=== PATIENT | female | born 1950 | race Caucasian/White ===

== ENCOUNTER 2019-11-22 08:24 | Emergency (ER) | payer OTHER, SELFPAY ==
[2019-11-22 08:41] VITALS: BP 174/73; PULSE 90; RESP 18; TEMP 36.8; O2SAT 98; BMI 35.2
--- NOTE | 2019-11-22 09:28 | CT_ITS ---
EXAMINATION: CT HEAD WITHOUT CONTRAST CLINICAL INFORMATION: Headache. COMPARISON: Previous head CT most recent May 2018 TECHNIQUE: Contiguous axial imaging was performed from the skull base to vertex without intravenous administration of contrast. This CT examination was performed using dose optimization techniques as appropriate, variously including the following: *Automated exposure control *Adjustment of mA and/or kV according to patient size (this includes techniques or standardized protocols for targeted exams where dose is matched to indication/reason for exam; i.e. extremities or head) *Use of iterative reconstruction technique DLP: 613 mGy-cm FINDINGS: There is no evidence of an extra-axial collection. There is no evidence of intra or extra-axial hemorrhage. The ventricles and extra-axial CSF spaces are slightly prominent. There is a normal anatomic variant, cavum of septum pellucidum and cavum vergae. There is mild nonspecific periventricular white matter disease. No mass, mass effect or infarct is seen. View at bone windows is normal. There is inflammatory change in the left ethmoid air cells. Visualized paranasal sinuses, mastoid air cells and middle ears are otherwise clear. IMPRESSION: No acute findings.
--- NOTE | 2019-11-22 09:29 | ED_ITS ---
HPI - Headache General Chief Complaint: Headache Stated Complaint: HEADACHE Time Seen by Provider: 11/22/19 09:22 Source: patient Mode of arrival: ambulatory Limitations: no limitations History of Present Illness HPI Narrative: 69 YEARS OLD OF FEMALE PRESENTED AMBULATORY TO THE EMERGENCY DEPARTMENT WITH A CHIEF COMPLAINT OF A HEADACHE, SHE STATES THAT THE HEADACHE STARTED 2 WEEKS AGO, THERE IS NO VOMITING, NO FEVER NO NECK PAIN. SHE STATES THAT SHE HAD A REMOTE HISTORY OF A MIGRAINE HEADACHE. SHE HAS BEEN TAKING IMITREX WITHOUT ANY RELIEF OF MD elicited complaint: headache Pertinent past history: hypertension Onset (ago): week(s) (2) Onset description: gradually Location: other ( DIFFUSE) Severity: moderate Quality & Timing: aching Exacerbating factors: none Related Data Allergies Allergy/AdvReac Type Severity Reaction Status Date / Time codeine [Codeine] Allergy Mild UPSET Verified 11/22/19 08:41 STOMACH, visual impairment DEQUAN Inhibitors AdvReac Intermediate COUGH Verified 11/22/19 08:41 [DEQUAN INHIBITORS] hydrochlorothiazide AdvReac Intermediate HYPONATREMI Verified 11/22/19 08:41 [HYDROCHLOROTHIAZIDE] A dequan inhibitors Allergy Unknown Unknown Uncoded 11/22/19 08:41 Review of Systems Review of Systems: Yes all other systems are reviewed and are negative Cardiovascular: Cardiovascular: Reports no additional cardiovascular comp laints Gastrointestinal: Gastrointestinal: Reports no additional gastrointestinal complaints Neurologic: Reports system reviewed and no additional complaints, except as documented PMFSH Past Medical History Attestation statement: The following information was validated with the patient. Medical History Diabetes Hypertension Social History Social History Alcohol intake: never Smoking Status: Never smoker Use of substances other than those prescribed or required for medical reasons: No Advance Directives: No Advance Directives Information Provided: No Physical Exam Vital Signs: Vital Signs: Vital Signs Temp Pulse Resp BP Pulse Ox 11/22/19 10:22 84 18 124/56 L 99 11/22/19 08:41 98.3 F 90 18 174/73 H 98 Body Mass Index 35.2 Const: General: cooperative, healthy appearing, comfortable, no acute distress, well developed, alert, awake and Physically active HENMT: Head: Yes normal to inspection Eyes: General: appearance normal, both eyes and all related structures Neck: Neck: Yes normal visual inspection Chest: Chest palpation & inspection: normal inspection of the chest and normal palpation of entire chest wall Resp: Effort & Inspection: normal respiratory effort and able to speak in complete sentences Cardio: Jugular venous distension: no JVD Palpation: normal PMI Rate: regular rate GI: Inspection: Yes normal to inspection Skin: General skin exam: no rashes or lesions noted Rashes: no rashes Trauma: no lacerations or abrasions Course Reevaluation(s) Reevaluation #1: REEXAMINED SHE IS FEELING MUCH BETTER THE HEADACHE IS GONE, HEAD CT IS NEGATIVE, LABS ARE NORMAL, SHE CAN BE DISCHARGED HOME WITH FOLLOW-UP WITH THE PRIMARY CARE PHYSICIAN Time: 11:18 MDM - Headache Lab Data Result diagrams: 11/22/19 10:14 11/22/19 10:14 Labs: Lab Results 11/22/19 11/22/19 11/22/19 Range/Units 09:54 09:54 10:14 WBC Cancelled 6.5 RBC Cancelled 4.31 Hgb Cancelled 13.3 Hct Cancelled 39.5 MCV Cancelled 91.6 MCH Cancelled 30.9 MCHC Cancelled 33.7 RDW Cancelled 13.1 Plt Count Cancelled 188 MPV Cancelled 9.6 Immature Gran % (Auto) Cancelled 0.3 Neut % (Auto) Cancelled 64.1 Lymph % (Auto) Cancelled 26.1 Surry % (Auto) Cancelled 8.1 Eos % (Auto) Cancelled 1.1 Baso % (Auto) Cancelled 0.3 Lymph # (Auto) Cancelled 1.7 Surry # (Auto) Cancelled 0.5 Eos # (Auto) Cancelled 0.1 Baso # (Auto) Cancelled 0.0 Abs Immat Gran (auto) Cancelled 0.02 Absolute Neuts (auto) Cancelled 4.2 Absolute Nucleated RBC Cancelled 0.000 Nucleated RBC % (auto) Cancelled 0.0 Sodium Cancelled Potassium Cancelled Chloride Cancelled Carbon Dioxide Cancelled Anion Gap Cancelled BUN Cancelled Creatinine Cancelled Estim Creat Clear Calc Cancelled Estimated GFR Cancelled Random Glucose Cancelled Calcium Cancelled Total Bilirubin Cancelled AST Cancelled ALT Cancelled Alkaline Phosphatase Cancelled Total Protein Cancelled Albumin Cancelled 11/22/19 Range/Units 10:14 WBC RBC Hgb Hct MCV MCH MCHC RDW Plt Count MPV Immature Gran % (Auto) Neut % (Auto) Lymph % (Auto) Surry % (Auto) Eos % (Auto) Baso % (Auto) Lymph # (Auto) Surry # (Auto) Eos # (Auto) Baso # (Auto) Abs Immat Gran (auto) Absolute Neuts (auto) Absolute Nucleated RBC Nucleated RBC % (auto) Sodium 137 Potassium 4.2 Chloride 105 Carbon Dioxide 27 Anion Gap 9 L BUN 13 Creatinine 0.82 Estim Creat Clear Calc 52.4 Estimated GFR > 60 Random Glucose 140 H Calcium 8.5 Total Bilirubin 0.3 AST 46 H ALT 58 H Alkaline Phosphatase 87 Total Protein 6.9 Albumin [address] scan - head: Radiologist's impression: NAD Discharge Plan Discharge Clinical Impression: Headache Patient Disposition: Home, Self-Care Instructions: Acute Headache (ED)
[2019-11-22 10:17] LABS: MANUAL DIFF FLAG NO
[2019-11-22 10:22] VITALS: BP 124/56; PULSE 84; RESP 18; O2SAT 99
[2019-11-22 10:23] LABS: Basophils Percent Auto 0.3 % (0-2); Eosinophils Absolute Auto 0.1 X10*3/uL (0.0-0.4); Eosinophils Percent Auto 1.1 % (0-4); Hematocrit 39.5 % (37-47); Hemoglobin 13.3 g/dl (12.0-16.0); Imm Gran Abs Auto 0.02 X10*3/uL (0.00-0.03); Imm Gran Pct Auto 0.3 % (0.0-0.4); Lymphocytes Absolute Auto 1.7 X10*3/uL (1.2-4.9); Lymphocytes Percent Auto 26.1 % (20-40); Mean Corpuscular HGB Conc 33.7 g/dl (31.0-35.0); Mean Corpuscular Hemoglobin 30.9 pg (27.0-33.0); Mean Corpuscular Volume 91.6 fL (80-98); Mean Platelet Volume 9.6 fL (9.4-12.3); Monocytes Absolute Auto 0.5 X10*3/uL (0.1-1.2); Monocytes Percent Auto 8.1 % (2-11); Neutrophils Absolute Auto 4.2 X10*3/uL (2.0-8.3); Neutrophils Percent Auto 64.1 % (45-73); Platelet Count 188 X10*3/uL (160-400); Red Blood Count 4.31 X10*6/uL (4.20-5.50); Red Cell Distribution Width 13.1 % (11.0-16.0); White Blood Count 6.5 X10*3/uL (4.8-10.8)
[2019-11-22 10:53] LABS: Alanine Aminotransferase 58 U/L (0-31); Albumin Level 3.9 g/dL (3.5-5.0); Alkaline Phosphatase 87 U/L (39-117); Aspartate Amino Transferase 46 U/L (5-31); Bilirubin Total 0.3 mg/dL (0.0-1.0); Blood Urea Nitrogen 13 mg/dL (9-16); Calcium 8.5 mg/dL (8.4-10.2); Creatinine Clr Calc Pharmacy 52.4; Estimated Glomerular Filt Rate > 60; Glucose Random 140 mg/dL (60-115); Total Protein 6.9 g/dL (6.5-8.0)
[2019-11-22 11:07] LABS: Anion Gap 9 (12-20); Carbon Dioxide 27 mmol/L (22-29); Chloride 105 mmol/L (96-108); Potassium 4.2 mmol/l (3.3-5.1); Sodium 137 mmol/L (135-145)
[2019-11-22 11:22] VITALS: BP 148/63; PULSE 76; RESP 18; TEMP 36.8; O2SAT 98
== END 2019-11-22 11:55 | disposition home or self-care (01) ==
PROVIDERS: Emergency Provider Emergency Medicine; PCP Family Medicine
DX: R51.9 Headache, unspecified (principal); Z79.899 Other long term (current) drug therapy
CPT/HCPCS: 36415; 70450; 80053; 85025; 99284

== ENCOUNTER → 2019-11-26 09:12 | Outpatient (BNVA) | payer OTHER, SELFPAY | PROVIDERS: PCP Family Medicine; Referring Provider Family Medicine; Visit Provider Psychiatry & Neurology Neurology | DX: G47.33 Obstructive sleep apnea (adult) (pediatric) (principal) | CPT/HCPCS: 99204 ==

== ENCOUNTER → 2019-12-04 10:02 | Outpatient (BNVA) | payer OTHER, SELFPAY | PROVIDERS: PCP Family Medicine; Visit Provider Surgery | DX: C50.919 Malignant neoplasm of unspecified site of unspecified female breast (principal) | CPT/HCPCS: 99212 ==

== ENCOUNTER 2019-12-17 13:51 | Outpatient (REF) | payer OTHER, SELFPAY ==
--- NOTE | 2019-12-17 | US_ITS ---
EXAMINATION: US TRIPLEX SCANNING RIGHT UPPER EXTREMITY CLINICAL INFORMATION: Pain in right forearm COMPARISON: None. TECHNIQUE: Color-flow triplex imaging with spectral analysis and compression Doppler were performed on the right upper extremity. FINDINGS: Respiratory variation, normal compression and augmented flow are noted throughout the right upper extremity. The visualized basilic vein, cephalic vein, axillary vein and subclavian vein segments show no evidence of deep venous thrombosis. US/US venous duplex UE RT IMPRESSION: Normal triplex scan without evidence of deep venous thrombosis involving the right upper extremity.
--- NOTE | 2019-12-17 | XR_ITS ---
EXAMINATION: XR ELBOW, RIGHT CLINICAL INFORMATION: Right elbow pain COMPARISON: None TECHNIQUE: AP, lateral, and oblique views of the right elbow. FINDINGS: Chronic well-corticated ossification adjacent the medial epicondyle, presumably sequelae of remote prior trauma or injury (epicondylitis). No fracture, dislocation, or joint effusion seen. XR/XR elbow RT min 3V IMPRESSION: No acute osseous abnormality.
== END 2019-12-17 13:52 | disposition home or self-care (01) ==
LOC: HO.HMGCX 13:51
PROVIDERS: Visit Provider Emergency Medicine
DX: M25.521 Pain in right elbow (principal); M79.631 Pain in right forearm
CPT/HCPCS: 73080; 84550; 86618; 93971

== ENCOUNTER → 2020-01-13 09:20 | Outpatient (BNVA) | payer OTHER, SELFPAY | PROVIDERS: PCP Family Medicine; Referring Provider Family Medicine; Visit Provider Orthopaedic Surgery | DX: M77.10 Lateral epicondylitis, unspecified elbow (principal) | CPT/HCPCS: 99202 ==

== ENCOUNTER → 2020-01-20 19:14 | Outpatient (REF) | payer MEDICARE, SELFPAY | LOC: HO.SL 19:14 | PROVIDERS: PCP Family Medicine; Visit Provider Psychiatry & Neurology Neurology | DX: G47.33 Obstructive sleep apnea (adult) (pediatric) (principal) | CPT/HCPCS: 95810 ==

== ENCOUNTER → 2020-01-28 09:19 | Outpatient (BNVA) | payer MEDICARE, SELFPAY | PROVIDERS: PCP Family Medicine; Visit Provider Psychiatry & Neurology Neurology | DX: Z76.89 Persons encountering health services in other specified circumstances (principal) ==

== ENCOUNTER 2020-02-12 10:30 | Outpatient (RCR) | payer MEDICARE, SELFPAY ==
--- NOTE | 2020-02-12 10:34 | MHC.OT.DC ---
[address] [phone] F: [phone] Occupational Therapy Discharge Note Provider: Kevyn Perez Diagnosis: RIGHT LATERAL EPICONDYLITIS Date of Surgery: Date of Evaluation: 01/28/20 Date of Discharge: Treatments to Date: 5 Cancellations to Date: No Shows to Date: Discharge Status: Achieved Goals Improved Function Independent with HEP Patient Elected to Stop Discharge Summary: Pt REPORTS A GOOD DEC IN PAIN . PAINFREE AROM AND LIGHT ACTIVITY. 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 Electronically Signed By: RITA BENJAMIN OT CHT CLT Reviewed/agree with student documentation: N/A Therapist: Please Sign and return to therapist, thank you for your referral.
== END 2020-04-30 15:40 | disposition other institution (70) ==
LOC: HO.OT 10:30
PROVIDERS: Visit Provider Orthopaedic Surgery
DX: M77.11 Lateral epicondylitis, right elbow (principal)
CPT/HCPCS: 29130; 97033; 97035; 97110; 97140; 97165; 97760

== ENCOUNTER 2020-02-20 12:22 | Outpatient (REF) | payer MEDICARE, SELFPAY ==
[2020-02-20 14:51] LABS: Alanine Aminotransferase 62 U/L (0-31); Albumin Level 3.8 g/dL (3.5-5.0); Alkaline Phosphatase 84 U/L (39-117); Anion Gap 10 (12-20); Aspartate Amino Transferase 51 U/L (5-31); Bilirubin Total 0.3 mg/dL (0.0-1.0); Blood Urea Nitrogen 12 mg/dL (9-16); Calcium 8.4 mg/dL (8.4-10.2); Carbon Dioxide 27 mmol/L (22-29); Chloride 105 mmol/L (96-108); Cholesterol 171 mg/dL; Estimated Glomerular Filt Rate > 60; Glucose Random 153 mg/dL (60-115); HDL Cholesterol 47 mg/dL; LDL Cholesterol Calculated 101 mg/dl; Potassium 4.1 mmol/l (3.3-5.1); Sodium 138 mmol/L (135-145); Total Protein 7.5 g/dL (6.5-8.0); Triglycerides 119 mg/dL
[2020-02-20 15:12] LABS: Creatinine Urine 37.63 mg/dL; Microalbum/Creatinine Ratio Ur 71.7 ug/mg cr
[2020-02-20 15:13] LABS: Vitamin D 25-OH Total 35.4 ng/mL (>30)
[2020-02-21 08:37] LABS: C Peptide 6.79 ng/mL (0.80-3.85); LDL Cholesterol Direct 108 mg/dL (<100)
== END 2020-02-20 12:23 | disposition home or self-care (01) ==
LOC: HO.LAB 12:22
PROVIDERS: PCP Family Medicine; Referring Provider Family Medicine; Visit Provider Internal Medicine
DX: E11.65 Type 2 diabetes mellitus with hyperglycemia (principal); Z79.4 Long term (current) use of insulin; I10 Essential (primary) hypertension; E55.9 Vitamin D deficiency, unspecified; E78.5 Hyperlipidemia, unspecified
CPT/HCPCS: 36415; 80053; 80061; 82043; 82306; 82947; 83721; 84681; 99202

== ENCOUNTER → 2020-03-13 08:49 | Outpatient (BNVA) | payer MEDICARE, SELFPAY | PROVIDERS: PCP Family Medicine; Visit Provider Dietitian, Registered ==

== ENCOUNTER → 2020-03-17 10:13 | Outpatient (BNVA) | payer MEDICARE, SELFPAY | PROVIDERS: PCP Family Medicine; Visit Provider Psychiatry & Neurology Neurology | DX: Z13.89 Encounter for screening for other disorder (principal) | CPT/HCPCS: Q3014 ==

== ENCOUNTER → 2020-04-22 09:41 | Outpatient (BNVA) | payer MEDICARE, SELFPAY | PROVIDERS: PCP Family Medicine; Visit Provider Surgery | DX: C50.919 Malignant neoplasm of unspecified site of unspecified female breast (principal) | CPT/HCPCS: 99212 ==

== ENCOUNTER 2020-05-18 12:12 | Outpatient (REF) | payer MEDICARE, SELFPAY ==
--- NOTE | ~2020-05-18 | MM_ITS ---
EXAMINATION: MM DIAGNOSTIC DIGITAL BREAST TOMOSYNTHESIS, BILATERAL US DIAGNOSTIC ULTRASOUND BREAST, RIGHT CLINICAL INFORMATION: Right breast pain 1-2 months upper outer quadrant. Prior history bilateral breast cancer, most recently left 2018. Left excisional biopsy for calcifications upper quadrant 03/18/2019 (fat necrosis, calcifications, and chronic inflammation). Due for yearly. COMPARISON: Mammography: 03/18/2019, 02/21/2019, 11/20/2017, 11/01/2017, 10/27/2017, 03/08/2017 TECHNIQUE: Digital breast tomosynthesis is performed in both the craniocaudal and mediolateral oblique views along with computer-aided detection (CAD). Synthesized 2D images are generated from the tomosynthesis. Additional views are obtained: Magnification left CC, magnification left ML, magnification left MLO x2, right CC, exaggerated left CC. Ultrasound right breast is targeted to both the inner and outer quadrants. Grayscale imaging and color Doppler are performed without and with harmonics. FINDINGS: The breasts are heterogeneously dense, which may obscure small masses (ACR BI-RADS breast composition Category c). Breast tissue borders on average fibroglandular. There are bilateral post surgical changes with reduced breast size and scarring and dystrophic calcifications. Smooth left breast thickening again seen. There are segmental calcifications posterior upper left breast better appreciated on current exam with magnification views. They are likely without significant change from prior left MLO views in 2018. These calcifications will be reassessed again with mammography in 6 months. The right breast shows no interval mass or architectural abnormality or abnormal calcifications. There is no coarsening of the Mateo's ligaments. No focal inflammatory changes. Ultrasound right breast demonstrates no cystic or solid mass or architectural abnormality. No edema tracking in soft tissue planes. No hyperemia. Results are discussed with the patient at time of visit, using an bench manager. MM/MM tomosynthesis diagnostic BI IMPRESSION: 1. Right: No mammographic evidence of malignancy or inflammatory changes. Unremarkable right breast ultrasound. 2. Left: Probable benign calcifications posterior upper breast, likely chronic. ASSESSMENT: BI-RADS 3: Probably Benign RECOMMENDATION: 1. Patient's right breast symptoms should be based on the clinical impression. 2. Diagnostic left mammography in 6 months to include magnification views. This patient's information was entered into a reminder system with a target due date for their next mammogram.
--- NOTE | ~2020-05-18 | US_ITS ---
Right breast ultrasound is described in single combined report along with the bilateral diagnostic digital breast tomosynthesis under accession number [id number].
== END 2020-05-18 12:13 | disposition home or self-care (01) ==
LOC: HO.MAMMO 12:12
PROVIDERS: PCP Family Medicine; Visit Provider Surgery
DX: N64.4 Mastodynia (principal); Z85.3 Personal history of malignant neoplasm of breast
CPT/HCPCS: 76642; 77062; 77066

== ENCOUNTER → 2020-06-12 09:20 | Outpatient (BNVA) | payer MEDICARE, SELFPAY | PROVIDERS: PCP Family Medicine; Visit Provider Dietitian, Registered | DX: E11.65 Type 2 diabetes mellitus with hyperglycemia (principal); Z79.4 Long term (current) use of insulin | CPT/HCPCS: 97803 ==

== ENCOUNTER → 2020-07-23 09:46 | Outpatient (BNVA) | payer MEDICARE, SELFPAY | PROVIDERS: Visit Provider Surgery | DX: C50.919 Malignant neoplasm of unspecified site of unspecified female breast (principal) | CPT/HCPCS: 99212 ==

== ENCOUNTER → 2020-07-27 13:24 | Outpatient (BNVA) | payer MEDICARE, SELFPAY | PROVIDERS: PCP Family Medicine; Visit Provider Internal Medicine Endocrinology, Diabetes & Metabolism | DX: Z13.89 Encounter for screening for other disorder (principal) | CPT/HCPCS: Q3014 ==

== ENCOUNTER 2020-07-28 09:06 | Outpatient (REF) | payer MEDICARE, SELFPAY ==
[2020-07-28 10:37] LABS: Estimated Average Glucose 126 mg/dL
[2020-07-28 10:46] LABS: Alanine Aminotransferase 31 U/L (0-31); Alkaline Phosphatase 88 U/L (39-117); Anion Gap 13 (12-20); Aspartate Amino Transferase 28 U/L (5-31); Bilirubin Total 0.4 mg/dL (0.0-1.0); Blood Urea Nitrogen 16 mg/dL (9-16); Calcium 9.3 mg/dL (8.4-10.2); Carbon Dioxide 28 mmol/L (22-29); Chloride 103 mmol/L (96-108); Cholesterol 126 mg/dL; Estimated Glomerular Filt Rate 51; Glucose Fasting 72 mg/dL (60-99); HDL Cholesterol 51 mg/dL; LDL Cholesterol Calculated 63 mg/dl; Potassium 4.7 mmol/L (3.3-5.1); Sodium 139 mmol/L (135-145); Total Protein 7.5 g/dL (6.5-8.0); Triglycerides 64 mg/dL
[2020-07-29 08:42] LABS: LDL Cholesterol Direct 61 mg/dL (<100)
== END 2020-07-28 09:07 | disposition home or self-care (01) ==
LOC: HO.LAB 09:06
PROVIDERS: Visit Provider Internal Medicine Endocrinology, Diabetes & Metabolism
DX: E11.65 Type 2 diabetes mellitus with hyperglycemia (principal)
CPT/HCPCS: 36415; 80053; 80061; 83036; 83721

== ENCOUNTER 2020-08-03 10:49 | Day surgery (SDC) | payer MEDICARE, SELFPAY ==
--- NOTE | 2020-08-03 11:54 | MHC.SHP ---
Pre-Procedural Eval Section A Date of Service: 08/03/20 The patient is an INPATIENT: No Changes since office visit: Yes Patient answered all questions; No Cold of Flu in the past 2 weeks, No New Medical Problems and No Changes in Medication The History & Physical has been completed within 30 days and I have reviewed it.: Yes Section B Chief Complaint: Abdominal Wall Lipoma Allergies: Allergies Allergy/AdvReac Type Severity Reaction Status Date / Time codeine [Codeine] Allergy Mild UPSET Verified 08/03/20 11:29 STOMACH, visual impairment DEQUAN Inhibitors AdvReac Intermediate COUGH Verified 08/03/20 11:29 [DEQUAN INHIBITORS] hydrochlorothiazide AdvReac Intermediate HYPONATREMI Verified 08/03/20 11:29 [HYDROCHLOROTHIAZIDE] A Plan Diagnosis/Plan: Unchanged I have reviewed the history and physical and performed a pertinent physical examination on my patient. No changes have occurred unless specified.
[2020-08-03 11:58] VITALS: BP 135/61; PULSE 89; RESP 18; TEMP 36; O2SAT 96; BMI 32.8
--- NOTE | 2020-08-03 12:00 | HO.ANESPROP2 ---
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 (Acute) Diabetes type 2, uncontrolled (Acute) Breast pain, right (Acute) Obstructive sleep apnea (Acute) Vitamin D deficiency (Acute) HLD (hyperlipidemia) (Acute) HTN (hypertension) (Acute) T2DM (type 2 diabetes mellitus) (Acute) Triple negative malignant neoplasm of breast (Acute) Invasive ductal carcinoma of breast (Acute) Obstructive sleep apnea (Acute) Past Medical History Medical History Barretts esophagus Bipolar disorder Diabetes Diabetes type 2, uncontrolled Hepatitis C HLD (hyperlipidemia) HTN (hypertension) Hypertension Invasive ductal carcinoma of breast 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 Father No problems noted. Mother No problems noted. Surgical History Surgical History H/O parotidectomy History of cholecystectomy Status post left breast lumpectomy Status post right breast lumpectomy Social History Social History Alcohol intake: never Advance Directives: No Advance Directives Information Provided: Yes Current occupational status: unemployed Current occupation: right handed Meds Allergies Allergy/AdvReac Type Severity Reaction Status Date / Time codeine [Codeine] Allergy Mild UPSET Verified 08/03/20 11:29 STOMACH, visual impairment DEQUAN Inhibitors AdvReac Intermediate COUGH Verified 08/03/20 11:29 [DEQUAN INHIBITORS] hydrochlorothiazide AdvReac Intermediate HYPONATREMI Verified 08/03/20 11:29 [HYDROCHLOROTHIAZIDE] A Active Medications: Current Medications Generic Name Dose Route Start Last Admin Trade Name Freq PRN Reason Stop Dose Admin Lactated Ringer's 1,000 mls @ 100 mls/hr 08/03/20 11:30 Lr IVCONT .Q10H [place] Home Medications Medication Instructions Recorded Confirmed Last Taken Type albuterol sulfate 90 mcg/actuation 2 puff INHALATION Q4-6H PRN 12/04/19 07/27/20 Unknown History aerosol inhaler amlodipine 5 mg tablet 5 mg PO DAILY 12/04/19 07/27/20 08/03/20 06:30 History ascorbate calcium (vitamin C) 500 500 mg PO BID 12/04/19 07/27/20 Unknown History mg tablet cholecalciferol (vitamin D3) 25 25 mcg PO DAILY 12/04/19 07/27/20 08/03/20 06:30 History mcg (1,000 unit) capsule clonazepam 0.5 mg tablet 0.5 mg PO DAILY 12/04/19 07/27/20 08/03/20 06:30 History folic acid 1 mg tablet 1 mg PO DAILY 12/04/19 07/27/20 08/03/20 06:30 History gabapentin 100 mg capsule 100 mg PO BID 12/04/19 07/27/20 08/03/20 06:30 History metoprolol tartrate 50 mg tablet 50 mg PO BID 12/04/19 07/27/20 08/03/20 06:30 History vitamin B complex 1 tab PO DAILY 12/04/19 07/27/20 Unknown History acetaminophen 500 mg tablet 0 mg PO 02/20/20 07/27/20 Unknown History blood sugar diagnostic #10 ea 02/20/20 07/27/20 Unknown History calcium carbonate 500 mg calcium 500 mg PO BID 02/20/20 07/27/20 08/03/20 06:30 History (1,250 mg) tablet cyanocobalamin (vitamin B-12) 1,000 mcg PO QAM 02/20/20 07/27/20 08/03/20 06:30 History 1,000 mcg tablet duloxetine 60 mg capsule,delayed 60 mg PO DAILY 02/20/20 07/27/20 08/03/20 06:30 History release mirtazapine 30 mg tablet [id number] mg PO BEDTIME 02/20/20 07/27/20 Unknown History olanzapine 10 mg tablet 10 mg PO BEDTIME 02/20/20 07/27/20 Unknown History pen needle, diabetic 31 gauge x #50 ea 02/20/20 07/27/20 Unknown History 3/16 sumatriptan succinate 50 mg tablet 50 mg PO 02/20/20 07/27/20 Unknown History Exam Exam Date and Time: August 03, 2020 [address] Air[address] Mallampati Class: IV TM Dist: >3cm Neck ROM: Full Heart: RRR Lungs: CTA
[2020-08-03] MEDS: Lactated Ringers 1,000 ML 100 ML IVCONT (12:06)
[2020-08-03 12:07] LABS: Glucose, Whole Blood 82 mg/dL (60-115)
--- NOTE | 2020-08-03 12:54 | P.OP_ITS ---
Operative Note Operative Note Date of Service: 08/03/20 Narrative: Preoperative diagnosis: Lipoma right abdominal wall Postoperative diagnosis:Subcutaneous inclusion cyst right abdominal wall Procedure: Excision of subcutaneous cyst right abdominal wall Surgeon: Adrian Barnes MD Clamp Jig Assembler: No physician Anesthesia: General LMA Indications for procedure:69 year old female with history of bilateral breast cancer presenting with a soft tissue mass in the right upper abdomen, tender to palpation. Patient requests an excision under general anesthesia. Operative findings: Cystic lesion in the subcutaneous tissue, 1 cm diameter Specimen:Lesion right abdominal wall Estimated blood loss: 1 ml Complications:none Procedure details:Patient was brought to the OR and placed in a supine position. After administering general anesthesia the patient's abdomen was prepped with ChloraPrep and draped in a sterile fashion. A surgical time-out was called the consent confirmed. Patient received preoperative antibiotics and Venodyne boots were placed. Local anesthesia consisting of 0.25% Sensorcaine with epinephrine was infiltrated in a transverse fashion over the palpable mass in the right upper quadrant. Incision was then made with a scalpel carried out through subcutan eous tissue. Sharp dissection was then used to dissect and excise the palpable mass in the right upper quadrant. This appeared to be a cystic lesion within the subcutaneous tissue without attachment to the dermis or epidermis. The lesion was completely excised and sent to pathology for further examination. Wounds were irrigated with saline solution and suctioned dry. Dermis was then reapproximated using interrupted 4-0 Polysorb sutures. Skin was then closed using a running subcuticular 4-0 Polysorb suture. Steri-Strips 2 x 2 gauze and Tegaderm were then applied. The patient tolerated the procedure well. Sponge, instrument, needle counts reported as correct. Patient was transferred to PACU in stable condition.
[2020-08-03 13:01] VITALS: BP 147/64; PULSE 109; RESP 20; TEMP 36.1; O2SAT 95
[2020-08-03 13:06] VITALS: BP 144/63; PULSE 103; RESP 18; O2SAT 96
[2020-08-03 13:11] VITALS: BP 128/63; PULSE 101; RESP 16; O2SAT 95
[2020-08-03 13:15] VITALS: BP 149/68; PULSE 98; RESP 16; O2SAT 96
[2020-08-03 13:30] VITALS: BP 144/69; PULSE 91; RESP 18; O2SAT 96
== END 2020-08-03 14:06 | disposition home or self-care (01) ==
PROVIDERS: Visit Provider Surgery
PROC: (CPT 11401; principal; 2020-08-03 12:40)
DX: L72.0 Epidermal cyst (principal); K22.70 Barrett's esophagus without dysplasia; E11.9 Type 2 diabetes mellitus without complications; I10 Essential (primary) hypertension; M06.9 Rheumatoid arthritis, unspecified; Z85.3 Personal history of malignant neoplasm of breast; Z79.4 Long term (current) use of insulin; Z79.899 Other long term (current) drug therapy; Z90.49 Acquired absence of other specified parts of digestive tract; Z88.8 Allergy status to other drugs, medicaments and biological substances
CPT/HCPCS: 11401; 82947; 88304; J0690; J2250; J2405; J3010

== ENCOUNTER → 2020-08-11 08:41 | Outpatient (BNVA) | payer MEDICARE, SELFPAY | PROVIDERS: Visit Provider Psychiatry & Neurology Neurology | DX: Z13.89 Encounter for screening for other disorder (principal) | CPT/HCPCS: Q3014 ==

== ENCOUNTER → 2020-08-13 11:21 | Outpatient (BNVA) | payer MEDICARE, SELFPAY | PROVIDERS: Visit Provider Surgery | DX: Z48.817 Encounter for surgical aftercare following surgery on the skin and subcutaneous tissue (principal); Z87.2 Personal history of diseases of the skin and subcutaneous tissue | CPT/HCPCS: 99212 ==

== ENCOUNTER → 2020-08-14 09:45 | Outpatient (BNVA) | payer MEDICARE, SELFPAY | PROVIDERS: Visit Provider Dietitian, Registered | DX: E11.65 Type 2 diabetes mellitus with hyperglycemia (principal); Z79.4 Long term (current) use of insulin | CPT/HCPCS: 97803 ==

== ENCOUNTER 2020-09-13 07:48 | Emergency (ER) | payer MEDICARE, SELFPAY ==
--- NOTE | ~2020-09-13 | XR_ITS ---
EXAMINATION: PORTABLE CHEST 1 VIEW CLINICAL INFORMATION: MED CLEARANCE . COMPARISON: 05/25/2018. TECHNIQUE: Portable frontal view of the chest was obtained. FINDINGS: The lungs are well expanded. No focal infiltrate, effusion, edema, or pneumothorax. Cardiac and mediastinal silhouettes are within normal limits for size with vascular calcification in aorta. Degenerative changes in the spine and shoulders. No acute bony abnormality seen. XR/XR chest 1V IMPRESSION: No evidence of acute disease.
--- NOTE | ~2020-09-13 | CT_ITS ---
EXAMINATION: CT HEAD WITHOUT CONTRAST CLINICAL INFORMATION: Weakness for one month COMPARISON: Head CT November 22, 2019 TECHNIQUE: Contiguous axial imaging was performed from the skull base to vertex without intravenous administration of contrast. This CT examination was performed using dose optimization techniques as appropriate, variously including the following: *Automated exposure control *Adjustment of mA and/or kV according to patient size (this includes techniques or standardized protocols for targeted exams where dose is matched to indication/reason for exam; i.e. extremities or head) *Use of iterative reconstruction technique DLP: 610 mGy-cm FINDINGS: There is no evidence of acute intracranial hemorrhage or territorial infarction. No abnormal mass effect or midline shift is appreciated. Valladares-white differentiation is well preserved. No extra-axial fluid collections. The ventricular system and cortical sulci are prominent, consistent with volume loss. There are areas of low density in the periventricular and subcortical white matter, most consistent with sequelae of microvascular ischemic change. The osseous structures and soft tissues are normal. There are calcifications of the cavernous internal carotid arteries. The visualized paranasal sinuses and mastoid air cells are well aerated. CT/CT head/brain wo con IMPRESSION: Chronic microvascular ischemic changes with no CT evidence of acute intracranial abnormality.
[2020-09-13 08:21] VITALS: BP 152/71; PULSE 101; RESP 16; O2SAT 99; BMI 30.8
--- NOTE | 2020-09-13 08:56 | ECG_ITS ---
Test Reason : PYSCH Blood Pressure : / mmHG Vent. Rate : 096 BPM Atrial Rate : 096 BPM P-R Int : 118 ms QRS Dur : 070 ms QT Int : 336 ms P-R-T Axes : 074 -04 002 degrees QTc Int : 424 ms Normal sinus rhythm Voltage criteria for left ventricular hypertrophy Inferior infarct , age undetermined Abnormal ECG When compared with ECG of 25-MAY-2018 22:04, Inferior infarct is now Present Referred By: Mayela Coughlin Electronically Signed By:Taurus Szymanski
[2020-09-13 10:13] LABS: MANUAL DIFF FLAG NO
[2020-09-13 10:14] LABS: Basophils Percent Auto 0.2 % (0-2); Eosinophils Percent Auto 0.1 % (0-4); Hematocrit 44.4 % (37-47); Hemoglobin 14.7 g/dl (12.0-16.0); Imm Gran Abs Auto 0.05 X10*3/uL (0.00-0.03); Imm Gran Pct Auto 0.4 % (0.0-0.4); Lymphocytes Absolute Auto 1.6 X10*3/uL (1.2-4.9); Lymphocytes Percent Auto 12.5 % (20-40); Mean Corpuscular HGB Conc 33.1 g/dl (31.0-35.0); Mean Corpuscular Hemoglobin 30.9 pg (27.0-33.0); Mean Corpuscular Volume 93.5 fL (80-98); Mean Platelet Volume 10.1 fL (9.4-12.3); Monocytes Absolute Auto 0.7 X10*3/uL (0.1-1.2); Monocytes Percent Auto 5.6 % (2-11); Neutrophils Absolute Auto 10.7 X10*3/uL (2.0-8.3); Neutrophils Percent Auto 81.2 % (45-73); Platelet Count 202 X10*3/uL (160-400); Red Blood Count 4.75 X10*6/uL (4.20-5.50); Red Cell Distribution Width 13.3 % (11.0-16.0); White Blood Count 13.1 X10*3/uL (4.8-10.8)
[2020-09-13 10:43] VITALS: BP 151/74; PULSE 84; RESP 16; O2SAT 96
[2020-09-13 10:44] LABS: Alanine Aminotransferase 35 U/L (0-31); Alkaline Phosphatase 94 U/L (39-117); Anion Gap 16 (12-20); Aspartate Amino Transferase 25 U/L (5-31); Bilirubin Total 0.3 mg/dL (0.0-1.0); Blood Urea Nitrogen 13 mg/dL (9-16); Calcium 9.4 mg/dL (8.4-10.2); Carbon Dioxide 20 mmol/L (22-29); Chloride 107 mmol/L (96-108); Creatinine Clr Calc Pharmacy 46.4; Estimated Glomerular Filt Rate 59; Glucose Random 147 mg/dL (60-115); Magnesium 2.2 mg/dL (1.6-2.6); Sodium 138 mmol/L (135-145); Total Protein 8.2 g/dL (6.5-8.0)
[2020-09-13 10:45] LABS: B Type Natriuretic Peptide < 10 pg/mL (<100)
[2020-09-13 11:01] LABS: Influenza A PCR NEGATIVE (Negative); Influenza B PCR NEGATIVE (Negative); Resp Syncy Virus RNA Qual PCR NEGATIVE (Negative); SARS COV2 PCR INHOUSE NEGATIVE (Negative)
[2020-09-13 11:17] LABS: Lactic Acid 1.4 mmol/L (0.5-2.0)
[2020-09-13 12:01] LABS: Glucose Urine UA NEG (NEG); Leukocyte Esterase Urine 3+ (NEG); Nitrite Urine NEG (NEG); Specific Gravity - Urine <= 1.005 (1.005-1.025); UACC Culture Trigger YES; Urine Blood TRACE (NEG); Urine Ketones NEG (NEG); Urine Protein NEG (NEG-TRACE)
[2020-09-13 12:07] LABS: Appearance Urine HAZY; Color Urine STRAW
--- NOTE | 2020-09-13 12:13 | ED.PSYCH ---
HPI - Psych General Chief Complaint: Psychiatric Symptoms Stated Complaint: Psychiatric Symptoms Time Seen by Provider: 09/13/20 08:46 Source: patient and family Mode of arrival: ambulatory Limitations: language barrier (Cuban-speaking) History of Present Illness HPI Narrative: 69-year-old female with a past medical history of diabetes, hypertension, hyperlipidemia, triple negative malignant neoplasm of breast, invasive ductal carcinoma of breast, obstructive sleep apnea and vitamin-D deficiency who is presenting to the ED with her daughter at bedside because the daughter feels like her mother has become more withdrawn and is not wanting to go to her day program Monday to Monday that she used to be very excited about and she is not eating and drinking like she normally would unless her daughter puts the food in front of her and tells her to eat. She reports that she is med compliant. She recently had an increased dose of olanzapine from 10 mg at bedtime to 15 mg at bedtime although daughter does not see any improvement. The patient denies any of this reports that she is going to the program and is not having any trouble eating. The daughter is just concerned and would like her to be seen psychiatrically an inpatient for psychiatric. Patient denies any symptoms at this time she reports she feels completely fine. Patient denies any drug or alcohol usage. She denies any SI/HI/auditory visual hallucinations thoughts of self-injury. MD complaint: other (Withdrawn) Onset (ago): month(s) (Over the past month) Duration: constant and getting worse History of same: No Relieving factors: none Exacerbating factors: none Associated psychiatric symptoms: none Associated symptoms: denies other symptoms Treatments prior to arrival: none Related Data Home Medications Medication Instructions Recorded Confirmed albuterol sulfate 90 mcg/actuation 2 puff INHALATION Q4-6H PRN 12/04/19 09/13/20 aerosol inhaler (ProAir HFA) amlodipine 5 mg tablet 5 mg PO DAILY 12/04/19 09/13/20 cholecalciferol (vitamin D3) 25 25 mcg PO DAILY 12/04/19 09/13/20 mcg (1,000 unit) capsule clonazepam 0.5 mg tablet (Klonopin) 0.5 mg PO DAILY 12/04/19 09/13/20 folic acid 1 mg tablet 1 mg PO DAILY 12/04/19 09/13/20 gabapentin 100 mg capsule 100 mg PO BID 12/04/19 09/13/20 metoprolol tartrate 50 mg tablet 50 mg PO BID 12/04/19 09/13/20 blood sugar diagnostic #10 ea 02/20/20 07/27/20 cyanocobalamin (vitamin B-12) 1,000 mcg PO QAM 02/20/20 09/13/20 1,000 mcg tablet duloxetine 60 mg capsule,delayed 60 mg PO DAILY 02/20/20 09/13/20 release olanzapine 10 mg tablet 15 mg PO BEDTIME 02/20/20 09/13/20 pen needle, diabetic 31 gauge x #50 ea 02/20/20 07/27/2004/21 mirtazapine 30 mg tablet 30 mg PO DAILY 09/13/20 09/13/20 Previous Rx's Medication Instructions Recorded [id number]-smloruhkwvdsc-kbwkfrob 1 cap PO Q8H PRN #10 cap 11/22/19 50 mg-300 mg-40 mg capsule (Fioricet) Abdirahman POST77.10 #1 ea 01/17/20 Lantus Solostar U-100 Insulin 100 10 unit SUBCUT QPM 30 Days #15 ml 07/27/20 unit/mL (3 mL) subcutaneous pen NS (insulin glargine) atorvastatin 40 mg tablet 40 mg PO DAILY 30 Days #30 tab 07/27/20 losartan 25 mg tablet 25 mg PO DAILY 30 Days #30 tab 07/27/20 semaglutide (Ozempic) 0.5 mg SUBCUT QWEEK #1.5 ml 07/27/20 Allergies Allergy/AdvReac Type Severity Reaction Status Date / Time codeine [Codeine] Allergy Mild UPSET Verified 08/03/20 11:29 STOMACH, visual impairment DEQUAN Inhibitors AdvReac Intermediate COUGH Verified 08/03/20 11:29 [DEQUAN INHIBITORS] hydrochlorothiazide AdvReac Intermediate HYPONATREMI Verified 08/03/20 11:29 [HYDROCHLOROTHIAZIDE] A Review of Systems Review of Systems: Constitutional : No Fever, No Chills ENT/Mouth : No Ear Pain, No Nasal Congestion, No sore throat Eyes: No Eye Pain, No Swelling, No Redness Cardiovascular : No Chest Pain, No SOB Respiratory : No Cough, No Sputum, No Dyspnea Gastrointestinal : No ingestions, No Nausea, No Vomiting, No Diarrhea, No Hematochezia, No Melena Genitourinary : No Dysuria, No Urinary Frequency, No Hematuria Musculoskeletal : No Myalgias Skin : No Skin Lesions, No rash Neuro : No Weakness, No Numbness, No Paresthesias, No Dizziness, No Headache Psych : No Anxiety, No Depression, No SI, + No thoughts of self injury, No HI, No AVH, Heme/Lymph: No Lymphadenopathy Endocrine : No Polyuria, No Polydipsia Yes all other systems are reviewed and are negative [facility] Past Medical History Attestation statement: The following information was validated with the patient. Medical History Barretts esophagus Bipolar disorder Diabetes Diabetes type 2, uncontrolled Hepatitis C HLD (hyperlipidemia) HTN (hypertension) Hypertension Invasive ductal carcinoma of breast [facility] (current) use of insulin Rheumatoid arthritis T2DM (type 2 diabetes mellitus) Vitamin D deficiency Surgical History H/O parotidectomy History of cholecystectomy Status post left breast lumpectomy Status post right breast lumpectomy Family History Family History Daughter No problems noted. Father No problems noted. Mother No problems noted. Social History Social History Alcohol intake: never Patient Tobacco Use Status: Never used Tobacco Use of substances other than those prescribed or required for medical reasons: No Advance Directives: Yes Advance Directives Information Provided: No Advance Directives on File: No Current occupational status: unemployed Current occupation: right handed Physical Exam Vital Signs: Vital Signs: Last Vital Signs Temp 97.8 F 09/13/20 15:32 Pulse 80 09/13/20 15:32 Resp 16 09/13/20 15:32 BP 143/53 H 09/13/20 15:32 Pulse Ox 99 09/13/20 15:32 Body Mass Index 30.8 vital signs have been reviewed as normal and appeared to be correct. Blood pressure hypertensive at 152/71. Heart rate tachycardic at 101. Respiration rate normal. Temperature normal. Oxygen saturation normal. Appearance: Alert. Oriented X3. No acute distress. Head: Normal external exam. Normocephalic. Atraumatic. Eyes: PERRLA. EOMI. Conjunctiva and sclera normal. Eyelids normal. ENT: Pharynx normal. Uvula midline. Moist mucous membranes. Neck: Normal inspection. Neck supple. FROM. No adenopathy. Thyroid Normal. No meningeal signs. No neck mass noted. CVS: Normal heart rate and rhythm. Heart sound normal. No murmurs noted. Pulses normal throughout. Respiratory: No respiratory distress. Painless inspiration. Breath sounds normal. No wheezes/rales/rhonchi noted. Chest nontender. No accessory muscle usage noted or decreased air movement noted. Abdomen: Soft and nontender. Bowel sounds normal in all 4 quadrants. No distention noted. No organomegaly noted. No visible injury noted. Back: No CVA tenderness. Full range of motion noted. Nontender. Skin: Skin warm and dry. Normal skin color. Normal skin turgor. No rashes/lesions/lacerations noted. Extremities: No lower extremity edema. No calf tenderness is noted. exhibit normal range of motion. Extremities nontender. Neuro: Oriented X 3. No motor deficit. No sensory deficit. Reflexes normal. Psych: Appearance grossly normal, well-kept, mental status normal, speech and movement normal, speech clear, patient appears very sad and anxious along with depressed. Is cooperative. Normal thought process. Normal thought content. Normal good insight. Judgment good. Course Course Course Narrative: 9am - 69-year-old female presenting to the ED with her daughter at bedside because the daughter feels like her mother has become more withdrawn and is not wanting to go to her day program Monday to Monday that she used to be very excited about and she is not eating and drinking like she normally would unless her daughter puts the food in front of her and tells her to eat. She reports that she is med compliant. She recently had an increased dose of olanzapine from 10 mg at bedtime to 15 mg at bedtime although daughter does not see any improvement. The patient denies any of this reports that she is going to the program and is not having any trouble eating. The daughter is just concerned and would like her to be seen psychiatrically an inpatient for psychiatric. Plan: Labs, CXR, EKG, CT scan of brain without contrast, UA then re-evaluate. Reevaluation(s) Reevaluation #1: - WBC at 13,000. Carbon dioxide 20. Random glucose 147. ALT 35. Total protein 8.2. Otherwise all other labs are within normal limits. UA revealed 3+ leukocytes and 30-40 white blood cells although patient has +3 epithelial cells and urine bacteria will start the patient on Ceftin for UTI and then patient's urine culture will have to be followed up on. Otherwise all other labs are within normal limits. - CT scan of brain revealed chronic changes no acute processes were noted. - CXR WNL. - EKG revealed NORMAL SINUS RHYTHM WITH A VENTRICULAR RATE OF 96 WITH VOLTAGE CRITERIA FOR LEFT VENTRICULAR HYPERTROPHY WITH NONSPECIFIC ST DEPRESSIONS AND Q-WAVES NO ACUTE ISCHEMIC CHANGE ARE NOTED AND SIMILAR WHEN COMPARED TO PRIOR EKG ON 05/25/2018. - therefore patient is medically cleared at this time and place and physician observation because the patient needs more time to be evaluated by crisis to evaluate the need for inpatient psychiatric rehabilitation. At this time patient remains neuro intact no focal neuro deficits are noted. Lungs clear to auscultation. CV RRR. Abdomen is soft and nontender. Will continue to monitor patient is evaluated by crisis. Time: 10:30 [facility] - Psych Medical Records Attestation: I reviewed the patient's medical records. Lab Data Attestation: I reviewed the patient's lab results. Result diagrams: 09/13/20 10:08 09/13/20 10:08 Labs: Lab Results 09/13/20 09/13/20 09/13/20 Range/Units 10:08 10:08 10:08 WBC 13.1 H (4.8-10.8) X10*3/uL RBC 4.75 (4.20-5.50) X10*6/uL Hgb 14.7 (12.0-16.0) g/dl Hct 44.4 (37-47) % MCV 93.5 (80-98) fL MCH 30.9 (27.0-33.0) pg MCHC 33.1 (31.0-35.0) g/dl RDW 13.3 (11.0-16.0) % Plt Count 202 (160-400) X10*3/uL MPV 10.1 (9.4-12.3) fL Immature Gran % (Auto) 0.4 (0.0-0.4) % Neut % (Auto) 81.2 H (45-73) % Lymph % (Auto) 12.5 L (20-40) % Richardson % (Auto) 5.6 (2-11) % Eos % (Auto) 0.1 (0-4) % Baso % (Auto) 0.2 (0-2) % Lymph # (Auto) 1.6 (1.2-4.9) X10*3/uL Richardson # (Auto) 0.7 (0.1-1.2) X10*3/uL Eos # (Auto) 0.0 (0.0-0.4) X10*3/uL Baso # (Auto) 0.0 (0.0-0.2) X10*3/uL Abs Immat Gran (auto) 0.05 H (0.00-0.03) X10*3/uL Absolute Neuts (auto) 10.7 H (2.0-8.3) X10*3/uL Absolute Nucleated RBC 0.000 (0.0-0.012) X10*3/uL Nucleated RBC % (auto) 0.0 (0.0-0.2) /100WBC Hold Purple Top SEE NOTE Sodium 138 (135-145) mmol/L Potassium 5.0 (3.3-5.1) mmol/L Chloride 107 (96-108) mmol/L Carbon Dioxide 20 L (22-29) mmol/L Anion Gap 16 (12-20) BUN 13 (9-16) mg/dL Creatinine 0.94 (0.5-1.4) mg/dL Estim Creat Clear Calc 46.4 Estimated GFR 59 Random Glucose 147 H (60-115) mg/dL Lactic Acid (0.5-2.0) mmol/L Calcium 9.4 (8.4-10.2) mg/dL Magnesium 2.2 (1.6-2.6) mg/dL Total Bilirubin 0.3 (0.0-1.0) mg/dL AST 25 (5-31) U/L ALT 35 H (0-31) U/L Alkaline Phosphatase 94 (39-117) U/L B-Natriuretic Peptide (<100) pg/mL Total Protein 8.2 H (6.5-8.0) g/dL Albumin 4.0 (3.5-5.0) g/dL Urine Color Urine Appearance Urine pH (5.0-8.0) Ur Specific Hamilton (1.005-1.025) Urine Protein (NEG-TRACE) MG/DL Urine Glucose (UA) (NEG) MG/DL Urine Ketones (NEG) MG/DL Urine Blood (NEG) Urine Nitrite (NEG) Ur Leukocyte Esterase (NEG) Urine RBC (0) /HPF Urine WBC (0-4) /HPF Ur Squamous Epith Cells /LPF Urine Bacteria /LPF Coronavirus (PCR) (Negative) Influenza Type A (PCR) (Negative) Influenza Type B (PCR) (Negative) RSV RNA Qual (PCR) (Negative) 09/13/20 09/13/20 09/13/20 Range/Units 10:09 10:09 10:51 WBC (4.8-10.8) X10*3/uL RBC (4.20-5.50) X10*6/uL Hgb (12.0-16.0) g/dl Hct (37-47) % MCV (80-98) fL MCH (27.0-33.0) pg MCHC (31.0-35.0) g/dl RDW (11.0-16.0) % Plt Count (160-400) X10*3/uL MPV (9.4-12.3) fL Immature Gran % (Auto) (0.0-0.4) % Neut % (Auto) (45-73) % Lymph % (Auto) (20-40) % Richardson % (Auto) (2-11) % Eos % (Auto) (0-4) % Baso % (Auto) (0-2) % Lymph # (Auto) (1.2-4.9) X10*3/uL Richardson # (Auto) (0.1-1.2) X10*3/uL Eos # (Auto) (0.0-0.4) X10*3/uL Baso # (Auto) (0.0-0.2) X10*3/uL Abs Immat Gran (auto) (0.00-0.03) X10*3/uL Absolute Neuts (auto) (2.0-8.3) X10*3/uL Absolute Nucleated RBC (0.0-0.012) X10*3/uL Nucleated RBC % (auto) (0.0-0.2) /100WBC Hold Purple Top Sodium (135-145) mmol/L Potassium (3.3-5.1) mmol/L Chloride (96-108) mmol/L Carbon Dioxide (22-29) mmol/L Anion Gap (12-20) BUN (9-16) mg/dL Creatinine (0.5-1.4) mg/dL Estim Creat Clear Calc Estimated GFR Random Glucose (60-115) mg/dL Lactic Acid 1.4 (0.5-2.0) mmol/L Calcium (8.4-10.2) mg/dL Magnesium (1.6-2.6) mg/dL Total Bilirubin (0.0-1.0) mg/dL AST (5-31) U/L ALT (0-31) U/L Alkaline Phosphatase (39-117) U/L B-Natriuretic Peptide < 10 (<100) pg/mL Total Protein (6.5-8.0) g/dL Albumin (3.5-5.0) g/dL Urine Color Urine Appearance Urine pH (5.0-8.0) Ur Specific Hamilton (1.005-1.025) Urine Protein (NEG-TRACE) MG/DL Urine Glucose (UA) (NEG) MG/DL Urine Ketones (NEG) MG/DL Urine Blood (NEG) Urine Nitrite (NEG) Ur Leukocyte Esterase (NEG) Urine RBC (0) /HPF Urine WBC (0-4) /HPF Ur Squamous Epith Cells /LPF Urine Bacteria /LPF Coronavirus (PCR) NEGATIVE (Negative) Influenza Type A (PCR) NEGATIVE (Negative) Influenza Type B (PCR) NEGATIVE (Negative) RSV RNA Qual (PCR) NEGATIVE (Negative) 09/13/20 Range/Units 11:50 WBC (4.8-10.8) X10*3/uL RBC (4.20-5.50) X10*6/uL Hgb (12.0-16.0) g/dl Hct (37-47) % MCV (80-98) fL MCH (27.0-33.0) pg MCHC (31.0-35.0) g/dl RDW (11.0-16.0) % Plt Count (160-400) X10*3/uL MPV (9.4-12.3) fL Immature Gran % (Auto) (0.0-0.4) % Neut % (Auto) (45-73) % Lymph % (Auto) (20-40) % Richardson % (Auto) (2-11) % Eos % (Auto) (0-4) % Baso % (Auto) (0-2) % Lymph # (Auto) (1.2-4.9) X10*3/uL Richardson # (Auto) (0.1-1.2) X10*3/uL Eos # (Auto) (0.0-0.4) X10*3/uL Baso # (Auto) (0.0-0.2) X10*3/uL Abs Immat Gran (auto) (0.00-0.03) X10*3/uL Absolute Neuts (auto) (2.0-8.3) X10*3/uL Absolute Nucleated RBC (0.0-0.012) X10*3/uL Nucleated RBC % (auto) (0.0-0.2) /100WBC Hold Purple Top Sodium (135-145) mmol/L Potassium (3.3-5.1) mmol/L Chloride (96-108) mmol/L Carbon Dioxide (22-29) mmol/L Anion Gap (12-20) BUN (9-16) mg/dL Creatinine (0.5-1.4) mg/dL Estim Creat Clear Calc Estimated GFR Random Glucose (60-115) mg/dL Lactic Acid (0.5-2.0) mmol/L Calcium (8.4-10.2) mg/dL Magnesium (1.6-2.6) mg/dL Total Bilirubin (0.0-1.0) mg/dL AST (5-31) U/L ALT (0-31) U/L Alkaline Phosphatase (39-117) U/L B-Natriuretic Peptide (<100) pg/mL Total Protein (6.5-8.0) g/dL Albumin (3.5-5.0) g/dL Urine Color STRAW Urine Appearance HAZY Urine pH 6.0 (5.0-8.0) Ur Specific Hamilton <= 1.005 (1.005-1.025) Urine Protein NEG (NEG-TRACE) MG/DL Urine Glucose (UA) NEG (NEG) MG/DL Urine Ketones NEG (NEG) MG/DL Urine Blood TRACE (NEG) Urine Nitrite NEG (NEG) Ur Leukocyte Esterase 3+ H (NEG) Urine RBC 0-2 (0) /HPF Urine WBC 30-49 H (0-4) /HPF Ur Squamous Epith Cells 3+ /LPF Urine Bacteria 1+ /LPF Coronavirus (PCR) (Negative) Influenza Type A (PCR) (Negative) Influenza Type B (PCR) (Negative) RSV RNA Qual (PCR) (Negative) Imaging Data Chest x-ray: Attestation: I personally reviewed and interpreted this imaging study as follows: Radiologist's impression: FINDINGS: The lungs are well expanded. No focal infiltrate, effusion, edema, or pneumothorax. Cardiac and mediastinal silhouettes are within normal limits for size with vascular calcification in aorta. Degenerative changes in the spine and shoulders. No acute bony abnormality seen. XR/XR chest 1V IMPRESSION: No evidence of acute disease. CT scan - head: Attestation: I personally reviewed and interpreted this imaging study as follows: Radiologist's impression: FINDINGS: There is no evidence of acute intracranial hemorrhage or territorial infarction.? No abnormal mass effect or midline shift is appreciated. Valladares-white differentiation is well preserved.? No extra-axial fluid collections. The ventricular system and cortical sulci are prominent, consistent with volume loss.? There are areas of low density in the periventricular and subcortical white matter, most consistent with sequelae of microvascular ischemic change.? The osseous structures and soft tissues are normal.? There are calcifications of the cavernous internal carotid arteries.? The visualized paranasal sinuses and mastoid air cells are well aerated.? CT/CT head/brain wo con IMPRESSION: Chronic microvascular ischemic changes with no CT evidence of acute intracranial abnormality. ECG Data Attestation: I personally reviewed and interpreted this ECG as follows: ECG interpretation date: 09/13/20 ECG interpretation time: 09:36 Interpretation: EKG normal sinus rhythm and circulated 96 with low voltage criteria for LVH with nonspecific ST abnormalities and Q-waves no acute ischemic change are noted. Similar when compared to prior EKG 05/25/2018. Discharge Plan Discharge Clinical Impression: UTI (urinary tract infection), Behavioral change Prescriptions: No Action mirtazapine 30 mg Tablet 30 mg PO DAILY RF: 0 mjirnypxvj-seeznuvrgrpqz-eetw [Fioricet] 50-300-40 mg capsule 1 cap PO Q8H PRN (Reason: pain) Qty: 10 RF: 0 clonazepam [Klonopin] 0.5 mg tablet 0.5 mg PO DAILY RF: 0 albuterol sulfate [ProAir HFA] 90 mcg/actuation HFA aerosol inhaler 2 puff inhalation Q4-6H PRN (Reason: Dyspnea) RF: 0 amlodipine 5 mg tablet 5 mg PO DAILY RF: 0 cholecalciferol (vitamin D3) 25 mcg (1,000 unit) capsule 25 mcg PO DAILY RF: 0 metoprolol tartrate 50 mg tablet 50 mg PO BID RF: 0 folic acid 1 mg tablet 1 mg PO DAILY RF: 0 gabapentin 100 mg capsule 100 mg PO BID RF: 0 (DME) SINCERE, M77.10 See Rx Instructions .Route .MEDSUPPLY Qty: 1 RF: 0 duloxetine 60 mg capsule,delayed release(DR/EC) 60 mg PO DAILY RF: 0 olanzapine 10 mg tablet 15 mg PO BEDTIME RF: 0 (DME) blood sugar diagnostic Strip See Rx Instructions strip Not Applicable BID Qty: 10 RF: 0 (DME) pen needle, diabetic 31 gauge x 3/16 needle See Rx Instructions ea .ROUTE .MEDSUPPLY Qty: 50 RF: 0 cyanocobalamin (vitamin B-12) 1,000 mcg tablet 1,000 mcg PO QAM RF: 0 atorvastatin 40 mg tablet 40 mg PO DAILY 30 Days Qty: 30 RF: 4 Lantus Solostar U-100 Insulin 100 unit/mL (3 mL) insulin pen 10 unit subcut QPM 30 Days Qty: 15 RF: 3 losartan 25 mg tablet 25 mg PO DAILY 30 Days Qty: 30 RF: 4 Ozempic 0.25 mg or 0.5 mg(2 mg/1.5 mL) pen injector 0.5 mg subcut QWEEK Qty: 1.5 RF: 4
[2020-09-13 12:22] LABS: Bacteria Urine 1+ /LPF; RBC Urine 0-2 /HPF (0); Squamous Epithelial Cell Urine 3+ /LPF; WBC Urine 30-49 /HPF (0-4)
--- NOTE | 2020-09-13 12:56 | PC.NURSE ---
pt frequently requesting water and food, given snacks and sandwich. tolerating po w/o issue. pt not showing signs of being socially withdrawn w this rn. able to make needs known and conversational w this rn when in room.
[2020-09-13] MEDS: clonazePAM 0.5 MG TABLET PO (13:55)
--- NOTE | 2020-09-13 13:57 | PC.NURSE ---
pt med rec completed, given medications that pt sts were not taken earlier. pt daughter updated on plan of care. pt ambulatory in room w steady gait, able to make needs known. no evident psychiatric s/s. pt sts at home she has had an increase in anxiety.
--- NOTE | 2020-09-13 14:34 | PC.NURSE ---
[facility] referral sent att.
[2020-09-13 15:32] VITALS: BP 143/53; PULSE 80; RESP 16; TEMP 36.6; O2SAT 99
[2020-09-13] MEDS: Butalb/Acetamin/Caff 50/325/40 TABLET 1 TAB PO (16:37)
--- NOTE | 2020-09-13 17:43 | PC.NURSE ---
guichon at bedside for eval w interpretter
--- NOTE | 2020-09-13 18:27 | PC.NURSE ---
pt ate all of dinner
[2020-09-13 18:47] VITALS: BP 142/58; PULSE 79; RESP 15; TEMP 37.2; O2SAT 99
== END 2020-09-13 19:45 | disposition home or self-care (01) ==
PROVIDERS: Physician Assistant Medical; Emergency Provider Emergency Medicine Emergency Medical Services
DX: N39.0 Urinary tract infection, site not specified (principal); F68.8 Other specified disorders of adult personality and behavior; E11.9 Type 2 diabetes mellitus without complications; I10 Essential (primary) hypertension; E78.5 Hyperlipidemia, unspecified; Z79.4 Long term (current) use of insulin; Z79.899 Other long term (current) drug therapy; Z79.02 Long term (current) use of antithrombotics/antiplatelets
CPT/HCPCS: 0241U; 36415; 70450; 71045; 80053; 81001; 81003; 83605; 83735; 83880; 85025; 87040; 87086; 93005; 96372; 99285

== ENCOUNTER 2020-09-15 12:45 | Outpatient (REF) | payer MEDICARE, SELFPAY ==
--- NOTE | 2020-09-15 12:52 | ECG_ITS ---
Test Reason : R00.0 Blood Pressure : / mmHG Vent. Rate : 107 BPM Atrial Rate : 107 BPM P-R Int : 114 ms QRS Dur : 070 ms QT Int : 316 ms P-R-T Axes : 058 -04 014 degrees QTc Int : 421 ms Sinus tachycardia Voltage criteria for left ventricular hypertrophy Inferior infarct (cited on or before 13-SEP-2020) Abnormal ECG When compared with ECG of 13-SEP-2020 09:36, No significant change was found Referred By: Crystal Rosario Electronically Signed By:LEONORA ROJAS MD
[2020-09-15 14:24] LABS: Thyroid Stimulating Hormone 1.22 uIU/mL (0.32-4.0)
== END 2020-09-15 12:46 | disposition home or self-care (01) ==
LOC: HO.LAB 12:45
PROVIDERS: PCP Family Medicine; Visit Provider Family Medicine
DX: R00.0 Tachycardia, unspecified (principal)
CPT/HCPCS: 36415; 84443; 93005

== ENCOUNTER 2020-09-17 07:10 | Emergency (ER) | payer MEDICARE, SELFPAY ==
[2020-09-17 07:30] VITALS: BP 150/82; PULSE 140; RESP 18; TEMP 36.3; O2SAT 96; BMI 32.8
--- NOTE | 2020-09-17 08:05 | ECG_ITS ---
Test Reason : MEDICAL CLEARANCE Blood Pressure : / mmHG Vent. Rate : 111 BPM Atrial Rate : 111 BPM P-R Int : 122 ms QRS Dur : 066 ms QT Int : 310 ms P-R-T Axes : 073 015 030 degrees QTc Int : 421 ms Sinus tachycardia Otherwise normal ECG When compared with ECG of 15-SEP-2020 13:11, Criteria for Inferior infarct are no longer Present Referred By: Chery Kinney Electronically Signed By:LEONORA ROJAS MD
[2020-09-17] MEDS: LORazepam 1 MG TABLET PO (08:21)
--- NOTE | 2020-09-17 08:55 | ED.PSYCH ---
HPI - Psych General Chief Complaint: Psychiatric Symptoms Stated Complaint: crisis Time Seen by Provider: 09/17/20 08:04 Source: patient Mode of arrival: ambulatory Limitations: no limitations History of Present Illness HPI Narrative: 69 y/o female with history of DM2 on insulin, ALICE, obesity, HTN. HLD, breast cancer, recently diagnosed UTI currently on antibiotics presents to the ER with anxiety and auditory hallucinations that are telling her to kill herself. She was seen here on 09/13 for withdrawn behavior and depression, had full metabolic work up, CT head and seen by N. She was discharged with PO abx and outpatient services. Patient reports increased anxiety and hearing voices. They are telling her to hurt herself and kill herself but she does not want to do those things. She has been taking all of her medications as prescribed. She reports her UTI symptoms are better. MD complaint: suicidal ideation, feels depressed and hallucinations Onset (ago): day(s) Duration: constant History of same: No Relieving factors: none Exacerbating factors: none Associated psychiatric symptoms: depression, racing thoughts and auditory hallucinations Associated symptoms: denies other symptoms Treatments prior to arrival: none If self harm: admits thoughts of self harm Related Data Home Medications Medication Instructions Recorded Confirmed albuterol sulfate 1 amp INHALATION TID PRN 09/17/20 09/17/20 amlodipine 5 mg tablet 5 mg PO DAILY@1800 09/17/20 09/17/20 atorvastatin 40 mg tablet (Lipitor) 40 mg PO BEDTIME 09/17/20 09/17/20 calcium carbonate 500 mg calcium 1 tab PO BID 09/17/20 09/17/20 (1,250 mg) tablet (Oyster Shell Calcium 500) cefuroxime axetil 500 mg tablet 500 mg PO BID 09/17/20 09/17/20 cholecalciferol (vitamin D3) 25 25 mcg PO DAILY@1800 09/17/20 09/17/20 mcg (1,000 unit) tablet clonazepam 0.5 mg tablet 0.5 mg PO BID PRN 09/17/20 09/17/20 cyanocobalamin (vitamin B-12) 1,000 mcg PO DAILY 09/17/20 09/17/20 1,000 mcg tablet duloxetine 60 mg capsule,delayed 60 mg PO DAILY 09/17/20 09/17/20 release folic acid 1 mg tablet 1 mg PO DAILY 09/17/20 09/17/20 glipizide 5 mg tablet 5 mg PO BID@0900,1800 09/17/20 09/17/20 insulin glargine 100 unit/mL (3 10 unit SUBCUT DAILY 09/17/20 09/17/20 mL) subcutaneous pen (Lantus Solostar U-100 Insulin) losartan 25 mg tablet 25 mg PO DAILY 09/17/20 09/17/20 metoprolol tartrate 50 mg tablet 50 mg PO BID@0900,1800 09/17/20 09/17/20 mirtazapine 30 mg tablet 15 - 30 mg PO BEDTIME 09/17/20 09/17/20 olanzapine 15 mg tablet 15 mg PO BEDTIME 09/17/20 09/17/20 omeprazole 20 mg tablet,delayed 20 mg PO BID 09/17/20 09/17/20 release semaglutide (Ozempic) 0.5 mg SUBCUT QWEEK 09/17/20 09/17/20 Allergies Allergy/AdvReac Type Severity Reaction Status Date / Time codeine [Codeine] Allergy Mild UPSET Verified 08/03/20 11:29 STOMACH, visual impairment DEQUAN Inhibitors AdvReac Intermediate COUGH Verified 08/03/20 11:29 [DEQUAN INHIBITORS] hydrochlorothiazide AdvReac Intermediate HYPONATREMI Verified 08/03/20 11:29 [HYDROCHLOROTHIAZIDE] A Review of Systems Constitutional: Constitutional: Denies chills, Denies fatigue, Denies fever(s), Denies headache(s) and Denies weakness Eyes: Eyes: Reports no additional eye complaints ENT: Denies headache(s), Denies nasal congestion and Denies sore throat Cardiovascular: Cardiovascular: Denies chest pain, Reports rapid heart rate and Denies dyspnea Respiratory: Respiratory: Denies cough and Denies dyspnea Gastrointestinal: Gastrointestinal: Denies abdominal pain, Denies diarrhea, Denies nausea and Denies vomiting Genitourinary: Genitourinary: Denies hematuria and Denies dysuria Musculoskeletal: Musculoskeletal: Denies back pain and Denies myalgias Integumentary/Breasts: Skin/Breast: Denies rash Neurologic: Reports confusion, Denies headache(s) and Denies weakness Psychiatric: Psychiatric: Reports anxiety, Reports change in appetite, Reports confusion, Reports hopelessness, Reports anhedonia, Reports paranoia and Reports suicidal ideation Endocrine: Endocrine: Denies fatigue PMFSH Past Medical History Attestation statement: The following information was validated with the patient. Medical History Barretts esophagus Bipolar disorder Diabetes Diabetes type 2, uncontrolled Hepatitis C HLD (hyperlipidemia) HTN (hypertension) Hypertension Invasive ductal carcinoma of breast correction (current) use of insulin Rheumatoid arthritis T2DM (type 2 diabetes mellitus) Vitamin D deficiency Surgical History H/O parotidectomy History of cholecystectomy Status post left breast lumpectomy Status post right breast lumpectomy Family History Family History Daughter No problems noted. Father No problems noted. Mother No problems noted. Social History Social History Alcohol intake: never Patient Tobacco Use Status: Never used Tobacco Use of substances other than those prescribed or required for medical reasons: No Advance Directives: No Advance Directives Information Provided: Yes Current occupational status: unemployed Current occupation: right handed Physical Exam Vital Signs: Vital Signs: Last Vital Signs Temp 97 F 09/17/20 16:05 Pulse 90 09/17/20 16:05 Resp 18 09/17/20 16:05 BP 124/50 L 09/17/20 16:05 Pulse Ox 98 09/17/20 16:05 Body Mass Index 32.8 Appearance: Alert. Oriented X3. No acute distress. Eyes: Pupils equal, round and reactive to light. ENT: Pharynx normal. Neck: Normal inspection. Neck supple. CVS: Tachycardic, regular rhythm. Pulses normal. Respiratory: No respiratory distress. Breath sounds normal. Abdomen: Obese, Soft and nontender. +BS x4 Skin: Skin warm and dry. Normal skin color. Normal skin turgor. No rashes. Extremities: No lower extremity edema. Neuro: Oriented X 3. No motor deficit. No sensory deficit. Psych: anxious & nervous, +AH, not suicidal, poor insight and judgement. Const: General: confusion Orientation/consciousness: confusion Neuro: General: confusion Course Course Course Narrative: 69 y/o female presenting with auditory hallucinations, anxiety and depression. Voices are telling her to kill herself. Will need to speak with family to see if there is a history of the same but it does not appear to be that way. She is tachycardic and anxious on arrival. EKG with sinus tach and HR improved with some ativan. She is on Klonopin for anxiety at baseline. Will check labs and UA. Will need to be re-evaluated by [facility] for worsening psychiatric symptoms. Reevaluation(s) Reevaluation #1: Labs show improving leukocytosis, UA with some residual LE and WBC but overall improving (also with 2+ squamous cells suggesting contamination). Utox + barbituates. At this time she is medically cleared and referral will be made to [facility]. Physician observation started at 11:11am. Patient placed in physician observation because patient is awaiting [facility] evaluation for the possible need of inpatient psych admission. At the time observation was started patient's vital signs were stable. Patient is alert and oriented. Neuro exam is non-focal. CV: RRR and lungs are clear. Will continue to monitor. Reevaluation #2: Patient seen by N. AH x1 and no longer having them and she is not suicidal. Deemed not to require inpatient psychiatric care. Daughter is not willing to take her back home and says she cannot care for her. Will plan for PT consult and Case Management consult. Physician observation continued. Patient AAO x3, eating and drinking normally. No hallucinations. Consultations Consultation #1: N Consultation #2: PT/CM MDM - Psych Differential Diagnosis Differential diagnosis: Likely acute psychosis, bipolar disorder, depression, drug-induced psychotic disorder, acute anxiety, post-traumatic stress disorder, substance abuse, mood disorder and schizoaffective disorder Lab Data Result diagrams: 09/17/20 09:01 09/17/20 09:01 Labs: Lab Results 09/17/20 09/17/20 09/17/20 Range/Units 08:53 09:01 09:01 WBC 11.1 H (4.8-10.8) X10*3/uL RBC 4.31 (4.20-5.50) X10*6/uL Hgb 13.5 (12.0-16.0) g/dl Hct 40.6 (37-47) % MCV 94.2 (80-98) fL MCH 31.3 (27.0-33.0) pg MCHC 33.3 (31.0-35.0) g/dl RDW 13.6 (11.0-16.0) % Plt Count 207 (160-400) X10*3/uL MPV 9.8 (9.4-12.3) fL Immature Gran % (Auto) 0.3 (0.0-0.4) % Neut % (Auto) 85.2 H (45-73) % Lymph % (Auto) 8.6 L (20-40) % [place] % (Auto) 5.5 (2-11) % Eos % (Auto) 0.1 (0-4) % Baso % (Auto) 0.3 (0-2) % Lymph # (Auto) 1.0 L (1.2-4.9) X10*3/uL [place] # (Auto) 0.6 (0.1-1.2) X10*3/uL Eos # (Auto) 0.0 (0.0-0.4) X10*3/uL Baso # (Auto) 0.0 (0.0-0.2) X10*3/uL Abs Immat Gran (auto) 0.03 (0.00-0.03) X10*3/uL Absolute Neuts (auto) 9.5 H (2.0-8.3) X10*3/uL Absolute Nucleated RBC 0.000 (0.0-0.012) X10*3/uL Nucleated RBC % (auto) 0.0 (0.0-0.2) /100WBC Sodium 137 (135-145) mmol/L Potassium 5.1 (3.3-5.1) mmol/L Chloride 106 (96-108) mmol/L Carbon Dioxide 22 (22-29) mmol/L Anion Gap 14 (12-20) BUN 19 H (9-16) mg/dL Creatinine 1.15 (0.5-1.4) mg/dL Estim Creat Clear Calc 35.9 Estimated GFR 47 Random Glucose 164 H (60-115) mg/dL Calcium 9.1 (8.4-10.2) mg/dL Magnesium 2.3 (1.6-2.6) mg/dL Total Bilirubin 0.3 (0.0-1.0) mg/dL Direct Bilirubin < 0.2 (0.0-0.5) mg/dL AST 25 (5-31) U/L ALT 37 H (0-31) U/L Alkaline Phosphatase 92 (39-117) U/L Total Protein 8.0 (6.5-8.0) g/dL Albumin 4.0 (3.5-5.0) g/dL Urine Color Urine Appearance Urine pH (5.0-8.0) Ur Specific [place] (1.005-1.025) Urine Protein (NEG-TRACE) MG/DL Urine Glucose (UA) (NEG) MG/DL Urine Ketones (NEG) MG/DL Urine Blood (NEG) Urine Nitrite (NEG) Ur Leukocyte Esterase (NEG) Urine RBC (0) /HPF Urine WBC (0-4) /HPF Ur Squamous Epith Cells /LPF Urine Bacteria /LPF Urine Opiates Screen (Not Detect) Urine Fentanyl Screen (Not Detect) Ur Barbiturates Screen (Not Detect) Ur Phencyclidine Scrn (Not Detect) Ur Amphetamines Screen (Not Detect) U Benzodiazepines Scrn (Not Detect) Urine Cocaine Screen (Not Detect) U Marijuana (THC) Screen (Not Detect) Ethyl Alcohol mg/dL Coronavirus (PCR) NEGATIVE (Negative) Influenza Type A (PCR) NEGATIVE (Negative) Influenza Type B (PCR) NEGATIVE (Negative) RSV RNA Qual (PCR) NEGATIVE (Negative) 09/17/20 09/17/20 09/17/20 Range/Units 09:03 09:03 10:14 WBC (4.8-10.8) X10*3/uL RBC (4.20-5.50) X10*6/uL Hgb (12.0-16.0) g/dl Hct (37-47) % MCV (80-98) fL MCH (27.0-33.0) pg MCHC (31.0-35.0) g/dl RDW (11.0-16.0) % Plt Count (160-400) X10*3/uL MPV (9.4-12.3) fL Immature Gran % (Auto) (0.0-0.4) % Neut % (Auto) (45-73) % Lymph % (Auto) (20-40) % [place] % (Auto) (2-11) % Eos % (Auto) (0-4) % Baso % (Auto) (0-2) % Lymph # (Auto) (1.2-4.9) X10*3/uL [place] # (Auto) (0.1-1.2) X10*3/uL Eos # (Auto) (0.0-0.4) X10*3/uL Baso # (Auto) (0.0-0.2) X10*3/uL Abs Immat Gran (auto) (0.00-0.03) X10*3/uL Absolute Neuts (auto) (2.0-8.3) X10*3/uL Absolute Nucleated RBC (0.0-0.012) X10*3/uL Nucleated RBC % (auto) (0.0-0.2) /100WBC Sodium Cancelled (135-145) mmol/L Potassium Cancelled (3.3-5.1) mmol/L Chloride Cancelled (96-108) mmol/L Carbon Dioxide Cancelled (22-29) mmol/L Anion Gap Cancelled (12-20) BUN Cancelled (9-16) mg/dL Creatinine Cancelled (0.5-1.4) mg/dL Estim Creat Clear Calc Cancelled Estimated GFR Cancelled Random Glucose Cancelled (60-115) mg/dL Calcium Cancelled (8.4-10.2) mg/dL Magnesium (1.6-2.6) mg/dL Total Bilirubin (0.0-1.0) mg/dL Direct Bilirubin (0.0-0.5) mg/dL AST (5-31) U/L ALT (0-31) U/L Alkaline Phosphatase (39-117) U/L Total Protein (6.5-8.0) g/dL Albumin (3.5-5.0) g/dL Urine Color Urine Appearance Urine pH (5.0-8.0) Ur Specific [place] (1.005-1.025) Urine Protein (NEG-TRACE) MG/DL Urine Glucose (UA) (NEG) MG/DL Urine Ketones (NEG) MG/DL Urine Blood (NEG) Urine Nitrite (NEG) Ur Leukocyte Esterase (NEG) Urine RBC (0) /HPF Urine WBC (0-4) /HPF Ur Squamous Epith Cells /LPF Urine Bacteria /LPF Urine Opiates Screen Not Detected (Not Detect) Urine Fentanyl Screen Not Detected (Not Detect) Ur Barbiturates Screen POSITIVE H (Not Detect) Ur Phencyclidine Scrn Not Detected (Not Detect) Ur Amphetamines Screen Not Detected (Not Detect) U Benzodiazepines Scrn Not Detected (Not Detect) Urine Cocaine Screen Not Detected (Not Detect) U Marijuana (THC) Screen Not Detected (Not Detect) Ethyl Alcohol < 10 mg/dL Coronavirus (PCR) (Negative) Influenza Type A (PCR) (Negative) Influenza Type B (PCR) (Negative) RSV RNA Qual (PCR) (Negative) 09/17/20 Range/Units 10:14 WBC (4.8-10.8) X10*3/uL RBC (4.20-5.50) X10*6/uL Hgb (12.0-16.0) g/dl Hct (37-47) % MCV (80-98) fL MCH (27.0-33.0) pg MCHC (31.0-35.0) g/dl RDW (11.0-16.0) % Plt Count (160-400) X10*3/uL MPV (9.4-12.3) fL Immature Gran % (Auto) (0.0-0.4) % Neut % (Auto) (45-73) % Lymph % (Auto) (20-40) % [place] % (Auto) (2-11) % Eos % (Auto) (0-4) % Baso % (Auto) (0-2) % Lymph # (Auto) (1.2-4.9) X10*3/uL [place] # (Auto) (0.1-1.2) X10*3/uL Eos # (Auto) (0.0-0.4) X10*3/uL Baso # (Auto) (0.0-0.2) X10*3/uL Abs Immat Gran (auto) (0.00-0.03) X10*3/uL Absolute Neuts (auto) (2.0-8.3) X10*3/uL Absolute Nucleated RBC (0.0-0.012) X10*3/uL Nucleated RBC % (auto) (0.0-0.2) /100WBC Sodium (135-145) mmol/L Potassium (3.3-5.1) mmol/L Chloride (96-108) mmol/L Carbon Dioxide (22-29) mmol/L Anion Gap (12-20) BUN (9-16) mg/dL Creatinine (0.5-1.4) mg/dL Estim Creat Clear Calc Estimated GFR Random Glucose (60-115) mg/dL Calcium (8.4-10.2) mg/dL Magnesium (1.6-2.6) mg/dL Total Bilirubin (0.0-1.0) mg/dL Direct Bilirubin (0.0-0.5) mg/dL AST (5-31) U/L ALT (0-31) U/L Alkaline Phosphatase (39-117) U/L Total Protein (6.5-8.0) g/dL Albumin (3.5-5.0) g/dL Urine Color YELLOW Urine Appearance HAZY Urine pH 6.0 (5.0-8.0) Ur Specific [place] 1.010 (1.005-1.025) Urine Protein NEG (NEG-TRACE) MG/DL Urine Glucose (UA) NEG (NEG) MG/DL Urine Ketones NEG (NEG) MG/DL Urine Blood NEG (NEG) Urine Nitrite NEG (NEG) Ur Leukocyte Esterase 2+ H (NEG) Urine RBC 0-2 (0) /HPF Urine WBC 5-9 H (0-4) /HPF Ur Squamous Epith Cells 2+ /LPF Urine Bacteria 1+ /LPF Urine Opiates Screen (Not Detect) Urine Fentanyl Screen (Not Detect) Ur Barbiturates Screen (Not Detect) Ur Phencyclidine Scrn (Not Detect) Ur Amphetamines Screen (Not Detect) U Benzodiazepines Scrn (Not Detect) Urine Cocaine Screen (Not Detect) U Marijuana (THC) Screen (Not Detect) Ethyl Alcohol mg/dL Coronavirus (PCR) (Negative) Influenza Type A (PCR) (Negative) Influenza Type B (PCR) (Negative) RSV RNA Qual (PCR) (Negative) ECG Data Attestation: I personally reviewed and interpreted this ECG as follows: ECG interpretation date: 09/17/20 ECG interpretation time: 09:05 Prior ECG tracings: available for review Interpretation: sinus tachycardia, HR 111, normal TX interval 122 ms, no ST segment elevations or depressions Discharge Plan Discharge Clinical Impression: Anxiety, Acute UTI Prescriptions: No Action atorvastatin [Lipitor] 40 mg Tablet 40 mg PO BEDTIME RF: 0 amlodipine 5 mg Tablet 5 mg PO DAILY@1800 RF: 0 mirtazapine 30 mg Tablet 15 - 30 mg PO BEDTIME RF: 0 losartan 25 mg Tablet 25 mg PO DAILY RF: 0 metoprolol tartrate 50 mg Tablet 50 mg PO BID@0900,1800 RF: 0 olanzapine 15 mg Tablet 15 mg PO BEDTIME RF: 0 cefuroxime axetil 500 mg Tablet 500 mg PO BID RF: 0 glipizide 5 mg Tablet 5 mg PO BID@0900,1800 RF: 0 Lantus Solostar U-100 Insulin 100 unit/mL (3 mL) Insulin Pen 10 unit SUBCUT DAILY RF: 0 omeprazole 20 mg Tablet,Delayed Release (Dr/Ec) 20 mg PO BID RF: 0 albuterol sulfate 2.5 mg /3 mL (0.083 %) solution for nebulization 1 amp inhalation TID PRN (Reason: dyspnea) RF: 0 clonazepam 0.5 mg tablet 0.5 mg PO BID PRN (Reason: Anxiety) RF: 0 cyanocobalamin (vitamin B-12) 1,000 mcg tablet 1,000 mcg PO DAILY RF: 0 calcium carbonate [Oyster Shell Calcium 500] 500 mg calcium (1,250 mg) tablet 1 tab PO BID RF: 0 duloxetine 60 mg capsule,delayed release(DR/EC) 60 mg PO DAILY RF: 0 cholecalciferol (vitamin D3) 25 mcg (1,000 unit) tablet 25 mcg PO DAILY@1800 RF: 0 Ozempic 0.25 mg or 0.5 mg(2 mg/1.5 mL) pen injector 0.5 mg subcut QWEEK RF: 0 folic acid 1 mg Tablet 1 mg PO DAILY RF: 0
[2020-09-17 09:07] LABS: MANUAL DIFF FLAG NO
[2020-09-17 09:09] LABS: Basophils Percent Auto 0.3 % (0-2); Eosinophils Percent Auto 0.1 % (0-4); Hematocrit 40.6 % (37-47); Hemoglobin 13.5 g/dl (12.0-16.0); Imm Gran Abs Auto 0.03 X10*3/uL (0.00-0.03); Imm Gran Pct Auto 0.3 % (0.0-0.4); Lymphocytes Percent Auto 8.6 % (20-40); Mean Corpuscular HGB Conc 33.3 g/dl (31.0-35.0); Mean Corpuscular Hemoglobin 31.3 pg (27.0-33.0); Mean Corpuscular Volume 94.2 fL (80-98); Mean Platelet Volume 9.8 fL (9.4-12.3); Monocytes Absolute Auto 0.6 X10*3/uL (0.1-1.2); Monocytes Percent Auto 5.5 % (2-11); Neutrophils Absolute Auto 9.5 X10*3/uL (2.0-8.3); Neutrophils Percent Auto 85.2 % (45-73); Platelet Count 207 X10*3/uL (160-400); Red Blood Count 4.31 X10*6/uL (4.20-5.50); Red Cell Distribution Width 13.6 % (11.0-16.0); White Blood Count 11.1 X10*3/uL (4.8-10.8)
--- NOTE | 2020-09-17 09:18 | PHA.MEDREC ---
Pharmacy Consult ? Medication Reconciliation Pharmacy has completed the medication reconciliation. Patient does not know any of the medications she takes. Called daughter who reported that she sent all medication in with her mother. Verified all pills, patient uses [facility] at [facility]. Semaglutide and Lantus were both recently filled at the pharmacy. Cande Gardner, DannaD
[2020-09-17 09:40] LABS: Ethanol < 10 mg/dL
[2020-09-17 09:41] LABS: Alanine Aminotransferase 37 U/L (0-31); Alkaline Phosphatase 92 U/L (39-117); Anion Gap 14 (12-20); Aspartate Amino Transferase 25 U/L (5-31); Bilirubin Direct < 0.2 mg/dL (0.0-0.5); Bilirubin Total 0.3 mg/dL (0.0-1.0); Blood Urea Nitrogen 19 mg/dL (9-16); Calcium 9.1 mg/dL (8.4-10.2); Carbon Dioxide 22 mmol/L (22-29); Chloride 106 mmol/L (96-108); Creatinine Clr Calc Pharmacy 35.9; Estimated Glomerular Filt Rate 47; Glucose Random 164 mg/dL (60-115); Magnesium 2.3 mg/dL (1.6-2.6); Potassium 5.1 mmol/L (3.3-5.1); Sodium 137 mmol/L (135-145)
[2020-09-17 10:24] LABS: Glucose Urine UA NEG (NEG); Leukocyte Esterase Urine 2+ (NEG); Nitrite Urine NEG (NEG); UACC Culture Trigger YES; Urine Blood NEG (NEG); Urine Ketones NEG (NEG); Urine Protein NEG (NEG-TRACE)
[2020-09-17 10:25] LABS: Influenza A PCR NEGATIVE (Negative); Influenza B PCR NEGATIVE (Negative); Resp Syncy Virus RNA Qual PCR NEGATIVE (Negative); SARS COV2 PCR INHOUSE NEGATIVE (Negative)
[2020-09-17 10:27] LABS: Appearance Urine HAZY; Color Urine YELLOW
[2020-09-17 10:39] LABS: Bacteria Urine 1+ /LPF; RBC Urine 0-2 /HPF (0); Squamous Epithelial Cell Urine 2+ /LPF
[2020-09-17 10:48] LABS: Amphetamine Screen Urine Not Detected (Not Detect); Barbiturates, Urine POSITIVE (Not Detect); Benzodiazepines Screen Urine Not Detected (Not Detect); Cannabinoid Screen Urine Not Detected (Not Detect); Cocaine Screen Urine Not Detected (Not Detect); Fentanyl, urine Not Detected (Not Detect); Opiate Screen Urine Not Detected (Not Detect); Phencyclidine Screen Urine Not Detected (Not Detect)
[2020-09-17 11:11] VITALS: BP 120/59; PULSE 91; RESP 14; TEMP 36.7; O2SAT 98
--- NOTE | 2020-09-17 11:20 | PC.NURSE ---
online form completed for [facility]- confirmation sent to this rn email
[2020-09-17 16:05] VITALS: BP 124/50; PULSE 90; RESP 18; TEMP 36.1; O2SAT 98
--- NOTE | 2020-09-17 17:22 | PC.NURSE ---
cleared by n, daughter refusing to take patient back home and states she has to go to [facility] or something. dee bunch aware and franchesca ramirez aware
[2020-09-17 18:11] VITALS: BP 124/50; PULSE 90
[2020-09-17] MEDS: Cholecalciferol (Vitamin D3) 25 MCG TABLET PO (18:11)
[2020-09-17] MEDS: Metoprolol Tartrate 50 MG TABLET PO (18:11)
[2020-09-17] MEDS: glipiZIDE 5 MG TABLET PO (18:11)
[2020-09-17] MEDS: amLODIPine Besylate 5 MG TABLET PO (18:11)
--- NOTE | 2020-09-17 18:21 | PC.NURSE ---
cm at bedside to discuss with pt
--- NOTE | 2020-09-17 19:00 | MHC.CM.ED ---
Addendum entered by Jessy Xiong 09/17/20 19:34: CM requested a copy of [facility] evaluation and given fax number. Addendum entered by Jessy Xiong 09/17/20 19:31: Pt seen in ED with Crisis evaluation on 09/13/2020 Original Note: CM met with pt with spanish medical interpreter, as pt is Romanian speaking. Pt pleasant and cooperative. A&Ox3. Pt states she feels better, is not hearing voices, and does not want to kill herself. Pt states she lives with her daughter and feels safe. Would like to go back home. 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 PT consult for am. Pt agreeable to staying overnight. Spoke with daughter, Rosalina Howard ([phone]) who was very tearful and upset during CM interview. States no one will help her. States something is wrong with her mother. States she feels unsafe to leave her alone. States her mother is normally talkative and calls her sister daily. Has not called in sister in 2 weeks. Is not eating well or talking. Will not go to her day program, which she normally enjoys. Pt. sees Dr. Maricarmen Muse at [facility]. Rosalina Parmar tells CM she cannot take her mother home like this. States she will take her back, but not now. Reiterates that she needs help. States she hasn't been able to go to work this past week, because she was afraid to leave her mother home alone. States her mother was outside, fully dressed this am, just walking around. CM explained to daughter that UTI's can cause confusion and her mother is still being treated for a UTI. Explained that a PT evaluation will occur in the morning to determine if her mother needs STR. If not, explained at [facility] will authorize usp care, which could be 1-2 weeks to give her some respite. Daughter agreeable to either plan, just reiterates that her mother cannot come home now. Spoke with Fern BARRETT, who tells CM that this pt and daughter are known to her. States she recommended her daughter make an emergency appointment with her psychiatrist for medicine changes and for her to contact [facility] for more help last week. LEIDY BARRETT states pt does not need inpatient services, and can be managed as an outpatient. She tells CM that Dr. Muse made one med change, but daughter stated that did not help. Per [facility], medication changes can be managed as an outpatient. States she offered the daughter a partial hospitalization program, but daughter refused. Plan: Call [facility] in am to verify existing services. PT evaluation Referrals for STR vs Assisted Care PASSR Update daughter and patient with plan
[2020-09-17] MEDS: Atorvastatin Calcium 40 MG TABLET PO (20:46)
[2020-09-17] MEDS: Mirtazapine 15 MG TABLET PO (20:46)
[2020-09-17] MEDS: Omeprazole 20 MG CAPSULE.DR PO (20:46)
[2020-09-17] MEDS: OLANZapine 7.5 MG TABLET 15 MG PO (20:46)
[2020-09-18 02:28] VITALS: BP 122/62; PULSE 84; RESP 16; TEMP 36.3; O2SAT 98
--- NOTE | 2020-09-18 06:41 | PC.NURSE ---
Patient slept through the night, no distress observed/reported, patient is + for UTI and being treated with ABT, med compliant, behavior appropriate, patient's daughter refused to take patient back, patient is now case management case, VSS, will continue to monitor.
--- NOTE | 2020-09-18 07:11 | PC.NURSE ---
patient appears to remain at rest respirations are even and unlabored. patient appears in no distress.
[2020-09-18 07:19] VITALS: BP 122/62; PULSE 84; O2SAT 98
[2020-09-18 08:02] VITALS: BP 122/62; PULSE 84
[2020-09-18] MEDS: Cyanocobalamin (Vitamin B-12) 1,000 MCG TABLET 1000 MCG PO ×2 (08:02→08:09)
[2020-09-18] MEDS: Losartan Potassium 25 MG TABLET PO (08:02)
[2020-09-18] MEDS: Folic Acid 1 MG TABLET PO (08:03)
[2020-09-18] MEDS: Insulin Glargine,Hum.rec.anlog 100 UNIT/ML 10 ML VIAL 10 UNIT SUBCUT (08:03)
[2020-09-18] MEDS: glipiZIDE 5 MG TABLET PO (08:04)
[2020-09-18] MEDS: DULoxetine HCl 60 MG CAPSULE.DR PO (08:04)
[2020-09-18 08:05] VITALS: BP 122/62; PULSE 84
[2020-09-18] MEDS: Metoprolol Tartrate 50 MG TABLET PO (08:05)
[2020-09-18] MEDS: Omeprazole 20 MG CAPSULE.DR PO (08:07)
[2020-09-18 08:39] VITALS: BP 132/68; PULSE 109; RESP 16; TEMP 36.9; O2SAT 98
--- NOTE | 2020-09-18 09:20 | MHC.CM.ED ---
Patient remains in ER. No STR recommended by physical therapy. Anticipate patient will be difficult to place. Referrals broadcasted to all facilities within 15 miles of patient's home that are contracted with [facility] for shelter care. PASRR level 1 completed and faxed to [facility]. Will need an exemption letter. Continue to monitor for d/c needs.
[2020-09-18] MEDS: clonazePAM 0.5 MG TABLET PO (11:03)
--- NOTE | 2020-09-18 12:04 | MHC.CM.ED ---
Per Camila at [facility], patient received 2nd Moderna on 04/29. Per Care team at [facility], family is requesting [facility] as first choice. [facility] aware. Continue to monitor for d/c needs.
--- NOTE | 2020-09-18 13:41 | MHC.CM.ED ---
[facility] bed once they obtain ins auth. Patient's daughter, Rosalina Parmar aware. Continue to monitor for d/c needs.
--- NOTE | 2020-09-18 14:43 | MHC.CM.ED ---
[facility] has obtained insurance auth. Patient can leave at 430pm. [facility] booked. Med nec with chart. Patient, daughter Chen Akhtar in the pod and Mayela TAYLOR aware. Continue to monitor for d/c needs.
--- NOTE | 2020-09-18 15:39 | PC.NURSE ---
Nurse to nurse report called to Bebe at [facility], ambulance booked for transport. Pt calm and cooperative at this time, awaiting DC
[2020-09-18 16:53] VITALS: BP 148/72; PULSE 101; RESP 18; TEMP 35.7; O2SAT 96
== END 2020-09-18 17:44 | disposition skilled nursing facility (03) ==
PROVIDERS: Physician Assistant; Emergency Provider Emergency Medicine
DX: F41.9 Anxiety disorder, unspecified (principal); N39.0 Urinary tract infection, site not specified; F31.9 Bipolar disorder, unspecified; R44.0 Auditory hallucinations; I10 Essential (primary) hypertension; E11.9 Type 2 diabetes mellitus without complications; E78.5 Hyperlipidemia, unspecified; Z79.4 Long term (current) use of insulin; Z79.02 Long term (current) use of antithrombotics/antiplatelets; Z79.899 Other long term (current) drug therapy
CPT/HCPCS: 0241U; 36415; 80048; 80076; 80307; 81001; 82077; 83735; 85025; 87086; 93005; 97161; 99285

== ENCOUNTER 2020-09-23 16:12 | Emergency (ER) | payer MEDICARE, SELFPAY ==
--- NOTE | 2020-09-23 16:21 | ED.PSYCH ---
HPI - Psych General Chief Complaint: General Medical Stated Complaint: AUDITORY HALLUCINATIONS FOR 3DAYS,FROM SNF Time Seen by Provider: 09/23/20 16:19 Source: family and EMS Mode of arrival: EMS Limitations: no limitations History of Present Illness HPI Narrative: Patient is brought to the emergency room, patient is coming from [facility], according to the staff, they reported to EMS that the patient has been complaining of auditory hallucinations for the last 2 days, telling the patient to kill herself and to hurt others. Of note, patient was discharged on September 17 from this facility for the similar complaint. Otherwise, patient has no complaints. Patient states that she does not remember making any allegations to hurt herself or hurt others, she states that she is hearing voices but denies SI or HI. Related Data Home Medications Medication Instructions Recorded Confirmed cholecalciferol (vitamin D3) 25 25 mcg PO DAILY@1800 09/17/20 09/17/20 mcg (1,000 unit) tablet glipizide 5 mg tablet 5 mg PO BID@0900,1800 09/17/20 09/17/20 insulin glargine 100 unit/mL (3 10 unit SUBCUT DAILY 09/17/20 09/17/20 mL) subcutaneous pen (Lantus Solostar U-100 Insulin) losartan 25 mg tablet 25 mg PO DAILY 09/17/20 09/17/20 metoprolol tartrate 50 mg tablet 50 mg PO BID@0900,1800 09/17/20 09/17/20 mirtazapine 30 mg tablet 15 - 30 mg PO BEDTIME 09/17/20 09/17/20 olanzapine 15 mg tablet 15 mg PO BEDTIME 09/17/20 09/17/20 omeprazole 20 mg tablet,delayed 20 mg PO BID 09/17/20 09/17/20 release semaglutide (Ozempic) 0.5 mg SUBCUT QWEEK 09/17/20 09/17/20 amlodipine 5 mg tablet 1 tab PO QPM 09/23/20 09/23/20 atorvastatin 40 mg tablet 1 tab PO BEDTIME 09/23/20 09/23/20 calcium carbonate 500 mg calcium 1 tab PO BID 09/23/20 09/23/20 (1,250 mg) tablet (Oyster Shell Calcium 500) clonazepam 0.5 mg tablet 1 tab PO BID PRN 09/23/20 09/23/20 cyanocobalamin (vitamin B-12) 1 tab PO QAM 09/23/20 09/23/20 1,000 mcg tablet duloxetine 60 mg capsule,delayed 1 cap PO QAM 09/23/20 09/23/20 release folic acid 1 mg tablet 1 tab PO QAM 09/23/20 09/23/20 insulin glargine 100 unit/mL (3 10 unit SUBCUT QPM 09/23/20 09/23/20 mL) subcutaneous pen (Lantus Solostar U-100 Insulin) losartan 25 mg tablet 1 tab PO QAM 09/23/20 09/23/20 mirtazapine 30 mg tablet 0.5 - 1 tab PO BEDTIME 09/23/20 09/23/20 olanzapine 15 mg tablet 1 tab PO BEDTIME 09/23/20 09/23/20 omeprazole 20 mg capsule,delayed 1 cap PO QAM 09/23/20 09/23/20 release semaglutide (Ozempic) 0.5 mg SUBCUT QWEEK 09/23/20 09/23/20 Previous Rx's Medication Instructions Recorded cefuroxime axetil 500 mg tablet 500 mg PO BID 5 Days #10 tab 09/18/20 Allergies Allergy/AdvReac Type Severity Reaction Status Date / Time codeine [Codeine] Allergy Mild UPSET Verified 08/03/20 11:29 STOMACH, visual impairment DEQUAN Inhibitors AdvReac Intermediate COUGH Verified 08/03/20 11:29 [DEQUAN INHIBITORS] hydrochlorothiazide AdvReac Intermediate HYPONATREMI Verified 08/03/20 11:29 [HYDROCHLOROTHIAZIDE] A Review of Systems Review of Systems: Constitutional : No Weight loss, No Fever, No Chills, No Night Sweats, No Fatigue, No Malaise ENT/Mouth : No Hearing loss, No Ear Pain, No Nasal Congestion, No Sinus Pain, No Hoarseness, No sore throat, No Rhinorrhea, No Swallowing Difficulty Eyes: No Eye Pain, No Swelling, No Redness, No Foreign Body, No Discharge, No Vision Changes Cardiovascular : No Chest Pain, No SOB, No Dyspnea on Exertion, No Orthopnea, No Edema, No Palpitations Respiratory : No Cough, No Sputum, No Wheezing, No Smoke Exposure, No Dyspnea Gastrointestinal : No Nausea, No Vomiting, No Diarrhea, No Constipation, No abdominal Pain, No Hematochezia, No Melena Genitourinary : no irregular bleeding, No Dysuria, No Urinary Frequency, No Hematuria, No Urinary Incontinence, No Urgency, No Flank Pain, No Urinary Flow Changes, No Hesitancy Musculoskeletal : No joint pain, No Myalgias, No Joint Swelling Skin : No Skin Lesions, No rash Neuro : No Weakness, No Numbness, No Paresthesias, No Loss of Consciousness, No Dizziness, No Headache Psych : No Anxiety/Panic, No Depression, complaining of auditory hallucinations, patient denies SI or HI Heme/Lymph: No Bruising, No Bleeding,No Lymphadenopathy Endocrine : No Polyuria, No Polydipsia, No Temperature Intolerance PMF Past Medical History Medical History Barretts esophagus Bipolar disorder Diabetes Diabetes type 2, uncontrolled Hepatitis C HLD (hyperlipidemia) HTN (hypertension) Hypertension Invasive ductal carcinoma of breast intermediate frame tender (current) use of insulin Rheumatoid arthritis T2DM (type 2 diabetes mellitus) Vitamin D deficiency Surgical History H/O parotidectomy History of cholecystectomy Status post left breast lumpectomy Status post right breast lumpectomy Family History Family History Daughter No problems noted. Father No problems noted. Mother No problems noted. Social History Social History Alcohol intake: never Patient Tobacco Use Status: Never used Tobacco Use of substances other than those prescribed or required for medical reasons: No Advance Directives: Yes Advance Directives on File: Yes Advance Directives Date on File: 09/23/20 Current occupational status: unemployed Current occupation: right handed Physical Exam Vital Signs: Vital Signs: Last Vital Signs Temp 98.3 F 09/23/20 21:17 Pulse 102 H 09/23/20 23:05 Resp 18 09/23/20 21:17 BP 158/73 H 09/23/20 23:05 Pulse Ox 97 09/23/20 23:05 Body Mass Index 29.2 Const: Other: Appearance: Alert. Oriented X3. No acute distress. Eyes: Pupils equal, round and reactive to light. ENT: Pharynx normal. Neck: Normal inspection. Neck supple. No lymph nodes noted. No crepitus CVS: Normal heart rate and rhythm. Pulses normal. Normal S1 and S2 Respiratory: No respiratory distress. Breath sounds normal. No Wheezing. No rales Abdomen: Soft and nontender. No rigidity. No distention. good BS x4 Skin: Skin warm and dry. Normal skin color. Normal skin turgor. alopecia Extremities: No lower extremity edema No Lacerations. No Rash Neuro: Oriented X 3. Cranial nerves 2-12 grossly intact. No motor deficit. No sensory deficit. Moving all extermities. No slurred speech. Course Course Course Narrative: Patient has been unable to provide a urine sample, once she is ready to urinate, she will her nurse know. Seems that the last time the patient was seen, she was diagnosed with a UTI. At this time, patient denies any symptoms. Physician observation started at 19:37. [facility] consult 23:00 patient was evaluated by [facility], patient will be an inpatient bed search, voluntary. If the patient decides to return home, she may recur do so, she is not under a [address] [facility] - Psych Lab Data Labs: Lab Results 09/23/20 09/23/20 Range/Units 20:19 20:19 Urine Color YELLOW Urine Appearance CLEAR Urine pH 7.0 (5.0-8.0) Ur Specific [place] 1.010 (1.005-1.025) Urine Protein NEG (NEG-TRACE) MG/DL Urine Glucose (UA) NEG (NEG) MG/DL Urine Ketones NEG (NEG) MG/DL Urine Blood NEG (NEG) Urine Nitrite NEG (NEG) Ur Leukocyte Esterase TRACE H (NEG) Urine RBC 0-2 (0) /HPF Urine WBC 0-2 (0-4) /HPF Ur Squamous Epith Cells TRACE /LPF Urine Bacteria TRACE /LPF Urine Opiates Screen Not Detected (Not Detect) Urine Fentanyl Screen Not Detected (Not Detect) Ur Barbiturates Screen Not Detected (Not Detect) Ur Phencyclidine Scrn Not Detected (Not Detect) Ur Amphetamines Screen Not Detected (Not Detect) U Benzodiazepines Scrn Not Detected (Not Detect) Urine Cocaine Screen Not Detected (Not Detect) U Marijuana (THC) Screen Not Detected (Not Detect) Discharge Plan Discharge Clinical Impression: Auditory hallucination Prescriptions: No Action mirtazapine 30 mg Tablet 15 - 30 mg PO BEDTIME RF: 0 losartan 25 mg Tablet 25 mg PO DAILY RF: 0 metoprolol tartrate 50 mg Tablet 50 mg PO BID@0900,1800 RF: 0 olanzapine 15 mg Tablet 15 mg PO BEDTIME RF: 0 glipizide 5 mg Tablet 5 mg PO BID@0900,1800 RF: 0 Lantus Solostar U-100 Insulin 100 unit/mL (3 mL) Insulin Pen 10 unit SUBCUT DAILY RF: 0 omeprazole 20 mg Tablet,Delayed Release (Dr/Ec) 20 mg PO BID RF: 0 cholecalciferol (vitamin D3) 25 mcg (1,000 unit) tablet 25 mcg PO DAILY@1800 RF: 0 Ozempic 0.25 mg or 0.5 mg(2 mg/1.5 mL) pen injector 0.5 mg subcut QWEEK RF: 0 cefuroxime axetil 500 mg tablet 500 mg PO BID 5 Days Qty: 10 RF: 0 atorvastatin 40 mg tablet 1 tab PO BEDTIME RF: 0 clonazepam 0.5 mg tablet 1 tab PO BID PRN (Reason: Anxiety) RF: 0 cyanocobalamin (vitamin B-12) 1,000 mcg tablet 1 tab PO QAM RF: 0 amlodipine 5 mg tablet 1 tab PO QPM RF: 0 calcium carbonate [Oyster Shell Calcium 500] 500 mg calcium (1,250 mg) tablet 1 tab PO BID RF: 0 mirtazapine 30 mg tablet 0.5 - 1 tab PO BEDTIME RF: 0 losartan 25 mg tablet 1 tab PO QAM RF: 0 omeprazole 20 mg capsule,delayed release(DR/EC) 1 cap PO QAM RF: 0 folic acid 1 mg tablet 1 tab PO QAM RF: 0 olanzapine 15 mg tablet 1 tab PO BEDTIME RF: 0 duloxetine 60 mg capsule,delayed release(DR/EC) 1 cap PO QAM RF: 0 Lantus Solostar U-100 Insulin 100 unit/mL (3 mL) insulin pen 10 unit subcut QPM RF: 0 Ozempic 0.25 mg or 0.5 mg(2 mg/1.5 mL) pen injector 0.5 mg subcut QWEEK RF: 0
[2020-09-23 16:32] VITALS: BP 168/67; BP 186/92; PULSE 93; PULSE 96; RESP 16; TEMP 36.9; O2SAT 99; BMI 29.2
--- NOTE | 2020-09-23 17:35 | PC.NURSE ---
PATIENT WAS UNABLE TO PROVIDE URINE SAMPLE WHEN TECH TOOK FOR HEALTH INSPECTOR, AWARE SAMPLE IS NEEDED.
[2020-09-23 18:21] VITALS: BP 141/66; PULSE 92; RESP 16; TEMP 36.8; O2SAT 99
[2020-09-23 20:29] LABS: Glucose Urine UA NEG (NEG); Leukocyte Esterase Urine TRACE (NEG); Nitrite Urine NEG (NEG); UACC Culture Trigger YES; Urine Blood NEG (NEG); Urine Ketones NEG (NEG); Urine Protein NEG (NEG-TRACE)
[2020-09-23 20:37] LABS: Appearance Urine CLEAR; Color Urine YELLOW
[2020-09-23 20:42] LABS: Bacteria Urine TRACE /LPF; RBC Urine 0-2 /HPF (0); Squamous Epithelial Cell Urine TRACE /LPF; WBC Urine 0-2 /HPF (0-4)
[2020-09-23 20:47] LABS: Amphetamine Screen Urine Not Detected (Not Detect); Barbiturates, Urine Not Detected (Not Detect); Benzodiazepines Screen Urine Not Detected (Not Detect); Cannabinoid Screen Urine Not Detected (Not Detect); Cocaine Screen Urine Not Detected (Not Detect); Fentanyl, urine Not Detected (Not Detect); Opiate Screen Urine Not Detected (Not Detect); Phencyclidine Screen Urine Not Detected (Not Detect)
[2020-09-23 21:17] VITALS: BP 130/56; PULSE 116; RESP 18; TEMP 36.8; O2SAT 99
--- NOTE | 2020-09-23 21:48 | PC.NURSE ---
Referral put into online system for eval.
--- NOTE | 2020-09-23 22:36 | PC.NURSE ---
CARE to come see patient
[2020-09-23 23:05] VITALS: BP 158/73; PULSE 102; O2SAT 97
[2020-09-23 23:59] LABS: COVID-19 Test Negative (Negative); IDNOW Serial# 9DD0AD1C
--- NOTE | 2020-09-24 01:19 | MHC.CARE ---
Pt is a voluntary bedsearch
[2020-09-24 04:06] VITALS: BP 154/66; PULSE 114; RESP 16; TEMP 36.1; O2SAT 98
[2020-09-24 04:46] VITALS: BP 154/66; PULSE 114
[2020-09-24] MEDS: clonazePAM 0.5 MG TABLET PO (04:46)
[2020-09-24] MEDS: amLODIPine Besylate 5 MG TABLET PO (04:46)
[2020-09-24 05:02] LABS: Glucose, Whole Blood 136 mg/dL (60-115)
[2020-09-24] MEDS: Insulin Glargine,Hum.rec.anlog 100 UNIT/ML 10 ML VIAL 10 UNIT SUBCUT (05:13)
[2020-09-24] MEDS: Cyanocobalamin (Vitamin B-12) 1,000 MCG TABLET 1000 MCG PO ×2 (05:14→10:22)
--- NOTE | 2020-09-24 05:46 | PC.NURSE ---
Patient was calling for help, seems anxious and tremulous, HR 114, BP 154/66, PRN Klonopin 0.5 mg administered along with Amlodipine, POC was 136, Lantus 10 units per provider's order patient reassured of the safety, patient is currently resting quietly, will continue to monitor.,
--- NOTE | 2020-09-24 07:04 | PC.NURSE ---
patient appears awake foir the day, able to let her needs be known, up and using bathroom, starting breakfast
[2020-09-24 08:16] LABS: Glucose, Whole Blood 154 mg/dL (60-115)
[2020-09-24 10:22] VITALS: BP 154/66; PULSE 114
[2020-09-24] MEDS: DULoxetine HCl 60 MG CAPSULE.DR PO (10:22)
[2020-09-24] MEDS: Omeprazole 20 MG CAPSULE.DR PO (10:22)
[2020-09-24] MEDS: Folic Acid 1 MG TABLET PO (10:22)
[2020-09-24] MEDS: Losartan Potassium 25 MG TABLET PO (10:22)
[2020-09-24 10:38] LABS: MANUAL DIFF FLAG NO
[2020-09-24 10:46] LABS: Basophils Percent Auto 0.1 % (0-2); Eosinophils Percent Auto 0.3 % (0-4); Hematocrit 39.8 % (37-47); Hemoglobin 13.6 g/dl (12.0-16.0); Imm Gran Abs Auto 0.04 X10*3/uL (0.00-0.03); Imm Gran Pct Auto 0.4 % (0.0-0.4); Lymphocytes Percent Auto 19.3 % (20-40); Mean Corpuscular HGB Conc 34.2 g/dl (31.0-35.0); Mean Corpuscular Hemoglobin 31.6 pg (27.0-33.0); Mean Corpuscular Volume 92.3 fL (80-98); Mean Platelet Volume 9.7 fL (9.4-12.3); Monocytes Absolute Auto 0.8 X10*3/uL (0.1-1.2); Neutrophils Absolute Auto 7.4 X10*3/uL (2.0-8.3); Neutrophils Percent Auto 71.9 % (45-73); Platelet Count 213 X10*3/uL (160-400); Red Blood Count 4.31 X10*6/uL (4.20-5.50); Red Cell Distribution Width 13.6 % (11.0-16.0); White Blood Count 10.2 X10*3/uL (4.8-10.8)
[2020-09-24 11:05] LABS: Alanine Aminotransferase 41 U/L (0-31); Albumin Level 3.7 g/dL (3.5-5.0); Alkaline Phosphatase 82 U/L (39-117); Anion Gap 10 (12-20); Aspartate Amino Transferase 20 U/L (5-31); Bilirubin Total 0.3 mg/dL (0.0-1.0); Blood Urea Nitrogen 12 mg/dL (9-16); Calcium 8.7 mg/dL (8.4-10.2); Carbon Dioxide 24 mmol/L (22-29); Chloride 105 mmol/L (96-108); Creatinine Clr Calc Pharmacy 53.8; Estimated Glomerular Filt Rate > 60; Glucose Random 89 mg/dL (60-115); Magnesium 2.2 mg/dL (1.6-2.6); Potassium 4.1 mmol/L (3.3-5.1); Sodium 135 mmol/L (135-145); Total Protein 7.1 g/dL (6.5-8.0)
[2020-09-24 13:16] VITALS: BP 173/71; PULSE 130; RESP 14; TEMP 36.2; O2SAT 97
[2020-09-24 13:39] VITALS: BP 173/71; PULSE 130
[2020-09-24] MEDS: Metoprolol Tartrate 50 MG TABLET PO (13:39)
--- NOTE | 2020-09-24 15:07 | P.CNPS_ITS ---
History of Present Illness Date of Service: 09/24/2020 Chief Complaint: AUDITORY HALLUCINATIONS FOR 3DAYS,FROM SNF Reason for Consult: Psychiatric evaluation for medication Requesting physician: Mayela Coughlin Discussed with referring provider: Yes Sources of Information: patient interviewed, chart reviewed and crisis/core team assessment reviewed HPI Narrative: Safia is a 69 y.o. Female who carries a diagnosis of bipolar depression, r/o of dementia. She was brought to [facility] from [facility] in [place]. Staff reported to EMS that Safia has been complaining of auditory hallucinations for the last 2 days and the voices are telling her kill herself and to hurt others. She had also been talking about the devil, observed to be responding to internal stimuli. She has recently been refusing meds at times. Staff also reported she has been ?shaking uncontrollably? but deny that this is a seizure, as she is alert and oriented. I spoke with staff and they report it appears she is having ?chills,? no fever or malaise, has ?significant anxiety.? I also spoke with patient?s daughter, who reports her mom has been having fine bilateral tremors for about a month in context of increased anxiety, will spill her water while taking her meds.? She was recently brought to [facility] on 09/13/2020 due to withdrawn behavior, depression, anxiety, and AH telling her to kill herself and hurt others. She had a full metabolic work up and head CT showed no focal deficits. Her daughter reported she has been med adherent and had a recent med change, her olanzapine was increased from 10 mg to 15 mg on 09/03/20 by her OP psychiatrist, however her daughter did not see improvement in sx. She was discharged to follow up with OP providers. She was brought again to [facility] on 09/17/2020 by her daughter due to anxiety, AH telling her to kill herself. She was treated for a UTI during the admission and [place] [facility].? I evaluated the patient this afternoon with [employer] spr[employer] services and upon interview, she reports her mood is ?so, so? and states she has been ?very depressed.? Says she has felt this way for ?a long time.? She says she is ?scared? and anxious that ?something will happen to me,? however is unable to elaborate on this. Says she felt safe at the half-way and at her daughter?s house but has felt nervous for a while. She is unable to identify precipitating or exacerbating factors. Says she is getting ?almost no sleep,? daytime energy is ?bad,? says sleep has been poor for ?a long time.? Appetite is low. She is alert and oriented. She currently denies A/VH or perceptual disturbances.? I reviewed past hospital records. Safia was psychiatrically admitted for inpatient stay in April 2015 due to similar presentation, i.e. increasingly anxious, paranoid, not eating, not sleeping, had suicidal ideation. She was seen by nephrology on the medical floor and was found to be in acute renal failure, which quickly resolved. She had been withdrawn, depressed, lost weight. Precipitating factors included that she had been taken off her seroquel by OP psychiatrist, Dr. Simmons at [facility] ([facility]) , had been maintained on this for some time but discontinued due to her doing well. Historically she had been on abilify and seroquel. During her psych admission, seroquel was re-started and titrated up to 300 mg QHS and 100 mg QD PRN with good effect. There was some question of EPS, tongue protrusion, but Safia also has dentures. She was readmitted in December 2015, presenting with severe depression, bordering on catatonic, decreased speech, isolation, sitting in the dark, poor sleep, tired, anxious. She appeared to have slower thought process and memory impairment. During this admission, Dr. 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 She had mild extrapyramidal features possibly from severe depression. She did poorly on the MOCA and was noted to have a low educational level. Head CT was normal, no focal signs, mild bilateral frontotemporal atrophy. He recommended aggressive treatment of depression and follow up to rule out dementia. She was started on lexapro, bupropion, and clonazepam with good effect. She was discharged to outpatient providers. She had two crisis evals with N in 2017 for depression, anxiety, agitation, non-adherence with meds, increased confusion, anxiety, constantly repeating herself, defecating on herself. She was hospitalized at [facility] after her first crisis eval but re-presented to crisis 10 days after discharge. She was supposed to have a neuropsych eval but did not follow up with this testing.? I spoke with Safia?s daughter, Agata, to obtain collateral info. She reports her mother has never formally been diagnosed with dementia but that she has had progressive memory impairment for years with short term memory issues, however remote memory is intact. Agata is unsure about medication history i.e. reasons for seroquel, lexparo, and bupropion being discontinued. Safia has been on olanzapine since 2018 and has been working with her OP psychiatrist, Maricarmen Muse at [facility] for 2-3 years- I left a message with her psychiatrist but was unable to speak with her. Per Agata, Safia has been decompensating over the past month. She reports she normally sleeps well, wears a CPAP for ALICE, but recently has been refusing it along with her medications. She has lost ?fifteen pounds in a month,? appetite is poor. Agata reports her mom defecated on herself ?the other day,? which is atypical for her. Says she has been isolative, is ?always nervous,? sits in the dark, has ?no expression on her face,? agitated and ?house for no reason.? This is off baseline, as 4 weeks ago Safia was attending a day program, dressing herself, calling her sister, doing dishes, she had good appetite, energy, and sleep. Agata says her mom?s decline has been ?happening fast,? she is unable to identify precipitating factors, no recent TBI or concussions. Urine culture was done in the ED today, no growth or signs of UTI, urinalysis showed trace leukocytes. Per Agata, Safia was diagnosed with bipolar as a young woman. Medical Evaluation Reviewed: Yes [facility] Medical History (Updated 09/24/20 @ 16:08 by Azalea Carrasco NP) Barretts esophagus Bipolar disorder Diabetes Diabetes type 2, uncontrolled Hepatitis C HLD (hyperlipidemia) HTN (hypertension) Hypertension Invasive ductal carcinoma of breast FPC (current) use of insulin Rheumatoid arthritis T2DM (type 2 diabetes mellitus) Vitamin D deficiency Surgical History H/O parotidectomy History of cholecystectomy Status post left breast lumpectomy Status post right breast lumpectomy Diagnostics Vital Signs (24Hr): Vital Signs - 24 hr 09/23/20 16:32 09/23/20 18:21 09/23/20 21:17 Temperature 98.5 F 98.2 F 98.3 F Pulse Rate 93 92 116 H Respiratory Rate 16 16 18 Blood Pressure 168/67 H 141/66 H 130/56 L Pulse Oximetry 99 99 99 09/23/20 23:05 09/24/20 04:06 09/24/20 04:46 Temperature 97.0 F Pulse Rate 102 H 114 H 114 H Respiratory Rate 16 Blood Pressure 158/73 H 154/66 H 154/66 H Pulse Oximetry 97 98 09/24/20 10:22 09/24/20 13:16 09/24/20 13:39 Temperature 97.1 F Pulse Rate 114 H 130 H 130 H Respiratory Rate 14 Blood Pressure 154/66 H 173/71 H 173/71 H Pulse Oximetry 97 Body Mass Index 29.2 Labs Results: 09/24/20 10:33 09/24/20 10:33 Labs: Laboratory Results - last 48 hr 09/23/20 09/23/20 09/23/20 20:19 20:19 23:00 WBC RBC Hgb Hct MCV MCH MCHC RDW Plt Count MPV Immature Gran % (Auto) Neut % (Auto) Lymph % (Auto) Sterling % (Auto) Eos % (Auto) Baso % (Auto) Lymph # (Auto) Sterling # (Auto) Eos # (Auto) Baso # (Auto) Abs Immat Gran (auto) Absolute Neuts (auto) Absolute Nucleated RBC Nucleated RBC % (auto) Sodium Potassium Chloride Carbon Dioxide Anion Gap BUN Creatinine Estim Creat Clear Calc Estimated GFR POC Glucose 154 H Random Glucose Calcium Magnesium Total Bilirubin AST ALT Alkaline Phosphatase Total Protein Albumin Urine Color YELLOW Urine Appearance CLEAR Urine pH 7.0 Ur Specific [place] 1.010 Urine Protein NEG Urine Glucose (UA) NEG Urine Ketones NEG Urine Blood NEG Urine Nitrite NEG Ur Leukocyte Esterase TRACE H Urine RBC 0-2 Urine WBC 0-2 Ur Squamous Epith Cells TRACE Urine Bacteria TRACE Urine Opiates Screen Not Detected Urine Fentanyl Screen Not Detected Ur Barbiturates Screen Not Detected Ur Phencyclidine Scrn Not Detected Ur Amphetamines Screen Not Detected U Benzodiazepines Scrn Not Detected Urine Cocaine Screen Not Detected U Marijuana (THC) Screen Not Detected COVID-19 (JADYN) COVID-19 Clin Com 09/23/20 09/24/20 09/24/20 23:40 04:57 10:33 WBC 10.2 RBC 4.31 Hgb 13.6 Hct 39.8 MCV 92.3 MCH 31.6 MCHC 34.2 RDW 13.6 Plt Count 213 MPV 9.7 Immature Gran % (Auto) 0.4 Neut % (Auto) 71.9 Lymph % (Auto) 19.3 L Sterling % (Auto) 8.0 Eos % (Auto) 0.3 Baso % (Auto) 0.1 Lymph # (Auto) 2.0 Sterling # (Auto) 0.8 Eos # (Auto) 0.0 Baso # (Auto) 0.0 Abs Immat Gran (auto) 0.04 H Absolute Neuts (auto) 7.4 Absolute Nucleated RBC 0.000 Nucleated RBC % (auto) 0.0 Sodium Potassium Chloride Carbon Dioxide Anion Gap BUN Creatinine Estim Creat Clear Calc Estimated GFR POC Glucose 136 H Random Glucose Calcium Magnesium Total Bilirubin AST ALT Alkaline Phosphatase Total Protein Albumin Urine Color Urine Appearance Urine pH Ur Specific [place] Urine Protein Urine Glucose (UA) Urine Ketones Urine Blood Urine Nitrite Ur Leukocyte Esterase Urine RBC Urine WBC Ur Squamous Epith Cells Urine Bacteria Urine Opiates Screen Urine Fentanyl Screen Ur Barbiturates Screen Ur Phencyclidine Scrn Ur Amphetamines Screen U Benzodiazepines Scrn Urine Cocaine Screen U Marijuana (THC) Screen COVID-19 (JADYN) Negative COVID-19 Clin Com See Note 09/24/20 09/24/20 10:33 10:33 WBC RBC Hgb Hct MCV MCH MCHC RDW Plt Count MPV Immature Gran % (Auto) Neut % (Auto) Lymph % (Auto) Sterling % (Auto) Eos % (Auto) Baso % (Auto) Lymph # (Auto) Sterling # (Auto) Eos # (Auto) Baso # (Auto) Abs Immat Gran (auto) Absolute Neuts (auto) Absolute Nucleated RBC Nucleated RBC % (auto) Sodium 135 Potassium 4.1 Chloride 105 Carbon Dioxide 24 Anion Gap 10 L BUN 12 Creatinine 0.79 Estim Creat Clear Calc 53.8 Estimated GFR > 60 POC Glucose Random Glucose 89 D Calcium 8.7 Magnesium 2.2 Total Bilirubin 0.3 AST 20 ALT 41 H Alkaline Phosphatase 82 Total Protein 7.1 Albumin 3.7 Urine Color Urine Appearance Urine pH Ur Specific [place] Urine Protein Urine Glucose (UA) Urine Ketones Urine Blood Urine Nitrite Ur Leukocyte Esterase Urine RBC Urine WBC Ur Squamous Epith Cells Urine Bacteria Urine Opiates Screen Urine Fentanyl Screen Ur Barbiturates Screen Ur Phencyclidine Scrn Ur Amphetamines Screen U Benzodiazepines Scrn Urine Cocaine Screen U Marijuana (THC) Screen COVID-19 (JADYN) COVID-19 Clin Com Mental Status Exam Mental Status Exam Narrative: A&O. Overweight, lying down in hospital gown, unkempt. Good eye contact, inattentive. No Tics or Tremors. Tongue protrusion noted but has dentures. Calm, guarded, difficult to engage. Non-pressured speech, non- spontaneous with regular rate and rhythm, normal volume and prosody. No prolonged speech latency or dysarthria. Mood is ?so, so,? affect is blunted. Denies SI/SIB/HI upon inquiry. Denies A/VH or delusional thought content. Thoughts are concrete, linear. Suspected cognitive/ memory impairment. Insight/ Judgment limited but adequate. Medications Medications Current Medications Generic Name Dose Route Start Last Admin Trade Name Freq PRN Reason Stop Dose Admin Amlodipine Besylate 5 mg 09/24/20 04:30 09/24/20 04:46 Amlodipine Besylate 5 Mg Tablet PO 5 mg BEDTIME BRADFORD Administration Protocol Atorvastatin Calcium 40 mg 09/24/20 21:00 Atorvastatin Calcium 40 Mg Tablet PO BEDTIME BRADFORD Calcium Carbonate 500 mg 09/24/20 09:00 09/24/20 10:28 Calcium Carbonate 500 Mg Tablet PO 500 mg BID BRADFORD Administration Clonazepam 0.5 mg 09/24/20 04:23 09/24/20 04:46 Clonazepam 0.5 Mg Tablet PO 0.5 mg BID PRN Administration Anxiety Cyanocobalamin 1,000 mcg 09/24/20 04:30 09/24/20 10:22 Cyanocobalamin (Vitamin B-12) 1,000 Mcg Tablet PO 1,000 mcg DAILY BRADFORD Administration Duloxetine HCl 60 mg 09/24/20 09:00 09/24/20 10:22 Duloxetine Hcl 60 Mg Capsule.Dr PO 60 mg DAILY BRADFORD Administration Folic Acid 1 mg 09/24/20 09:00 09/24/20 10:22 Folic Acid 1 Mg Tablet PO 1 mg DAILY BRADFORD Administration Insulin Glargine 10 unit 09/24/20 04:30 09/24/20 05:13 Insulin Glargine,Hum.Rec.Anlog 100 Unit/Ml 10 Ml Vial SUBCUT 10 unit BEDTIME BRADFORD Administration Losartan Potassium 25 mg 09/24/20 09:00 09/24/20 10:22 Losartan Potassium 25 Mg Tablet PO 25 mg DAILY BRADFORD Administration Protocol Metoprolol Tartrate 50 mg 09/24/20 13:15 09/24/20 13:39 Metoprolol Tartrate 50 Mg Tablet PO 50 mg BID BRADFORD Administration Protocol Mirtazapine 30 mg 09/24/20 21:00 Mirtazapine 30 Mg Tablet PO BEDTIME BRADFORD Olanzapine 15 mg 09/24/20 21:00 Olanzapine 7.5 Mg Tablet PO BEDTIME BRADFORD Omeprazole 20 mg 09/24/20 09:00 09/24/20 10:22 Omeprazole 20 Mg Capsule.Dr PO 20 mg DAILY BRADFORD Administration Allergies Allergies Allergy/AdvReac Type Severity Reaction Status Date / Time codeine [Codeine] Allergy Mild UPSET Verified 08/03/20 11:29 STOMACH, visual impairment DEQUAN Inhibitors AdvReac Intermediate COUGH Verified 08/03/20 11:29 [DEQUAN INHIBITORS] hydrochlorothiazide AdvReac Intermediate HYPONATREMI Verified 08/03/20 11:29 [HYDROCHLOROTHIAZIDE] A Assessment & Plan Assessment & Plan (1) Auditory hallucination: Status: Acute Code(s): R44.0 - Auditory hallucinations Assessment and Plan: -Continue monitoring medically. Patient is currently medically cleared. -Patient cannot leave AGAINST MEDICAL ADVICE. She is voluntary for an inpatient psych admission for medication evaluation for depression, hallucinations, memory impairment. -Care Team evaluation for bed search. ? Greater than 50% of the session was spent on counseling and/or coordination of care
[2020-09-24 17:25] VITALS: BP 129/74; PULSE 113; RESP 20; TEMP 36.1; O2SAT 96
[2020-09-24 18:06] LABS: COVID-19 Test Negative (Negative)
== END 2020-09-24 19:47 ==
PROVIDERS: Physician Assistant Medical; Emergency Provider Emergency Medicine; PCP Internal Medicine
DX: R44.0 Auditory hallucinations (principal); E11.9 Type 2 diabetes mellitus without complications; I10 Essential (primary) hypertension; Z79.899 Other long term (current) drug therapy; Z79.4 Long term (current) use of insulin; Z20.822 Contact with and (suspected) exposure to COVID-19
CPT/HCPCS: 36415; 80053; 80307; 81001; 82947; 83735; 85025; 87086; 87635; 99285

== ENCOUNTER 2020-12-03 13:35 | Outpatient (REF) | payer MEDICARE, SELFPAY ==
--- NOTE | ~2020-12-03 | MM_ITS ---
EXAMINATION: MM DIAGNOSTIC DIGITAL BREAST TOMOSYNTHESIS, LEFT CLINICAL INFORMATION: Prior history bilateral breast cancer, most recently left 2018 for mass, no calcification. Lumpectomy 11/20/2017 (clear margins, 1 LN with metastatic disease). Left excisional biopsy for calcifications upper outer left breast 03/18/2019 (fat necrosis, calcifications, and chronic inflammation). Short interval follow-up remaining calcifications. COMPARISON: Mammography: 05/18/2020, needle localization 03/18/2019, mammography 02/21/2019, needle localization 11/20/2017, mammography 11/01/2017 TECHNIQUE: Digital breast tomosynthesis is performed in both the craniocaudal and mediolateral oblique views along with computer-aided detection (CAD). Synthesized 2D images are generated from the tomosynthesis. Additional views are obtained: Exaggerated CC, magnification CC x2, magnification ML FINDINGS: The breasts are heterogeneously dense, which may obscure small masses (ACR BI-RADS breast composition Category c). There are postsurgical changes with reduced breast size and scarring. Smooth skin thickening again seen. There are segmental short linear calcifications again noted posterior outer left breast, not part of the recent lumpectomy. They appear slightly coarser on current exam. They are increased in number since 2018. Some calcifications may be vascular. Will reassess at time of annual bilateral mammography due in 6 months. Results are provided to the patient at time of visit by the technologist. MM/MM tomosynthesis diagnostic LT IMPRESSION: Postsurgical changes. Segmental short linear calcifications again noted posterior upper left breast, slightly coarser, some possibly vascular. ASSESSMENT: BI-RADS 3: Probably Benign RECOMMENDATION: Magnification views left breast calcifications at time of annual bilateral mammography, due in 6 months. This patient's information was entered into a reminder system with a target due date for their next mammogram.
== END 2020-12-03 13:36 | disposition home or self-care (01) ==
LOC: HO.MAMMO 13:35
PROVIDERS: Visit Provider Family Medicine
DX: R92.1 Mammographic calcification found on diagnostic imaging of breast (principal)
CPT/HCPCS: 77061; 77065

== ENCOUNTER → 2021-02-15 13:21 | Outpatient (REF) | payer MEDICARE, SELFPAY ==
--- NOTE | 2021-02-15 13:27 | ECG_ITS ---
Hook-up date: 2021-02-15 13:35:00 Duration: 24:23:00 Test Indications: dizziness Medications: [id number] QRS complexes * Ventricular ectopics which represent % of total QRS comp. 2 Supraventricular ectopics which represent <1 % of total QRS comp. * Paced QRS complexs which represent % of total QRS comp. VENTRICULAR ECTOPY * Isolated * Bigeminal Cycles * Couplets * Runs * Beats in Runs * Beats LONGEST at * BPM at :: -- * Beats FASTEST at * BPM at :: -- SUPRAVENTRICULAR ECTOPY 2 Isolated 0 Couplets 0 Runs 0 Beats in Runs * Beats LONGEST at * BPM at :: -- * Beats FASTEST at * BPM at :: -- HEART RATES 69 MIN at 21:19:00 2021-02-15 82 AVG 138 MAX at 11:59:40 2021-02-16 LONGEST RR 1.0080 secs at 01:46:04 2021-02-16 S-T LEVELS Channel 1 - 128 mm at 13:35:00 2021-02-15 - 128 mm at 13:35:00 2021-02-15 Channel 2 - 128 mm at 13:35:00 2021-02-15 - 128 mm at 13:35:00 2021-02-15 Channel 3 - 128 mm at 03:25:41 -- - 128 mm at 03:25:41 Basic rhythm Normal sinus rhythm No long pause or profound bradycardia No dangerous dysrhythm periods Patient did not report any symptoms in the diary Referred By: Crystal Rosario Overread By: LEONORA ROJAS MD
== END ==
LOC: HO.CARD 13:21
PROVIDERS: Visit Provider Family Medicine
DX: R42 Dizziness and giddiness (principal)
CPT/HCPCS: 93225; 93226

== ENCOUNTER → 2021-03-26 10:35 | Outpatient (BNVA) | payer MEDICARE, SELFPAY | PROVIDERS: PCP Internal Medicine; Visit Provider Internal Medicine Endocrinology, Diabetes & Metabolism | DX: E11.65 Type 2 diabetes mellitus with hyperglycemia (principal) | CPT/HCPCS: 82947; 83036; 99212 ==

== ENCOUNTER 2021-06-18 14:03 | Outpatient (REF) | payer OTHER, SELFPAY ==
--- NOTE | ~2021-06-18 | MM_ITS ---
EXAMINATION: MM DIAGNOSTIC DIGITAL BREAST TOMOSYNTHESIS, BILATERAL CLINICAL INFORMATION: Left breast 6 month follow-up for calcifications. Yearly right breast study. Status post bilateral breast cancer and lumpectomies. COMPARISON: Mammography: 12/03/2020 and studies dating back to 11/22/2013. TECHNIQUE: Digital breast tomosynthesis is performed in both the craniocaudal and mediolateral oblique views along with computer-aided detection (CAD). Synthesized 2D images are generated from the tomosynthesis. Spot magnification views of the left breast performed in craniocaudal and 90 degree mediolateral views. FINDINGS: The breasts are heterogeneously dense, which may obscure small masses (ACR BI-RADS breast composition Category c). There is motion artifact on left breast craniocaudal view and patient left before a repeat study could be performed or I could speak with the patient about recommendations. There are stable post lumpectomy and radiation therapy changes within both breasts. Dystrophic calcifications are seen throughout the right breast. There are a few dystrophic calcifications seen about the left surgical bed. About the deep superior aspect of the left breast distant from the lumpectomy site there are again noted to be multiple calcifications many of which are linear in configuration with no significant change in appearance since study of 05/18/2020. Would continue with another 6 month follow-up study of the left breast with spot magnification views as long as the repeat left breast craniocaudal view is stable. MM/MM tomosynthesis diagnostic BI IMPRESSION: Technologist will call back for left spot magnification craniocaudal view due to patient leaving prior to examination being complete. ASSESSMENT: BI-RADS 0: Incomplete - Need Additional Imaging Evaluation RECOMMENDATION: Repeat left breast spot magnification craniocaudal view.
== END 2021-06-18 14:04 | disposition home or self-care (01) ==
LOC: HO.MAMMO 14:03
PROVIDERS: PCP Family Medicine; Visit Provider Family Medicine
DX: R92.1 Mammographic calcification found on diagnostic imaging of breast (principal)
CPT/HCPCS: 77062; 77066

== ENCOUNTER 2021-06-25 10:27 | Outpatient (REF) | payer OTHER, SELFPAY ==
--- NOTE | ~2021-06-25 | MM_ITS ---
EXAMINATION: MM DIAGNOSTIC DIGITAL MAMMOGRAPHY, LEFT CLINICAL INFORMATION: Technical recall, follow-up probable benign calcifications left breast. COMPARISON: Mammography: 06/18/2021, 12/03/2020, 05/18/2020, 03/18/2019, 02/21/2019,, 11/01/2017. TECHNIQUE: Digital mammography is performed in the following views: Magnification CC x2. FINDINGS: The breasts are heterogeneously dense, which may obscure small masses (ACR BI-RADS breast composition Category c). The additional CC and magnification views are compared with prior exams including recent diagnostic study. The segmental short linear calcifications posterior upper left breast, not part of the lumpectomy site, appear stable from recent diagnostic studies. Results are provided to the patient at time of visit by the technologist. Calcifications may be reassessed again at next bilateral annual mammography to conclude long-term surveillance. MM/MM added views LT IMPRESSION: Left breast calcifications for follow-up are similar to recent prior diagnostic studies. ASSESSMENT: BI-RADS 3: Probably Benign RECOMMENDATION: Diagnostic mammography at time of next annual exam, due in 12 months. This patient's information was entered into a reminder system with a target due date for their next mammogram.
== END 2021-06-25 10:28 | disposition home or self-care (01) ==
LOC: HO.MAMMO 10:27
PROVIDERS: PCP Family Medicine; Visit Provider Family Medicine
DX: Z13.89 Encounter for screening for other disorder (principal)
CPT/HCPCS: 77065

== ENCOUNTER → 2021-10-07 14:42 | Outpatient (BNVA) | payer OTHER, SELFPAY | PROVIDERS: PCP Family Medicine; Visit Provider Surgery | DX: K43.2 Incisional hernia without obstruction or gangrene (principal) | CPT/HCPCS: 99212 ==

== ENCOUNTER 2021-10-25 13:09 | Outpatient (REF) | payer OTHER, SELFPAY ==
--- NOTE | ~2021-10-25 | CT_ITS ---
EXAMINATION: CT ABDOMEN AND PELVIS WITHOUT CONTRAST CLINICAL INFORMATION: Incisional hernia without obstruction or gangrene COMPARISON: None TECHNIQUE: Multidetector volumetric imaging was performed from the superior aspect of the liver through the pubic symphysis. Sagittal and coronal reformatted images were obtained on the technologist's workstation. This CT examination was performed using dose optimization techniques as appropriate, variously including the following: *Automated exposure control *Adjustment of mA and/or kV according to patient size (this includes techniques or standardized protocols for targeted exams where dose is matched to indication/reason for exam; i.e. extremities or head) *Use of iterative reconstruction technique DLP: 345 mGy-cm FINDINGS: LUNG BASES: The lung bases are clear. The heart size is normal. LIVER, GALLBLADDER, AND BILIARY TREE: The liver is normal in size, shape, and attenuation. No focal hepatic lesion or biliary ductal dilatation is present. The gallbladder has been surgically removed. PANCREAS: Unremarkable. SPLEEN: Unremarkable. ADRENAL GLANDS: Unremarkable. KIDNEYS AND URETERS: The kidneys are normal in size, shape, and attenuation. No hydronephrosis, hydroureter, or calculi seen. No perinephric stranding. BLADDER: Unremarkable. GASTROINTESTINAL TRACT: There is scattered stool and gas seen throughout the colon without distention. Oral contrast opacified small bowel loops are normal caliber. Appendix is not seen. No inflammatory process, free air or free fluid seen. Small calcified nodule is seen in the left lower quadrant axial image 54/3 and in left pelvis on axial image 66/3 question phleboliths. ABDOMINAL WALL: There is small left paraumbilical hernia with a 9 mm neck containing intraperitoneal fat. There is several small nodules in the anterior abdominal wall likely small injection granulomas. LYMPH NODES: Normal. VASCULAR: There is arthroscopic calcification of abdominal aorta without aneurysmal dilatation. PELVIC VISCERA: The uterus is anteverted and appears unremarkable. Exophytic to the left fundus is a lesion with calcified choi question phlebolith versus exophytic fibroid. There is no free fluid or free air. OSSEOUS STRUCTURES: Mild ventral spondylosis seen mid dorsal spine. There is superior endplate Schmorl's node L4 vertebra. No aggressive lytic or sclerotic process seen. There is moderate ventral spondylosis lower dorsal spine. CT/CT abdomen pelvis wo IV con IMPRESSION: Small left para umbilical hernia containing intraperitoneal fat. Mild constipation without obstruction. Cholecystectomy. Fleischner guidelines were followed.
== END 2021-10-25 13:10 | disposition home or self-care (01) ==
LOC: HO.CT 13:09
PROVIDERS: PCP Family Medicine; Visit Provider Surgery
DX: K43.2 Incisional hernia without obstruction or gangrene (principal)
CPT/HCPCS: 74176

== ENCOUNTER → 2021-12-24 08:49 | Outpatient (BNVA) | payer OTHER, SELFPAY | PROVIDERS: PCP Family Medicine; Visit Provider Surgery | DX: K43.2 Incisional hernia without obstruction or gangrene (principal) | CPT/HCPCS: 99212 ==

== ENCOUNTER 2022-01-03 13:00 | Outpatient (REF) | payer OTHER, SELFPAY | END 2022-01-03 13:01 | disposition home or self-care (01) | LOC: HO.MAMMO 13:00 | PROVIDERS: PCP Family Medicine; Visit Provider Family Medicine | DX: Z13.89 Encounter for screening for other disorder (principal) ==

== ENCOUNTER 2022-01-14 07:57 | Outpatient (REF) | payer OTHER, SELFPAY ==
--- NOTE | ~2022-01-14 | FL_ITS ---
EXAMINATION: FL BARIUM SWALLOW CLINICAL INFORMATION: Dysphagia COMPARISON: None TECHNIQUE: Barium swallow examination is performed using fluoroscopic evaluation in addition to multiple fluoroscopic spot views. The patient is imaged both upright and prone and using thin barium sulfate. Fluoroscopy time: 1.2 minutes DAP: 5.994 Gycm2 Images: 113 FINDINGS: There is normal oral bolus control and transfer. Normal posterior tilt of the epiglottis with elevation of the hyoid. No cricopharyngeal abnormality. A 13 mm barium tablet was swallowed. There was a mild delay in transit at the level of the midesophagus before passing distally. This again has a delay at the gastroesophageal junction. No obstruction to passage. The esophagus was normal in course, caliber, and contour. There was normal distensibility with no fixed segment of narrowing. No focal mucosal abnormality was identified. Moderate esophageal dysmotility was observed. Contrast passed freely across the gastroesophageal junction into the stomach. Small hiatal hernia. No gastroesophageal reflux was observed. FL/FL barium swallow IMPRESSION: Small hiatal hernia. Moderate esophageal dysmotility.
== END 2022-01-14 07:58 | disposition home or self-care (01) ==
LOC: HO.XRAY 07:57
PROVIDERS: Visit Provider Family Medicine
DX: R13.10 Dysphagia, unspecified (principal)
CPT/HCPCS: 74220

== ENCOUNTER 2022-01-17 06:32 | Day surgery (SDC) | payer OTHER, SELFPAY ==
[2022-01-11 10:34] VITALS: BMI 26.2
--- NOTE | 2022-01-14 12:53 | HO.ANESPROP2 ---
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 (Acute) Diabetes type 2, uncontrolled (Acute) Vitamin D deficiency (Acute) HLD (hyperlipidemia) (Acute) HTN (hypertension) (Acute) T2DM (type 2 diabetes mellitus) (Acute) Invasive ductal carcinoma of breast (Acute) Past Medical History Medical History Barretts esophagus Bipolar disorder Dementia Diabetes type 2, uncontrolled Hepatitis C HLD (hyperlipidemia) HTN (hypertension) Hypertension Invasive ductal carcinoma of breast USP (current) use of insulin Rheumatoid arthritis Sleep apnea T2DM (type 2 diabetes mellitus) Vitamin D deficiency Family History Family History Daughter No problems noted. Father No problems noted. Mother No problems noted. Surgical History Surgical History H/O colonoscopy H/O parotidectomy H/O ventral hernia repair History of cholecystectomy History of esophagogastroduodenoscopy (EGD) History of pubovaginal sling Hx of excision of mass Status post left breast lumpectomy Status post right breast lumpectomy Social History Social History Alcohol intake: never Patient Tobacco Use Status: Never used Tobacco Second Hand Smoke Exposure: No Use of substances other than those prescribed or required for medical reasons: No Are you DNR?: No Advance Directives: Yes Advance Directives Information Provided: No Advance Directives on File: Yes Advance Directives Date on File: 09/23/20 Current occupational status: unemployed Current occupation: right handed Meds Allergies Allergy/AdvReac Type Severity Reaction Status Date / Time codeine [Codeine] Allergy Mild UPSET Verified 12/24/21 09:02 STOMACH, visual impairment DEQUAN Inhibitors AdvReac Intermediate COUGH Verified 12/24/21 09:02 [DEQUAN INHIBITORS] hydrochlorothiazide AdvReac Intermediate HYPONATREMI Verified 12/24/21 09:02 [HYDROCHLOROTHIAZIDE] A Home Medications Medication Instructions Recorded Confirmed Last Taken Type cholecalciferol (vitamin D3) 25 25 mcg PO DAILY@1800 09/17/20 01/11/22 Unknown History mcg (1,000 unit) tablet amlodipine 5 mg tablet 1 tab PO QPM 09/23/20 01/11/22 Unknown History calcium carbonate 500 mg calcium 1 tab PO BID 09/23/20 01/11/22 Unknown History (1,250 mg) tablet (Oyster Shell Calcium 500) clonazepam 0.5 mg tablet 1 tab PO BID PRN Anxiety 09/23/20 01/11/22 Unknown History cyanocobalamin (vitamin B-12) 1 tab PO QAM 09/23/20 01/11/22 Unknown History 1,000 mcg tablet losartan 25 mg tablet 1 tab PO QAM 09/23/20 01/11/22 Unknown History metoprolol tartrate 25 mg tablet 25 mg PO BID 03/26/21 01/11/22 Unknown History mirtazapine 15 mg tablet 15 mg PO BEDTIME 03/26/21 01/11/22 Unknown History olanzapine 5 mg tablet 5 mg PO BID 12/24/21 01/11/22 Unknown History Exam Exam Date and Time: January 14, 2022 1253 Height,Weight and Vital Signs: Height 4 ft 9 in Weight 54.885 kg Narrative Narrative: 24 hour Holter 02/2021 Basic rhythm Normal sinus rhythm No long pause or profound bradycardia No dangerous dysrhythm periods Patient did not report any symptoms in the diary Assessment and Plan Assessment Anesthesia Assessment: Chart Reviewed Documented by User: Ariella Hughes MD 01/17/22 08:26 PMFSH Active Problems Active Problems: All Active Problems (Updated 01/17/22 @ 8:01am by Ariella Hughes MD) Obstructive sleep apnea (Acute) Triple negative malignant neoplasm of breast (Acute) Breast pain, right (Acute) Incisional hernia (Acute) Bipolar disorder (Acute) USP (current) use of insulin (Acute) Diabetes type 2, uncontrolled (Acute) Vitamin D deficiency (Acute) HLD (hyperlipidemia) (Acute) HTN (hypertension) (Acute) Invasive ductal carcinoma of breast (Acute) Patient not able to give or confirm any history Past Medical History Medical History Barretts esophagus Bipolar disorder Dementia Diabetes type 2, uncontrolled Hepatitis C HLD (hyperlipidemia) HTN (hypertension) Hypertension Invasive ductal carcinoma of breast 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 Father No problems noted. Mother No problems noted. Family history of problems with anesthesia: No Surgical History Surgical History H/O colonoscopy H/O parotidectomy H/O ventral hernia repair History of cholecystectomy History of esophagogastroduodenoscopy (EGD) History of pubovaginal sling Hx of excision of mass Status post left breast lumpectomy Status post right breast lumpectomy History of Problems with Anesthesia: No Social History Social History Alcohol intake: never Patient Tobacco Use Status: Never used Tobacco Second Hand Smoke Exposure: No Use of substances other than those prescribed or required for medical reasons: No Are you DNR?: No Advance Directives: Yes Advance Directives Information Provided: No Advance Directives on File: Yes Advance Directives Date on File: 09/23/20 Current occupational status: unemployed Current occupation: right handed Meds Allergies Allergy/AdvReac Type Severity Reaction Status Date / Time codeine [Codeine] Allergy Mild UPSET Verified 12/24/21 09:02 STOMACH, visual impairment DEQUAN Inhibitors AdvReac Intermediate COUGH Verified 12/24/21 09:02 [DEQUAN INHIBITORS] hydrochlorothiazide AdvReac Intermediate HYPONATREMI Verified 12/24/21 09:02 [HYDROCHLOROTHIAZIDE] A Home Medications Medication Instructions Recorded Confirmed Last Taken Type cholecalciferol (vitamin D3) 25 25 mcg PO DAILY@1800 09/17/20 01/11/22 Unknown History mcg (1,000 unit) tablet amlodipine 5 mg tablet 1 tab PO QPM 09/23/20 01/11/22 Unknown History calcium carbonate 500 mg calcium 1 tab PO BID 09/23/20 01/11/22 Unknown History (1,250 mg) tablet (Oyster Shell Calcium 500) clonazepam 0.5 mg tablet 1 tab PO BID PRN Anxiety 09/23/20 01/11/22 Unknown History cyanocobalamin (vitamin B-12) 1 tab PO QAM 09/23/20 01/11/22 Unknown History 1,000 mcg tablet losartan 25 mg tablet 1 tab PO QAM 09/23/20 01/11/22 Unknown History metoprolol tartrate 25 mg tablet 25 mg PO BID 03/26/21 01/11/22 Unknown History mirtazapine 15 mg tablet 15 mg PO BEDTIME 03/26/21 01/11/22 Unknown History olanzapine 5 mg tablet 5 mg PO BID 12/24/21 01/11/22 Unknown History Exam Narrative Narrative: 24 hour Holter 02/2021 Basic rhythm Normal sinus rhythm No long pause or profound bradycardia No dangerous dysrhythm periods Patient did not report any symptoms in the diary EKG 01/17/22 NSR.70 Minimal voltage criteria for LVH, maybe normal variant. Inferior infarct, age undetermined. Inferior [place] present on ekg from 09/2020 Airway Mallampati Class: III TM Dist: >3cm Neck ROM: Full Loose/Missing/Broken Teeth: Yes (No teeth top. Few teeth bottom front. Denies broken or loose) Heart: RRR Lungs: CTAB. Diminished Assessment and Plan Assessment Anesthesia Assessment: Anesthesia Plan Discussed (Discussed with daughter and patient but patient with dementia ) Final Anesthetic Review Family History of Problems with Anesthesia: No History of Problems with Anesthesia: No NPO: Yes ASA Class: III Final Preanesthetic Review: No Changes in Pt Med Stat, Meds/Allgs Chart Reviewed, Consent Obtained/Reviewed and Anes Risks/Benef Reviewed Patient Risk: Intermediate Procedure Risk: Intermediate Assessment/Block/Sedation in SS: Assess/Block/Sedation-SS Anesthetic Plan Anesthetic Plan: GA Disposition: Standard PACU
[2022-01-17] VITALS (7 sets, daily range): BP systolic 107–128; BP diastolic 32–54; PULSE 74–94; RESP 14–17; TEMP 36.2–36.4; O2SAT 96–100
--- NOTE | 2022-01-17 | ECG_ITS ---
Test Reason : HTN DM Blood Pressure : / mmHG Vent. Rate : 070 BPM Atrial Rate : 070 BPM P-R Int : 122 ms QRS Dur : 078 ms QT Int : 388 ms P-R-T Axes : 056 -05 009 degrees QTc Int : 419 ms Normal sinus rhythm Minimal voltage criteria for LVH, may be normal variant ( R in aVL ) Inferior infarct , age undetermined Abnormal ECG When compared with ECG of 17-SEP-2020 08:36, Vent. rate has decreased BY 41 BPM Referred By: Ruth Gifford Electronically Signed By:HILDA OQUENDO
[2022-01-17 07:25] LABS: Glucose, Whole Blood 95 mg/dL (60-115)
[2022-01-17] MEDS: Lactated Ringers 1,000 ML 100 ML IVCONT (07:41)
[2022-01-17 07:51] LABS: Anion Gap 14 (12-20); Blood Urea Nitrogen 13 mg/dL (9-16); Calcium 9.3 mg/dL (8.4-10.2); Carbon Dioxide 23 mmol/L (22-29); Chloride 106 mmol/L (96-108); Creatinine Clr Calc Pharmacy 43.4; Estimated Glomerular Filt Rate > 60; Glucose Fasting 96 mg/dL (60-99); Potassium 4.3 mmol/L (3.3-5.1); Sodium 139 mmol/L (135-145)
[2022-01-17 08:02] LABS: Hematocrit 38.3 % (37.0-47.0); Hemoglobin 13.2 g/dl (12.0-16.0); Mean Corpuscular HGB Conc 34.5 g/dl (31.0-35.0); Mean Corpuscular Hemoglobin 31.7 pg (27.0-33.0); Mean Corpuscular Volume 91.8 fL (80.0-98.0); Mean Platelet Volume 10.4 fL (9.4-12.3); Platelet Count 186 X10*3/uL (160-400); Red Blood Count 4.17 X10*6/uL (4.20-5.50); Red Cell Distribution Width 12.7 % (11.0-16.0); White Blood Count 5.8 X10*3/uL (4.8-10.8)
--- NOTE | 2022-01-17 10:06 | P.OP_ITS ---
Operative Note Operative Note Date of Service: 01/17/22 Narrative: Preoperative diagnosis:Incisional hernia Postoperative diagnosis: Same Procedure: Repair of incisional hernia with mesh Surgeon: Adrian Barnes MD Station Mechanic Helper: Neyda Weber PA-C, Luz Shepherd Anesthesia: General ET Indications for procedure: 71-year-old female patient with a palpable lump located just above the umbilicus at the site of previous incision. Findings are suggestive of a ventral/incisional hernia. Operative findings: Incisional hernia left abdomen with a defect measuring approximately 1.5 cm repaired with a 4.3 cm round Ventralex mesh Specimen: Hernia contents/preperitoneal fat Estimated blood loss: 5 mL Complications: None Procedure details: Patient was brought to the OR placed in a supine position. After administering general anesthesia the patient's abdomen was prepped with ChloraPrep and draped in a sterile fashion. A surgical time-out was called the consent confirmed. Patient received preoperative antibiotics and Venodyne boots were in place. Local anesthesia consisting of 0.5% Sensorcaine with epinephrine was then infiltrated over the midline just above the umbilicus. Incision was then made in the midline and carried out through subcutaneous tissue, down to the hernia sac. The hernia was then dissected free from the surrounding subcutaneous tissue down to the fascial defect. The fascial defect was noted to be approximately 1.5 cm in diameter. The hernia contents contained preperitoneal fat. This was excised using electrocautery remnants were return to the preperitoneal space. A large a preperitoneal space was then performed using a open Ray-Diomedes sponge and electrocautery. A 4.3 cm round Ventralex mesh was then obtained. This was then deployed within the preperitoneal space and secured in 4 quadrants using 1 Tycron sutures. Fascia was then closed over the mesh using [id number] 1 Tycron sutures. Wounds were then irrigated with saline solution and suctioned dry. Deep subcutaneous tissue was then closed using interrupted 3-0 Polysorb sutures. Dermis was reapproximated using interrupted 3-0 Polysorb sutures. Skin was closed using a running subcuticular 4-0 Polysorb suture. Steri-Strips, 2 x 2 gauze and Tegaderm were then applied. Patient tolerated the procedure well. Sponge, instrument, and needle counts reported as correct. Patient was transferred to PACU in stable condition.
== END 2022-01-17 11:49 | disposition home or self-care (01) ==
PROVIDERS: Nurse Practitioner; PCP Family Medicine; Visit Provider Surgery
PROC: (CPT 49560; principal; 2022-01-17 08:40)
DX: K43.2 Incisional hernia without obstruction or gangrene (principal); I10 Essential (primary) hypertension; E11.9 Type 2 diabetes mellitus without complications; R94.31 Abnormal electrocardiogram [ECG] [EKG]; F03.90 Unspecified dementia, unspecified severity, without behavioral disturbance, psychotic disturbance, mood disturbance, and anxiety; Z79.899 Other long term (current) drug therapy; Z88.5 Allergy status to narcotic agent; Z88.8 Allergy status to other drugs, medicaments and biological substances
CPT/HCPCS: 49560; 49568; 36415; 80048; 82947; 85027; 88302; 93005; C1781; J0690; J3010

== ENCOUNTER → 2022-02-01 14:25 | Outpatient (BNVA) | payer OTHER, SELFPAY | PROVIDERS: PCP Family Medicine; Visit Provider Surgery | DX: Z13.89 Encounter for screening for other disorder (principal) ==

== ENCOUNTER → 2022-02-25 09:38 | Outpatient (BNVA) | payer OTHER, SELFPAY | PROVIDERS: PCP Family Medicine; Referring Provider Family Medicine; Visit Provider Surgery | DX: Z13.89 Encounter for screening for other disorder (principal) ==

== ENCOUNTER → 2022-04-01 11:52 | Outpatient (BNVA) | payer OTHER, SELFPAY | PROVIDERS: PCP Family Medicine; Visit Provider Internal Medicine | DX: R13.10 Dysphagia, unspecified (principal); K22.4 Dyskinesia of esophagus | CPT/HCPCS: 99202 ==

== ENCOUNTER 2022-07-01 14:42 | Outpatient (REF) | payer OTHER, SELFPAY ==
--- NOTE | ~2022-07-01 | MM_ITS ---
EXAMINATION: MM DIAGNOSTIC DIGITAL BREAST TOMOSYNTHESIS, BILATERAL CLINICAL INFORMATION: Status post bilateral lumpectomies. One-year followup calcifications. COMPARISON: Mammography: 06/25/2021 and studies dating back to 12/05/2014. TECHNIQUE: Digital breast tomosynthesis is performed in both the craniocaudal and mediolateral oblique views along with computer-aided detection (CAD). Synthesized 2D images are generated from the tomosynthesis. Additional left breast spot magnification views performed in craniocaudal, 90 degree mediolateral, and exaggerated craniocaudal projections. FINDINGS: The breasts are heterogeneously dense, which may obscure small masses (ACR BI-RADS breast composition Category c). There is stable postsurgical change seen bilaterally with dystrophic calcifications. The more linear calcifications about the upper outer aspect of the left breast appear stable. Recommend 1 year followup diagnostic mammogram with magnification views of the left breast. Results are provided to the patient at time of visit by the technologist. MM/MM tomosynthesis diagnostic BI IMPRESSION: There are no significant changes from prior study. Bilateral postsurgical change and stable appearance of calcifications. ASSESSMENT: BI-RADS 3: Probably Benign RECOMMENDATION: Diagnostic mammography at time of next annual exam, due in 12 months. This patient's information was entered into a reminder system with a target due date for their next mammogram.
== END 2022-07-01 14:43 | disposition home or self-care (01) ==
LOC: HO.MAMMO 14:42
PROVIDERS: PCP Family Medicine; Visit Provider Family Medicine
DX: R92.1 Mammographic calcification found on diagnostic imaging of breast (principal)
CPT/HCPCS: 77062; 77066

== ENCOUNTER 2022-08-19 08:54 | Outpatient (REF) | payer OTHER, SELFPAY ==
[2022-08-19 14:24] LABS: MANUAL DIFF FLAG NO
[2022-08-19 14:36] LABS: Basophils Percent Auto 0.4 % (0-2); Eosinophils Absolute Auto 0.1 X10*3/uL (0.0-0.4); Eosinophils Percent Auto 0.9 % (0-4); Hematocrit 40.4 % (37.0-47.0); Hemoglobin 13.7 g/dl (12.0-16.0); Imm Gran Abs Auto 0.01 X10*3/uL (0.00-0.03); Imm Gran Pct Auto 0.2 % (0.0-0.4); Lymphocytes Absolute Auto 1.4 X10*3/uL (1.2-4.9); Lymphocytes Percent Auto 26.2 % (20-40); Mean Corpuscular HGB Conc 33.9 g/dl (31.0-35.0); Mean Corpuscular Hemoglobin 31.9 pg (27.0-33.0); Mean Platelet Volume 10.7 fL (9.4-12.3); Monocytes Absolute Auto 0.5 X10*3/uL (0.1-1.2); Monocytes Percent Auto 8.5 % (2-11); Neutrophils Absolute Auto 3.5 x10*3/uL (2.0-8.3); Neutrophils Percent Auto 63.8 % (45-73); Platelet Count 199 X10*3/uL (160-400); Red Cell Distribution Width 12.6 % (11.0-16.0); White Blood Count 5.4 X10*3/uL (4.8-10.8)
[2022-08-19 15:52] LABS: Alanine Aminotransferase 26 U/L (0-31); Albumin Level 3.9 g/dL (3.5-5.0); Alkaline Phosphatase 89 U/L (39-117); Anion Gap 13 (12-20); Aspartate Amino Transferase 25 U/L (5-31); Blood Urea Nitrogen 9 mg/dL (9-16); Calcium 9.7 mg/dL (8.4-10.2); Carbon Dioxide 26 mmol/L (22-29); Chloride 107 mmol/L (96-108); Cholesterol 120 mg/dL; Estimated Glomerular Filt Rate > 60; Glucose Fasting 72 mg/dL (60-99); HDL Cholesterol 45 mg/dL; LDL Cholesterol Calculated 62 mg/dl; Potassium 4.2 mmol/L (3.3-5.1); Sodium 142 mmol/L (135-145); Total Protein 7.2 g/dL (6.5-8.0); Triglycerides 68 mg/dL
[2022-08-19 16:32] LABS: Bilirubin Total 0.3 mg/dL (0.0-1.0)
== END 2022-08-19 08:55 | disposition home or self-care (01) ==
LOC: HO.CHCLDS 08:54
PROVIDERS: Visit Provider Family Medicine
DX: E11.65 Type 2 diabetes mellitus with hyperglycemia (principal); Z79.4 Long term (current) use of insulin
CPT/HCPCS: 36415; 80053; 80061; 85025

== ENCOUNTER 2022-09-10 21:40 | Emergency (ER) | payer OTHER, SELFPAY ==
[2022-09-10 21:53] VITALS: BP 154/65; PULSE 112; RESP 18; TEMP 36.6; O2SAT 97; BMI 25.2
== END 2022-09-11 03:31 | disposition left against medical advice (07) ==
LOC: HO.ED 09-11 02:49
PROVIDERS: Emergency Provider Emergency Medicine; PCP Family Medicine
DX: I10 Essential (primary) hypertension (principal)
CPT/HCPCS: 99281

== ENCOUNTER 2022-09-16 10:56 | Outpatient (AMB) | payer OTHER, SELFPAY ==
--- NOTE | 2022-09-16 11:02 | MHC.OFFVIS ---
Intake Vital Signs 09/16/22 11:11 Height 4 ft 11 in Weight 124 lb 6 oz BMI 25.1 BP 133/62 Blood Pressure Location Lt brachial Position Sitting Pulse 95 Intake Visit Reasons: 6 mth follow up incisional hernia Intake Note: Patient is seen in office for 6 month follow up visit, breast exam. Patient c/o: denies any concerns at the time of visit Predictive Maintenance Specialist Required: No Accompanied by: Self / Same As Patient Allergies codeine [Codeine] Allergy (Mild, Verified 09/16/22 11:11) UPSET STOMACH, visual impairment DEQUAN Inhibitors [DEQUAN INHIBITORS] Adverse Reaction (Intermediate, Verified 09/16/22 11:11) COUGH hydrochlorothiazide [HYDROCHLOROTHIAZIDE] Adverse Reaction (Intermediate, Verified 09/16/22 11:11) HYPONATREMIA HPI HPI Comments History of Present Illness Details Safia Barcenas is a 71 year old female patient of Dr. Alexander returning for followup breast examination.? She was initially evaluated on 10/31/2017 with a palpable breast mass on the left breast noted on physical examination. She has a previous history of right breast cancer and underwent lumpectomy, radiation and chemotherapy (1987). She noted the new lump in the left upper outer portion of the breast without skin redness, pain, nipple retraction or nipple discharge. She underwent a needle localized lumpectomy with sentinel node biopsy (11/20/2017). The pathology revealed: ? A. Left breast at 12 o'clock, needle biopsy: Invasive ductal carcinoma, MSBR grade 3, measuring at least 0.6 cm. ? B. [place] lymph node, left axillary: Lymph node with metastatic carcinoma (isolated tumor cells). ? Prognostic Indicator Studies: ? Estrogen Receptor: Negative ? Progesterone Receptor: Negative ? HER2 immunostain is non-reactive (0) ? She underwent a needle localized excisional biopsy of the left breast for a new area of microcalcification (03/18/2019) the pathology of which was benign. Today she denies any new breast symptoms on either side.? Her most recent mammogram dated 07/01/2022 revealed postsurgical changes in both breasts but no new suspicious findings. A diagnostic mammogram was recommended in 1 year (BI-RADS 3). FOR[facility]LY [facility] Medical History Barretts esophagus Bipolar disorder Dementia Diabetes type 2, uncontrolled Hepatitis C HLD (hyperlipidemia) HTN (hypertension) Hypertension Invasive ductal carcinoma of breast alf (current) use of insulin Rheumatoid arthritis Sleep apnea T2DM (type 2 diabetes mellitus) Vitamin D deficiency Surgical History H/O colonoscopy H/O parotidectomy H/O ventral hernia repair (01/17/22) History of cholecystectomy History of esophagogastroduodenoscopy (EGD) History of pubovaginal sling Hx of excision of mass Status post left breast lumpectomy Status post right breast lumpectomy Family History Daughter No problems noted. Father No problems noted. Mother No problems noted. Social History Alcohol intake: never Patient Tobacco Use Status: Never used Tobacco Second Hand Smoke Exposure: No Advance Directives Date on File: 09/23/20 Current occupational status: unemployed Current occupation: right handed Review of Systems Neuro Reports confusion Psych Reports confusion Physical Exam Vital Signs: Last Vital Signs Pulse 95 09/16/22 11:11 BP 133/62 09/16/22 11:11 BMI result Body Mass Index 25.1 Const General: confusion Orientation/consciousness: confusion Chest Other: Bilateral postoperative changes with loss of volume of the right breast compared to the left breast. There is thickening of the breast tissue related to radiation therapy as well. No new palpable masses noted on either side, no new skin changes. No enlarged lymph nodes are appreciated. Resp Effort & Inspection: normal respiratory effort, no audible wheezes, no cough and no respiratory distress GI Inspection: Yes normal to inspection Neuro General: confusion Assessment & Plan Assessment & Plan (1) Triple negative malignant neoplasm of breast: Code(s): C50.919 - Malignant neoplasm of unspecified site of unspecified female breast Plan 71-year-old female patient returning for breast cancer follow-up. Her dementia is worsening but she denies any new breast symptoms. Examination today revealed no new suspicious findings in her most recent mammogram of 07/01/2022 revealed no suspicious findings other than post therapy changes. A diagnostic mammogram was recommended in 1 year. She will follow up following this study for breast examination. Coding Level of Care Code Est Pt Level 3 (41220) Diagnoses Triple negative malignant neoplasm of breast C50.919
[2022-09-16 11:11] VITALS: BP 133/62; PULSE 95; BMI 25.1
== END 2022-09-16 11:41 | disposition home or self-care (01) ==
PROVIDERS: PCP Family Medicine; Visit Provider Surgery
DX: C50.912 Malignant neoplasm of unspecified site of left female breast (principal)
CPT/HCPCS: 99213

== ENCOUNTER → 2022-09-16 10:56 | Outpatient (BNVA) | payer OTHER, SELFPAY | PROVIDERS: PCP Family Medicine; Visit Provider Surgery | DX: C50.812 Malignant neoplasm of overlapping sites of left female breast (principal); Z17.1 Estrogen receptor negative status [ER-] | CPT/HCPCS: 99212 ==

== ENCOUNTER 2023-07-10 13:23 | Outpatient (REF) | payer OTHER, SELFPAY ==
--- NOTE | ~2023-07-10 | MM_ITS ---
EXAMINATION: MM DIAGNOSTIC DIGITAL BREAST TOMOSYNTHESIS, BILATERAL CLINICAL INFORMATION: Diagnostic for follow-up left breast calcifications. Patient due for bilateral screening. Prior history of bilateral breast cancer, most recently on the left in 2018. Left excisional biopsy for calcifications upper quadrant 20 1020 yielding fat necrosis, calcifications, and chronic inflammation. COMPARISON: Mammography: 07/01/2022, 06/18/2021, 12/03/2020, 05/18/2020 (BI-RADS 0), 03/18/2019, 02/21/2019,, 11/01/2017. TECHNIQUE: Digital breast tomosynthesis is performed in both the craniocaudal and mediolateral oblique views along with computer-aided detection (CAD). Synthesized 2D images are generated from the tomosynthesis. In addition, 2-D spot magnification left CC views x2, exaggerated lateral CC magnification views x4, and left mediolateral magnification view x1 were also obtained. Examination technically limited requiring 2 technologists to obtain best images possible. Exam interpreted in light of this limitation. FINDINGS: The breasts are heterogeneously dense, which may obscure small masses (ACR BI-RADS breast composition Category c). Stable post surgical changes are seen bilaterally without significant change. The right breast is extremely small with microcalcifications and a stable parenchymal pattern. The left breast is also somewhat small, and the calcifications remote from the lumpectomy site in the upper outer aspect which are short and linear have remained unchanged allowing for technical limitations since May 2020, and are hence benign, showing a 3 year stability. There are no suspicious features. There are no suspicious masses, new regions of architectural distortion, or developing asymmetries in either breast. There are stable dystrophic calcifications bilaterally. MM/MM tomosynthesis diagnostic BI IMPRESSION: -There are no findings suspicious for malignancy in either breast. -There are stable post therapeutic changes and benign findings in both breasts without significant change. -Linear segmental calcifications in the upper outer left breast have remained stable since May 2020, and are hence benign, showing stability over 3 years. No further follow-up warranted. -Recommend this patient return to routine annual screening to include both breasts. ASSESSMENT: BI-RADS BI-RADS 2 - Benign Findings RECOMMENDATION: 1 year F/U Results were provided to the patient at time of visit by the technologist. This patient's information was entered into a reminder system with a target due date for their next mammogram.
== END 2023-07-10 13:24 | disposition home or self-care (01) ==
LOC: HO.MAMMO 13:23
PROVIDERS: PCP Family Medicine; Visit Provider Family Medicine
DX: R92.1 Mammographic calcification found on diagnostic imaging of breast (principal)
CPT/HCPCS: 77062; 77066

== ENCOUNTER → 2023-07-10 14:00 | Outpatient (BNV) | payer OTHER, SELFPAY | PROVIDERS: PCP Family Medicine; Visit Provider Radiology Diagnostic Radiology | DX: R92.1 Mammographic calcification found on diagnostic imaging of breast (principal) | CPT/HCPCS: 77066; G0279 ==

== ENCOUNTER 2023-08-09 18:22 | Emergency (ER) | payer OTHER, SELFPAY ==
--- NOTE | ~2023-08-09 | XR_ITS ---
EXAMINATION: XR CHEST CLINICAL INFORMATION: Seizure COMPARISON: Prior chest September 2020 TECHNIQUE: Frontal view of the chest was obtained. FINDINGS: No significant abnormality is noted involving the heart, lungs, mediastinum, bony thorax or soft tissues. Spondylosis of the dorsal spine XR/XR chest 1V IMPRESSION: No acute disease
--- NOTE | ~2023-08-09 | CT_ITS ---
EXAMINATION: CT HEAD WITHOUT CONTRAST CLINICAL INFORMATION: Seizure. Fall. Pain. COMPARISON: CT head from 09/13/2020. TECHNIQUE: Contiguous axial imaging was performed from the skull base to vertex without intravenous administration of contrast. This CT examination was performed using dose optimization techniques as appropriate, variously including the following: *Automated exposure control. *Adjustment of mA and/or kV according to patient size (this includes techniques or standardized protocols for targeted exams where dose is matched to indication/reason for exam; i.e. extremities or head). *Use of iterative reconstruction technique. DLP: 600 mGy-cm FINDINGS: There is no evidence of acute intracranial hemorrhage or edematous territorial infarction. Valladares-white matter differentiation is preserved. Scattered and partially confluent hypoattenuation in the periventricular and deep white matter are consistent with moderate microangiopathy. Persistent cavum septum pellucidum et vergae. Otherwise, proportional prominence of the ventricles and sulcal spaces without evidence of obstructive hydrocephalus. Moderate expansion of the sella turcica with partial flattening of the pituitary gland. Normal positioning of the cerebellar tonsils. No abnormal mass effect or midline shift. No extra-axial fluid collections. Calcific catheters chronic disease of the intracranial internal carotid and vertebral arteries. No hyperdense vessel sign. No acute soft tissue or osseous abnormalities. Mild mucosal thickening of the paranasal sinuses. Moderate rightward nasal septal deviation with spurring. The mastoid air cells and middle ear cavities are clear. CT/CT head/brain wo IV con IMPRESSION: 1. No evidence of acute intracranial hemorrhage or edematous territorial infarction. 2. Moderate underlying microangiopathy and generalized cerebral volume loss. 3. No demonstrated abnormal mass effect on the noncontrast evaluation.
[2023-08-09 18:36] VITALS: BP 121/58; BP 124/46; BP 126/49; PULSE 114; PULSE 116; PULSE 120; RESP 22; RESP 24; TEMP 37.1; O2SAT 94; O2SAT 95; O2SAT 97; BMI 36.0
--- NOTE | 2023-08-09 19:06 | ECG_ITS ---
Test Reason : SEIZURE Blood Pressure : / mmHG Vent. Rate : 098 BPM Atrial Rate : 098 BPM P-R Int : 126 ms QRS Dur : 068 ms QT Int : 330 ms P-R-T Axes : 064 -05 021 degrees QTc Int : 421 ms Normal sinus rhythm Minimal voltage criteria for LVH, may be normal variant ( R in aVL ) Borderline ECG When compared with ECG of 17-JAN-2022 07:24, No significant change was found Referred By: Mark Kauffman Electronically Signed By:HILDA OQUENDO
[2023-08-09 19:26] LABS: MANUAL DIFF FLAG NO
[2023-08-09 19:32] LABS: Basophils Percent Auto 0.3 % (0-2); Eosinophils Percent Auto 0.2 % (0-4); Hematocrit 36.4 % (37.0-47.0); Hemoglobin 12.7 g/dl (12.0-16.0); Imm Gran Abs Auto 0.03 X10*3/uL (0.00-0.03); Imm Gran Pct Auto 0.3 % (0.0-0.4); Lymphocytes Percent Auto 9.6 % (20-40); Mean Corpuscular HGB Conc 34.9 g/dl (31.0-35.0); Mean Corpuscular Hemoglobin 32.4 pg (27.0-33.0); Mean Corpuscular Volume 92.9 fL (80.0-98.0); Mean Platelet Volume 10.1 fL (9.4-12.3); Monocytes Absolute Auto 0.8 X10*3/uL (0.1-1.2); Monocytes Percent Auto 7.6 % (2-11); Neutrophils Absolute Auto 8.3 x10*3/uL (2.0-8.3); Platelet Count 190 X10*3/uL (160-400); Red Blood Count 3.92 X10*6/uL (4.20-5.50); Red Cell Distribution Width 12.8 % (11.0-16.0); White Blood Count 10.1 X10*3/uL (4.8-10.8)
--- NOTE | 2023-08-09 19:54 | PC.NURSE ---
this rn assumed care of pt, pt resting in stretcher, seizure precautions in place. labs drawn, no acute distress noted.
[2023-08-09 20:00] VITALS: BP 115/51; PULSE 88; RESP 17; TEMP 37.2; O2SAT 97
--- NOTE | 2023-08-09 20:01 | ED.SEIZURE ---
HPI - Seizure General Chief Complaint: Seizure Stated Complaint: 3-5 min tonic clonic sz, dementia at baseline Time Seen by Provider: 08/09/23 19:04 Source: patient Mode of arrival: ambulatory History of Present Illness ED Provider: Daly ACEVEDO Narrative: 72-year-old female with past medical history of dementia, diabetes, breast cancer, hyperlipidemia, hypertension presenting for syncope. Patient's aide is at bedside and witnessed her have a 5 minute episode of syncope with seizure-like activity that she described as arm rigidity and shaking. Patient did fall however was caught by aide and lower to the ground. There was no head strike. After this episode patient came to and was at baseline with no physical complaints. Patient has never had this type of episode in the past and there has been no recent changes in meds. Patient has not had any complaints of fevers, chills, chest pain, , shortness of breath, abdominal pain, urinary symptom. MD complaint: possible seizure and syncope Onset (ago): minute(s) Description of Episode: loss of consciousness Duration of episode: 5 -: minutes(s) Trauma: No Seizure History: No Place: Home Possible Precipitating Event: none Related Data Home Medications ?Medication ?Instructions ?Recorded ?Confirmed cholecalciferol (vitamin D3) 25 25 mcg PO DAILY@1800 09/17/20 02/02/22 mcg (1,000 unit) tablet amlodipine 5 mg tablet 1 tab PO QPM 09/23/20 02/02/22 calcium carbonate (Oyster Shell 1 tab PO BID 09/23/20 02/02/22 Calcium 500) clonazepam 0.5 mg tablet 1 tab PO BID PRN Anxiety 09/23/20 02/02/22 cyanocobalamin (vitamin B-12) 1 tab PO QAM 09/23/20 02/02/22 1,000 mcg tablet losartan 25 mg tablet 1 tab PO QAM 09/23/20 02/02/22 metoprolol tartrate 25 mg tablet 25 mg PO BID 03/26/21 02/02/22 mirtazapine 15 mg tablet 15 mg PO BEDTIME 03/26/21 02/02/22 olanzapine 5 mg tablet 5 mg PO BID 12/24/21 02/02/22 Previous Rx's ?Medication ?Instructions ?Recorded oxycodone 5 mg tablet 5 mg PO Q6H PRN pain (scale score 01/17/22 7-10) #15 tabs ondansetron HCl 4 mg tablet 4 mg PO Q8H PRN nausea and 02/01/22 vomiting 5 days #20 tabs atorvastatin 40 mg tablet 40 mg PO BEDTIME #30 tabs 08/03/22 omeprazole 20 mg capsule,delayed 20 mg PO QAM #30 caps 04/04/23 release cephalexin 500 mg capsule 500 mg PO QID Urinary tract 08/09/23 infection 7 days #28 caps Allergies Allergy/AdvReac Type Severity Reaction Status Date / Time codeine [Codeine] Allergy Mild UPSET Verified 08/09/23 18:38 STOMACH, visual impairment DEQUAN Inhibitors AdvReac Intermediate COUGH Verified 08/09/23 18:38 [DEQUAN INHIBITORS] hydrochlorothiazide AdvReac Intermediate HYPONATREMI Verified 08/09/23 18:38 [HYDROCHLOROTHIAZIDE] [facility] Past Medical History Medical History Barretts esophagus Bipolar disorder Dementia Diabetes type 2, uncontrolled Hepatitis C HLD (hyperlipidemia) HTN (hypertension) Hypertension Invasive ductal carcinoma of breast [facility] (current) use of insulin Rheumatoid arthritis Sleep apnea T2DM (type 2 diabetes mellitus) Vitamin D deficiency Surgical History H/O colonoscopy H/O parotidectomy H/O ventral hernia repair (01/17/22) History of cholecystectomy History of esophagogastroduodenoscopy (EGD) History of pubovaginal sling Hx of excision of mass Status post left breast lumpectomy Status post right breast lumpectomy Family History Family History Daughter No problems noted. Father No problems noted. Mother No problems noted. Social History Social History Alcohol intake: never Patient Tobacco Use Status: Never used Tobacco Smoked in Last 30 Days: No Second Hand Smoke Exposure: No Use of substances other than those prescribed or required for medical reasons: No Advance Directives: Yes Advance Directives on File: Yes Advance Directives Date on File: 09/23/20 Do you have a plan to hurt others: No Plan Current occupational status: unemployed Current occupation: right handed Physical Exam Vital Signs: Vital Signs: Last Vital Signs Temp 98.1 F 08/10/23 00:25 Pulse 54 08/10/23 00:25 Resp 17 08/10/23 00:25 BP 134/54 L 08/10/23 00:25 Pulse Ox 98 08/10/23 00:25 O2 Del Method Room Air 08/10/23 00:25 BMI result Body Mass Index 36.0 Medications Administered Discontinued Medications Generic Name Dose Route Start Last Admin Trade Name Kishan PRN Reason Stop Dose Admin Sodium Chloride 1,000 mls @ 500 mls/hr 08/09/23 20:15 08/09/23 22:10 Ns IV 08/09/23 22:14 Infused .Q2H [facility] Infusion Sodium Chloride 1,000 mls @ 500 mls/hr 08/09/23 22:00 08/09/23 22:09 Ns IV 08/09/23 23:59 Not Given .Q2H [facility] Ceftriaxone Sodium 1 gm/ 50 mls @ 100 mls/hr 08/09/23 21:59 08/09/23 22:58 Sodium Chloride IV 08/09/23 22:28 Infused ONCE ONE Infusion Sodium Chloride 500 mls @ 500 mls/hr 08/09/23 22:15 08/10/23 00:01 Ns IV 08/09/23 23:14 Infused .Q1H [facility] Infusion Medical Decision Making Medical Decision Making MDM Narrative: - I have concerns for the following; syncope secondary to seizure, electrolyte/metabolic disturbance, underlying infection, symptomatic arrhythmia, brain mass - Less likely stroke/intracranial bleed, ACS - H&H stable; elevated lactic; negative ethanol - normal sinus rhythm EKG with no ischemic changes appreciated - CT head negative for large bleed or mass - chest x-ray negative for large consolidation - UA concerning for UTI - ceftriaxone and additional fluids ordered - repeat lactate improved - patient ambulated to bathroom with steady gait - patient's granddaughter is at bedside and I discussed today's findings with her and plan for antibiotics - I gave patient and her granddaughter follow-up instructions and return precautions. I sent a prescription for Keflex to her pharmacy - patient's granddaughter requested [facility]; I told her that this pharmacy may be close however she insisted on antibiotics being said there Differential Diagnosis Differential Diagnoses: The differential diagnosis associated with the presentation includes Seizure, stroke, underlying infection, intracranial bleed, brain mass, symptomatic arrhythmia, vasovagal episode, UTI Lab Data MDM Lab Attestation statement: I reviewed the patient's lab results. UA concerning for UTI 08/09/23 19:22 08/09/23 19:28 Labs: Lab Results 08/09/23 08/09/23 08/09/23 Range/Units 19:22 19:28 20:42 WBC 10.1 (4.8-10.8) X10*3/uL RBC 3.92 L (4.20-5.50) X10*6/uL Hgb 12.7 (12.0-16.0) g/dl Hct 36.4 L (37.0-47.0) % MCV 92.9 (80.0-98.0) fL MCH 32.4 (27.0-33.0) pg MCHC 34.9 (31.0-35.0) g/dl RDW 12.8 (11.0-16.0) % Plt Count 190 (160-400) X10*3/uL MPV 10.1 (9.4-12.3) fL Immature Gran % (Auto) 0.3 (0.0-0.4) % Neut % (Auto) 82.0 H (45-73) % Lymph % (Auto) 9.6 L (20-40) % [place] % (Auto) 7.6 (2-11) % Eos % (Auto) 0.2 (0-4) % Baso % (Auto) 0.3 (0-2) % Lymph # (Auto) 1.0 L (1.2-4.9) X10*3/uL [place] # (Auto) 0.8 (0.1-1.2) X10*3/uL Eos # (Auto) 0.0 (0.0-0.4) X10*3/uL Baso # (Auto) 0.0 (0.0-0.2) X10*3/uL Abs Immat Gran (auto) 0.03 (0.00-0.03) X10*3/uL Absolute Neuts (auto) 8.3 (2.0-8.3) x10*3/uL Absolute Nucleated RBC 0.000 (0.0-0.012) X10*3/uL Nucleated RBC % (auto) 0.0 (0.0-0.2) /100WBC Sodium 137 (135-145) mmol/L Potassium 4.3 (3.3-5.1) mmol/L Chloride 104 (96-108) mmol/L Carbon Dioxide 22 (22-29) mmol/L Anion Gap 15 (12-20) BUN 16 (9-16) mg/dL Creatinine 1.09 (0.5-1.4) mg/dL Estim Creat Clear Calc 26.2 Estimated GFR 49 Random Glucose 208 H (60-115) mg/dL Lactic Acid 4.6 H* (0.5-2.0) mmol/L Lactic Acid F/U @ 2Hr (0.5-2.0) mmol/L Calcium 9.7 (8.4-10.2) mg/dL Total Bilirubin 0.2 (0.0-1.0) mg/dL AST 23 (5-31) U/L ALT 26 (0-31) U/L Alkaline Phosphatase 126 H (39-117) U/L Troponin I High Sens 4.2 (<3.5-17.0) ng/L Total Protein 7.1 (6.5-8.0) g/dL Albumin 3.9 (3.5-5.0) g/dL Urine Color Yellow Urine Appearance Cloudy Urine pH 6.5 (5.0-9.0) Ur Specific [place] <= 1.005 (1.005-1.025) Urine Protein Negative (Neg-Trace) mg/dL Urine Glucose (UA) Negative (Negative) mg/dL Urine Ketones Negative (Negative) mg/dL Urine Blood Trace H (Negative) Urine Nitrite Negative (Negative) Ur Leukocyte Esterase Large (3+) H (Negative) Urine RBC 0-2 (0-2) /HPF Urine WBC >50 H (0-5) /HPF Ur Squamous Epith Cells 0-2 (0-2) /HPF Urine Bacteria 4+ (None Seen) Hyaline Casts 0-2 (0-2) /LPF Urine Opiates Screen Not Detected (Not Detect) Ur Buprenorphine Scrn Not Detected (Not Detect) ng/mL Ur Oxycodone Screen Not Detected (Not Detect) ng/mL Urine Methadone Screen Not Detected (Not Detect) ng/mL Urine Fentanyl Screen Not Detected (Not Detect) Ur Barbiturates Screen Not Detected (Not Detect) Ur Phencyclidine Scrn Not Detected (Not Detect) Ur Amphetamines Screen Not Detected (Not Detect) U Benzodiazepines Scrn Not Detected (Not Detect) Urine Cocaine Screen Not Detected (Not Detect) U Marijuana (THC) Screen Not Detected (Not Detect) Ethyl Alcohol < 10 mg/dL 08/09/23 Range/Units 21:44 WBC (4.8-10.8) X10*3/uL RBC (4.20-5.50) X10*6/uL Hgb (12.0-16.0) g/dl Hct (37.0-47.0) % MCV (80.0-98.0) fL MCH (27.0-33.0) pg MCHC (31.0-35.0) g/dl RDW (11.0-16.0) % Plt Count (160-400) X10*3/uL MPV (9.4-12.3) fL Immature Gran % (Auto) (0.0-0.4) % Neut % (Auto) (45-73) % Lymph % (Auto) (20-40) % [place] % (Auto) (2-11) % Eos % (Auto) (0-4) % Baso % (Auto) (0-2) % Lymph # (Auto) (1.2-4.9) X10*3/uL [place] # (Auto) (0.1-1.2) X10*3/uL Eos # (Auto) (0.0-0.4) X10*3/uL Baso # (Auto) (0.0-0.2) X10*3/uL Abs Immat Gran (auto) (0.00-0.03) X10*3/uL Absolute Neuts (auto) (2.0-8.3) x10*3/uL Absolute Nucleated RBC (0.0-0.012) X10*3/uL Nucleated RBC % (auto) (0.0-0.2) /100WBC Sodium (135-145) mmol/L Potassium (3.3-5.1) mmol/L Chloride (96-108) mmol/L Carbon Dioxide (22-29) mmol/L Anion Gap (12-20) BUN (9-16) mg/dL Creatinine (0.5-1.4) mg/dL Estim Creat Clear Calc Estimated GFR Random Glucose (60-115) mg/dL Lactic Acid (0.5-2.0) mmol/L Lactic Acid F/U @ 2Hr 1.9 (0.5-2.0) mmol/L Calcium (8.4-10.2) mg/dL Total Bilirubin (0.0-1.0) mg/dL AST (5-31) U/L ALT (0-31) U/L Alkaline Phosphatase (39-117) U/L Troponin I High Sens (<3.5-17.0) ng/L Total Protein (6.5-8.0) g/dL Albumin (3.5-5.0) g/dL Urine Color Urine Appearance Urine pH (5.0-9.0) Ur Specific [place] (1.005-1.025) Urine Protein (Neg-Trace) mg/dL Urine Glucose (UA) (Negative) mg/dL Urine Ketones (Negative) mg/dL Urine Blood (Negative) Urine Nitrite (Negative) Ur Leukocyte Esterase (Negative) Urine RBC (0-2) /HPF Urine WBC (0-5) /HPF Ur Squamous Epith Cells (0-2) /HPF Urine Bacteria (None Seen) Hyaline Casts (0-2) /LPF Urine Opiates Screen (Not Detect) Ur Buprenorphine Scrn (Not Detect) ng/mL Ur Oxycodone Screen (Not Detect) ng/mL Urine Methadone Screen (Not Detect) ng/mL Urine Fentanyl Screen (Not Detect) Ur Barbiturates Screen (Not Detect) Ur Phencyclidine Scrn (Not Detect) Ur Amphetamines Screen (Not Detect) U Benzodiazepines Scrn (Not Detect) Urine Cocaine Screen (Not Detect) U Marijuana (THC) Screen (Not Detect) Ethyl Alcohol mg/dL Independent Interpretation I performed an independent interpretation of an: EKG Interpretation: Normal sinus rhythm Tests considered The following testing was considered but not selected: Considered CT abdomen pelvis however given patient's benign abdominal exam and no CVA tenderness I do not feel that imaging was necessary Discharge Plan Discharge Clinical Impression: Urinary tract infection, Syncope Patient Disposition: Home, Self-Care Instructions: Urinary Tract Infection in Women (DC) Additional Instructions: Please waste picker your new medication and take as instructed Please schedule an appointment with your PCP to be seen in 24-48 hours If you develop any new or worsening symptoms please seek immediate medical attention or come back to this emergency department Prescriptions: New cephalexin 500 mg capsule 500 mg PO QID 7 Days Qty: 28 0RF No Action atorvastatin 40 mg tablet 40 mg PO BEDTIME Qty: 30 5RF omeprazole 20 mg capsule,delayed release(DR/EC) 20 mg PO QAM Qty: 30 1RF cholecalciferol (vitamin D3) 25 mcg (1,000 unit) tablet 25 mcg PO DAILY@1800 clonazepam 0.5 mg tablet 1 tab PO BID PRN (Reason: Anxiety) cyanocobalamin (vitamin B-12) 1,000 mcg tablet 1 tab PO QAM amlodipine 5 mg tablet 1 tab PO QPM calcium carbonate [Oyster Shell Calcium 500] 500 mg calcium (1,250 mg) tablet 1 tab PO BID losartan 25 mg tablet 1 tab PO QAM oxycodone 5 mg tablet 5 mg PO Q6H PRN (Reason: pain (scale score 7-10)) Qty: 15 0RF Rx Instructions: Partial Fill upon patient request. metoprolol tartrate 25 mg tablet 25 mg PO BID mirtazapine 15 mg tablet 15 mg PO BEDTIME olanzapine 5 mg tablet 5 mg PO BID ondansetron HCl 4 mg tablet 4 mg PO Q8H PRN (Reason: nausea and vomiting) 5 Days Qty: 20 0RF Interventions: ED Discharge Assessment Last Done: 08/10/23 00:25 Discharge Date/Time: 08/10/23 00:26 Print Language: Kinyarwanda
[2023-08-09 20:05] LABS: Ethanol < 10 mg/dL
[2023-08-09 20:07] LABS: Alanine Aminotransferase 26 U/L (0-31); Albumin Level 3.9 g/dL (3.5-5.0); Alkaline Phosphatase 126 U/L (39-117); Anion Gap 15 (12-20); Aspartate Amino Transferase 23 U/L (5-31); Bilirubin Total 0.2 mg/dL (0.0-1.0); Blood Urea Nitrogen 16 mg/dL (9-16); Calcium 9.7 mg/dL (8.4-10.2); Carbon Dioxide 22 mmol/L (22-29); Chloride 104 mmol/L (96-108); Creatinine Clr Calc Pharmacy 26.2; Estimated Glomerular Filt Rate 49; Glucose Random 208 mg/dL (60-115); Potassium 4.3 mmol/L (3.3-5.1); Sodium 137 mmol/L (135-145); Total Protein 7.1 g/dL (6.5-8.0)
[2023-08-09 20:10] LABS: Lactic Acid 4.6 mmol/L (0.5-2.0)
[2023-08-09 20:37] LABS: Troponin-I High Sensitivity 4.2 ng/L (<3.5-17.0)
[2023-08-09] MEDS: 0.9 % Sodium Chloride 1,000 ML 500 ML IV (20:43)
[2023-08-09 21:03] LABS: Appearance Urine Cloudy; Color Urine Yellow; Glucose Urine UA Negative (Negative); Leukocyte Esterase Urine Large (3+) (Negative); Nitrite Urine Negative (Negative); PH 6.5 (5.0-9.0); Specific Gravity - Urine <= 1.005 (1.005-1.025); UMIC TRIGGER UACC YES; Urine Blood Trace (Negative); Urine Ketones Negative (Negative); Urine Protein Negative (Neg-Trace)
[2023-08-09 21:11] LABS: Bacteria Urine 4+ (None Seen); Hyaline Casts Urine 0-2 /LPF (0-2); RBC Urine 0-2 /HPF (0-2); Squamous Epithelial Cell Urine 0-2 /HPF (0-2); UACC Culture Trigger YES; WBC Urine >50 /HPF (0-5)
[2023-08-09 21:25] LABS: Amphetamine Screen Urine Not Detected (Not Detect); Barbiturates, Urine Not Detected (Not Detect); Benzodiazepines Screen Urine Not Detected (Not Detect); Buprenorphine Scr Not Detected (Not Detect); Cannabinoid Screen Urine Not Detected (Not Detect); Cocaine Screen Urine Not Detected (Not Detect); Fentanyl, urine Not Detected (Not Detect); Methadone Screen, Urine Not Detected (Not Detect); Opiate Screen Urine Not Detected (Not Detect); Oxycodone Screen Urine Not Detected (Not Detect); Phencyclidine Screen Urine Not Detected (Not Detect)
[2023-08-09 21:31] LABS: Reflex Lactate? Lactic Acid Added
--- NOTE | 2023-08-09 21:52 | PC.NURSE ---
Addendum entered by Tess Weems 08/09/23 22:52: provider okay to not obtain blood cultures prior to antibiotic administration due to pt having UTI. Original Note: pt ambulated to bathroom with steady gait at this time.
[2023-08-09 22:00] VITALS: BP 96/45; PULSE 90; RESP 21; TEMP 36.4; O2SAT 98
[2023-08-09 22:03] LABS: ~Lactic Acid-LAB USE ONLY 1.9 mmol/L (0.5-2.0)
[2023-08-09] MEDS: cefTRIAXone sodium 1 GM in 0.9 % Sodium Chloride 50 ML IV (22:16)
[2023-08-09] MEDS: 0.9 % Sodium Chloride 500 ML IV (22:16)
--- NOTE | 2023-08-09 22:39 | MHC.EDTECH ---
vital signs checked, BP low, RN aware
--- NOTE | 2023-08-09 22:52 | PC.NURSE ---
provider aware of pt blood pressure, to check again after ambulation.
[2023-08-09 22:55] VITALS: BP 156/56; PULSE 94; RESP 25; O2SAT 96
--- NOTE | 2023-08-09 22:55 | PC.NURSE ---
pt blood pressure improved with ambulation, provider aware.
[2023-08-10 00:25] VITALS: BP 134/54; PULSE 54; RESP 17; TEMP 36.7; O2SAT 98
== END 2023-08-10 00:26 | disposition home or self-care (01) ==
PROVIDERS: Emergency Provider Student in an Organized Health Care Education/Training Program; PCP Family Medicine
DX: N39.0 Urinary tract infection, site not specified (principal); R55 Syncope and collapse; E11.9 Type 2 diabetes mellitus without complications; I10 Essential (primary) hypertension; F03.90 Unspecified dementia, unspecified severity, without behavioral disturbance, psychotic disturbance, mood disturbance, and anxiety; E78.5 Hyperlipidemia, unspecified; M06.9 Rheumatoid arthritis, unspecified; B19.20 Unspecified viral hepatitis C without hepatic coma; Z79.899 Other long term (current) drug therapy; Z85.3 Personal history of malignant neoplasm of breast; Z79.4 Long term (current) use of insulin
CPT/HCPCS: 36415; 70450; 71045; 80053; 80307; 81001; 81003; 83605; 84146; 84484; 85025; 87086; 87088; 87186; 93005; 96361; 96365; 99284; 99285; J0696

== ENCOUNTER → 2023-08-09 19:06 | Outpatient (BNV) | payer OTHER, SELFPAY | PROVIDERS: Emergency Provider Student in an Organized Health Care Education/Training Program; PCP Family Medicine; Visit Provider Internal Medicine | DX: R94.31 Abnormal electrocardiogram [ECG] [EKG] (principal); G40.909 Epilepsy, unspecified, not intractable, without status epilepticus | CPT/HCPCS: 93010 ==

== ENCOUNTER 2023-11-23 14:39 | Emergency (ER) | payer OTHER, SELFPAY ==
--- NOTE | 2023-11-23 | ECG_ITS ---
Test Reason : syncope Blood Pressure : / mmHG Vent. Rate : 110 BPM Atrial Rate : 110 BPM P-R Int : 134 ms QRS Dur : 068 ms QT Int : 326 ms P-R-T Axes : 052 -01 020 degrees QTc Int : 441 ms Sinus tachycardia Minimal voltage criteria for LVH, may be normal variant ( R in aVL ) Borderline ECG When compared with ECG of 09-AUG-2023 19:18, No significant change was found Referred By: Generic ED Physician Electronically Signed By:HILDA OQUENDO
--- NOTE | ~2023-11-23 | XR_ITS ---
EXAMINATION: XR CHEST CLINICAL INFORMATION: Syncope COMPARISON: Chest radiograph 08/09/2023 TECHNIQUE: Frontal view of the chest was obtained. FINDINGS: No significant abnormality is noted involving the heart, lungs, mediastinum, bony thorax or soft tissues. There are old healed left-sided rib fractures again noted. XR/XR chest 1V IMPRESSION: Unremarkable examination. Electronically signed by: Alejandro Carrasco MD 11/23/2023 05:48 PM EDT
--- NOTE | ~2023-11-23 | CT_ITS ---
EXAMINATION: CT HEAD WITHOUT CONTRAST CLINICAL INFORMATION: New onset seizure. COMPARISON: Most recent CT head dated 08/09/2023. TECHNIQUE: Contiguous axial imaging was performed from the skull base to vertex without intravenous administration of contrast. This CT examination was performed using dose optimization techniques as appropriate, variously including the following: *Automated exposure control *Adjustment of mA and/or kV according to patient size (this includes techniques or standardized protocols for targeted exams where dose is matched to indication/reason for exam; i.e. extremities or head) *Use of iterative reconstruction technique DLP: 575 mGy-cm FINDINGS: The ventricles and sulci are enlarged consistent with diffuse atrophy. No visualized masses or midline shift are seen. There is no intra-axial or extra-axial hemorrhage. There are no fluid collections. Decreased attenuation is seen in the periventricular white matter compatible with chronic small vessel ischemic disease. The vasquez-white discrimination is preserved. The included paranasal sinuses and mastoid air cells are well aerated. The calvarium is intact. CT/CT head/brain wo IV con IMPRESSION: No intracranial hemorrhage or mass effect. Generalized atrophy and chronic small vessel white matter ischemic changes. No significant interval change. Electronically signed by: Minh Whitlock MD 11/23/2023 08:59 PM EDT RP
[2023-11-23 14:56] VITALS: BP 148/72; BP 172/77; PULSE 114; PULSE 120; RESP 16; TEMP 36.6; O2SAT 98; O2SAT 99; BMI 26.6
--- NOTE | 2023-11-23 14:58 | PC.NURSE ---
patient arrives via EMS from home, per EMS patient had syncopal episode, witnessed by daughter, states she slid and fell out of her chair, denies head strike, denies recent illness, patient with hx of dementia, states she does not know why she is here. patient states she has been feeling well otherwise, denies any chest pain,shortness of breath, fevers, patient alert to self, intermittently confused to situation. PIV in left hand from EMS. 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
--- NOTE | 2023-11-23 15:14 | ED.SYNCOPE ---
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 Barnes, dementia who reportedly was sitting down and slid out of chair. No headstrike not on thinners. No trauma, slid out of the chair. Reportedly more weak this AM but the patient denies all of this and states none of this happened. Patient denies any pain and states she is fine. 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(s) Prodromal symptoms: none Witnessed: Yes - by Bystander Context: at rest Injuries sustained associated with event: none Current symptoms: back to baseline Treatments prior to arrival: none Related Data Home Medications ?Medication ?Instructions ?Recorded ?Confirmed cholecalciferol (vitamin D3) 25 25 mcg PO DAILY@1800 09/17/20 02/02/22 mcg (1,000 unit) tablet amlodipine 5 mg tablet 1 tab PO QPM 09/23/20 02/02/22 calcium carbonate (Oyster Shell 1 tab PO BID 09/23/20 02/02/22 Calcium 500) clonazepam 0.5 mg tablet 1 tab PO BID PRN Anxiety 09/23/20 02/02/22 cyanocobalamin (vitamin B-12) 1 tab PO QAM 09/23/20 02/02/22 1,000 mcg tablet losartan 25 mg tablet 1 tab PO QAM 09/23/20 02/02/22 metoprolol tartrate 25 mg tablet 25 mg PO BID 03/26/21 02/02/22 mirtazapine 15 mg tablet 15 mg PO BEDTIME 03/26/21 02/02/22 olanzapine 5 mg tablet 5 mg PO BID 12/24/21 02/02/22 Previous Rx's ?Medication ?Instructions ?Recorded oxycodone 5 mg tablet 5 mg PO Q6H PRN pain (scale score 01/17/22 7-10) #15 tabs ondansetron HCl 4 mg tablet 4 mg PO Q8H PRN nausea and 02/01/22 vomiting 5 days #20 tabs atorvastatin 40 mg tablet 40 mg PO BEDTIME #30 tabs 08/03/22 cephalexin 500 mg capsule 500 mg PO QID Urinary tract 08/09/23 infection 7 days #28 caps omeprazole 20 mg capsule,delayed 20 mg PO QAM #30 caps 11/13/23 release Allergies Allergy/AdvReac Type Severity Reaction Status Date / Time codeine [Codeine] Allergy Mild UPSET Verified 11/23/23 14:59 STOMACH, visual impairment DEQUAN Inhibitors AdvReac Intermediate COUGH Verified 11/23/23 14:59 [DEQUAN INHIBITORS] hydrochlorothiazide AdvReac Intermediate HYPONATREMI Verified 11/23/23 14:59 [HYDROCHLOROTHIAZIDE] A Review of Systems Review of Systems: ROS unable to be obtained due to dementia PENDING SALE TO [facility] Past Medical History Attestation statement: The following information was validated with the patient. 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 Father No problems noted. Mother No problems noted. Social History Social History Alcohol intake: never Patient Tobacco Use Status: Never used Tobacco Smoked in Last 30 Days: No Second Hand Smoke Exposure: No Use of substances other than those prescribed or required for medical reasons: No Advance Directives: Yes Advance Directives on File: Yes Advance Directives Date on File: 09/18/20 Do you have a plan to hurt others: No Plan Current occupational status: unemployed Current occupation: right handed Physical Exam Vital Signs: Vital Signs: Last Vital Signs Temp 98 F 11/23/23 14:56 Pulse 114 H 11/23/23 14:56 Resp 16 11/23/23 14:56 BP 148/72 H 11/23/23 14:56 Pulse Ox 98 11/23/23 14:56 O2 Del Method Room Air 11/23/23 14:56 BMI result Body Mass Index 26.6 Appearance: Alert. Oriented X3. No acute distress. Eyes: Pupils equal, round and reactive to light. ENT: Pharynx normal. atraumatic Neck: Normal inspection. Neck supple. CVS: tachycardic heart rate and rhythm. Pulses normal. Respiratory: No respiratory distress. Breath sounds normal. Abdomen: Soft and non-tender. Skin: Skin warm and dry. Normal skin color. Normal skin turgor. Extremities: No lower extremity edema. Neuro: Oriented X 3. No motor deficit. No sensory deficit. Course Course Course Narrative: signed out to Dr. Lira pending workup Medical Decision Making Medical Decision Making MDM Narrative: 73 yo female with PMH of ALICE, bipolar, IDDM, HLD, HTN, breast cancer under surveillance currently by Dr. Barnes, dementia here with c/o witnessed syncope while at rest no trauma the patinet has no complaints she denies this could have happened at this time will obtain basic labs, EKG, ortho VS, UA, ddimer, trop x 2 - no head trauma and appears at baseline no headache doubt ICH Differential Diagnosis Differential Diagnoses: The differential diagnosis associated with the presentation includes VTE, syncope, orthostatic Admission/Observation Consideration of admission/observation: Escalation of care including admission/observation considered Lab Data [facility] Lab Attestation statement: I reviewed the patient's lab results. Independent Interpretation I performed an independent interpretation of an: EKG Interpretation: Rate: 110 Rhythm: sinus tach [place]: normal, LVH Normal P waves. Normal MILLA. Normal QRS complex. ST T wave : normal no RANJIT qTC: 441 prior studies: no acute ischemia The study has been interpreted contemporaneously by me. . Independent Historian Clinical information obtained from an independent historian. History obtained from or confirmed by: EMS External Record Review External record reviewed: Office record Discharge Plan Discharge Clinical Impression: Syncope Patient Disposition: Still a Patient Prescriptions: No Action atorvastatin 40 mg tablet 40 mg PO BEDTIME Qty: 30 5RF omeprazole 20 mg capsule,delayed release(DR/EC) 20 mg PO QAM Qty: 30 1RF cholecalciferol (vitamin D3) 25 mcg (1,000 unit) tablet 25 mcg PO DAILY@1800 clonazepam 0.5 mg tablet 1 tab PO BID PRN (Reason: Anxiety) cyanocobalamin (vitamin B-12) 1,000 mcg tablet 1 tab PO QAM amlodipine 5 mg tablet 1 tab PO QPM calcium carbonate [Oyster Shell Calcium 500] 500 mg calcium (1,250 mg) tablet 1 tab PO BID losartan 25 mg tablet 1 tab PO QAM oxycodone 5 mg tablet 5 mg PO Q6H PRN (Reason: pain (scale score 7-10)) Qty: 15 0RF Rx Instructions: Partial Fill upon patient request. cephalexin 500 mg capsule 500 mg PO QID 7 Days Qty: 28 0RF metoprolol tartrate 25 mg tablet 25 mg PO BID mirtazapine 15 mg tablet 15 mg PO BEDTIME olanzapine 5 mg tablet 5 mg PO BID ondansetron HCl 4 mg tablet 4 mg PO Q8H PRN (Reason: nausea and vomiting) 5 Days Qty: 20 0RF Print Language: Indonesian
[2023-11-23 16:24] LABS: Appearance Urine Clear; Color Urine Yellow; Glucose Urine UA Negative (Negative); Leukocyte Esterase Urine Negative (Negative); Nitrite Urine Negative (Negative); Specific Gravity - Urine <= 1.005 (1.005-1.025); Urine Blood Negative (Negative); Urine Ketones Negative (Negative); Urine Protein Negative (Neg-Trace)
[2023-11-23 16:34] LABS: Alanine Aminotransferase 29 U/L (0-31); Alkaline Phosphatase 102 U/L (39-117); Anion Gap 14 (12-20); Aspartate Amino Transferase 29 U/L (5-31); Bilirubin Direct < 0.2 mg/dL (0.0-0.5); Bilirubin Total 0.2 mg/dL (0.0-1.0); Blood Urea Nitrogen 14 mg/dL (9-16); C Reactive Protein 0.84 mg/dL (< or = 0.50); Calcium 9.6 mg/dL (8.4-10.2); Carbon Dioxide 22 mmol/L (22-29); Chloride 105 mmol/L (96-108); Creatinine Clr Calc Pharmacy 39.3; Estimated Glomerular Filt Rate 59; Glucose Random 151 mg/dL (60-115); Magnesium 2.5 mg/dL (1.6-2.6); Potassium 4.3 mmol/L (3.3-5.1); Sodium 137 mmol/L (135-145); Total Protein 7.6 g/dL (6.5-8.0)
[2023-11-23 16:39] LABS: Troponin-I High Sensitivity 3.3 ng/L (<3.5-17.0)
[2023-11-23 16:41] LABS: D Dimer High Sensitivity 657 NG/ML
[2023-11-23 16:42] LABS: Eosinophils Percent Auto 0.2 % (0-4); Mean Corpuscular Volume 92.1 fL (80.0-98.0); PLT CLUMP 1; Red Cell Distribution Width 12.6 % (11.0-16.0); SCAN SMEAR FLAG 1
[2023-11-23 16:44] LABS: Basophils Percent Auto 0.2 % (0-2); Hematocrit 37.1 % (37.0-47.0); Imm Gran Abs Auto 0.05 X10*3/uL (0.00-0.03); Imm Gran Pct Auto 0.5 % (0.0-0.4); Lactic Acid 3.3 mmol/L (0.5-2.0); Lymphocytes Absolute Auto 0.6 X10*3/uL (1.2-4.9); Lymphocytes Percent Auto 6.1 % (20-40); MANUAL DIFF FLAG SCAN; Mean Corpuscular Hemoglobin 32.3 pg (27.0-33.0); Mean Platelet Volume 10.6 fL (9.4-12.3); Monocytes Absolute Auto 0.7 X10*3/uL (0.1-1.2); Monocytes Percent Auto 7.2 % (2-11); Neutrophils Absolute Auto 8.3 x10*3/uL (2.0-8.3); Neutrophils Percent Auto 85.8 % (45-73); Red Blood Count 4.03 X10*6/uL (4.20-5.50)
[2023-11-23 16:45] LABS: White Blood Count 9.6 X10*3/uL (4.8-10.8)
[2023-11-23 16:49] LABS: B Type Natriuretic Peptide 15 pg/mL (<100)
[2023-11-23 16:59] LABS: Influenza A PCR NEGATIVE (Negative); Influenza B PCR NEGATIVE (Negative); Resp Syncy Virus RNA Qual PCR NEGATIVE (Negative); SARS COV2 PCR INHOUSE NEGATIVE (Negative)
[2023-11-23] MEDS: 0.9 % Sodium Chloride 1,000 ML 999 ML IV (17:02)
[2023-11-23] MEDS: cefTRIAXone sodium 1 GM VIAL IVPUSH (17:02)
[2023-11-23 17:05] LABS: Platelet Count 162 X10*3/uL (160-400)
[2023-11-23 17:06] LABS: SLIDE REVIEW VERIFIED
[2023-11-23 17:47] VITALS: BP 94/60; PULSE 77; RESP 11; TEMP 36.2; O2SAT 98
[2023-11-23] MEDS: levETIRAcetam in NaCl (iso-os) 1,000 MG/100 ML PIGGYBACK 400 MG IV (18:03)
[2023-11-23 18:22] LABS: Reflex Lactate? Lactic Acid Added
--- NOTE | 2023-11-23 18:24 | MHC.EDTECH ---
provider canceled the orthostatic vitals nurse is aware
--- NOTE | 2023-11-23 19:08 | PC.NURSE ---
report received from Tess Luke RN, assume care of pt at this time
[2023-11-23 19:14] LABS: ~Lactic Acid-LAB USE ONLY 0.9 mmol/L (0.5-2.0)
[2023-11-23 19:21] VITALS: O2SAT 98
[2023-11-23 19:55] VITALS: BP 121/72; PULSE 92; RESP 12; TEMP 36.8; O2SAT 99
[2023-11-23 19:57] VITALS: BP 121/72; PULSE 92; RESP 12; TEMP 36.8; O2SAT 99
== END 2023-11-23 20:00 | disposition home or self-care (01) ==
PROVIDERS: Emergency Medicine; Emergency Provider Internal Medicine
DX: R55 Syncope and collapse (principal); F03.90 Unspecified dementia, unspecified severity, without behavioral disturbance, psychotic disturbance, mood disturbance, and anxiety; R51.9 Headache, unspecified; N39.0 Urinary tract infection, site not specified; R06.02 Shortness of breath; R00.0 Tachycardia, unspecified; I10 Essential (primary) hypertension; E11.9 Type 2 diabetes mellitus without complications; Z03.818 Encounter for observation for suspected exposure to other biological agents ruled out; Z79.899 Other long term (current) drug therapy
CPT/HCPCS: 0241U; 36415; 70450; 71045; 80048; 80076; 81003; 82550; 83605; 83735; 83880; 84484; 85025; 85379; 86140; 93005; 96361; 96374; 96375; 99284; 99285; J0696; J1953

== ENCOUNTER → 2023-11-23 14:50 | Outpatient (BNV) | payer OTHER, SELFPAY | PROVIDERS: Emergency Provider Emergency Medicine; Visit Provider Internal Medicine | DX: R55 Syncope and collapse (principal); R00.0 Tachycardia, unspecified; R94.31 Abnormal electrocardiogram [ECG] [EKG] | CPT/HCPCS: 93010 ==

== ENCOUNTER 2024-05-09 10:17 | Outpatient (REF) | payer OTHER, SELFPAY ==
--- NOTE | ~2024-05-09 | XR_ITS ---
CLINICAL HISTORY: left wrist pain 5 view left wrist Comparison: None Findings: Bones intact. No dislocations. No significant loss of joint space, osteophyte, or erosions. No radiopaque foreign body. IMPRESSION: 1. No acute findings This document has been electronically signed by: Chito Nogueira MD on 05/10/2024 09:03:40
--- NOTE | ~2024-05-09 | XR_ITS ---
CLINICAL HISTORY: left shoulder pain w decreased ROM after a fall 3 view left shoulder Comparison: None Findings: There is a distracted fracture of the greater tuberosity. No significant loss of joint space or osteophytes. No erosions. No radiopaque foreign body. IMPRESSION: 1. Distracted greater tuberosity fracture This document has been electronically signed by: Chito Nogueira MD on 05/10/2024 09:04:02
--- NOTE | ~2024-05-09 | XR_ITS ---
CLINICAL HISTORY: Left elbow pain 2 view left elbow Comparison: None Findings: No acute fractures or dislocations. No significant arthritic change or erosions. No joint effusion. No radiopaque foreign body. IMPRESSION: 1. No acute findings This document has been electronically signed by: Chito Nogueira MD on 05/10/2024 09:03:48
--- OUTSIDE RECORDS SUMMARY | 2024-05-09 11:10 | XMS_ITS | Encounter Summary ---
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 [employer] Name Role Phone Crystal Rosario MD Primary Care Provider [phone] Reason for Visit * Reason Onset Date Comments Results 01/17/2022 Encounter Details Date Type Department Care Team ([facility] st Contact Info) Description 01/17/2022 Telephone [facility] [address] [place] [address] Crystal Rosario MD [address] [place] [address] Results Social History Tobacco Use Types Packs/Day Years Used Date Smoking Tobacco: Never Assessed Comments Unknown Sex and Gender Information Value Date Recorded Sex Assigned at Female 12/06/2021 10:30 AM EDT Legal Sex Female 10:30 AM EDT Gender Identity Female 12/06/2021 10:30 AM EDT Sexual Orientation Straight 12/06/2021 10 :30 AM EDT documented as of this encounter Miscellaneous Notes * Telephone Encounter - Imelda Mcgowan LPN - 01/24/2022 4:25 PM EST Script generated and faxed to [facility] * Telephone Encounter - Crystal Rosario MD - 01/24/2022 1:22 PM EST Can you please followup in Booster request, thanks! * Telephone Encounter - Maury Perkins RN - 01/21/2022 2:15 PM EST Incoming message from PCP: Can you please clarify this referral to [facility], because to the best ofmy understanding this is a brand, please request more information from the daughter, like tooth cutter contact wheel, number to call. Please and thanks! Crystal Call placed to daughter Rosalina. Pt previously receiving Rx boost supplied by [facility]. States pt ran out of Rx 1 month ago and requesting refills. Per review of chart in [facility], Rx Boost 1 can/2 day sent to [facility] on 09/10/21. Call placedto [facility]. No answer. Left v/m requesting return call. Will forward to PCP to review. * Telephone Encounter - Maury Perkins RN - 01/18/2022 1:45 PM EST Daughter Rosalina requesting new referral to [facility]. States [facility] helps with pt obtaining Rx ensure. Pt with decreased appetite. Per daughter, PCP aware. Advised will forward to PCP to review. She agrees. Please advise. Thank you. * Telephone Encounter - Maury Perkins RN - 01/18/2022 1:41 PM EST Call placed. Spoke with daughter Rosalina, listed in HIPAA. Rosalina informed of results of the barium swallow. States she is already aware. Per Rosalina, pt seen by Dr. Conway yesterday for eval of the hernia? Advised referral to GI placed for further eval and pt to be contacted with appt once scheduled. She agrees. * Telephone Encounter - Jacki Alvarez - 01/17/2022 12:19 PM EST Tc from daughter carlos returning call from nurse regarding results, please call [phone]. documented in this encounter Plan of Treatment Not on file documented as of this encounter Visit Diagnoses Not on filedocumented in this encounter Care Teams Cut [employer] Saw Tender [employer] Relationship Specialty Start Date End Date Crystal Rosario MD [address] [place] [address] PCP - General Family Medicine 02/21/20 documented as of this encounter
--- OUTSIDE RECORDS SUMMARY | 2024-05-09 11:10 | XMS_ITS | Data Portability ---
Author Organization [employer], [place] [facility] [employer] Address [address] [place] [id number] Care Team Providers Care Tugboat Pilot Name Role Phone [facility] Referring Provider [facility] Referring Provider Assessment Encounter Date Assessment Date Assessment LastModified by Organization Details LastModified Time 05/01/2023 05/01/2023 As noted, we renee motley called to see this patient regarding concerns of possible UTI Hx obtained with assistance of daughter 72 yo romansh speaking F with h/o dementia and at baseline she urinates frequently with 4 days of increased confusion and more frequent urination. No n/v. No fevers. No report of abd pain. Patient is eating/drinking and walking around. PMH notable for vascular dementia, paranoid schizophrenia, anxiety, DM, htn Evaluation in the field was performed by my crm technical lead colleague, as noted above, I provided real-time direction and supervision for this visit. Vitals reviewed The evaluation revealed: in nad oriented to person, place but confused on the year nc/at nl gait; no facial droop; speech coherent lungs clear rrr abd soft, nd, nt; no cva tenderness Impression: ___ Urinary frequency Initial udip in setting of urinary sxs and some increased confusion may suggest a UTI No prior ucx results for reference Will start on cephalosporin No systemic sxs such as fevers, chills, abd exam reassuring Other than some disorientation to year, no localizing neuro sxs Will rx for cystitis pending ucx Red flag s/s reviewed with patient/family including worsening sxs, mental status issues, vomiting, fevers, erratic blood sugars POC glucose 199 today Plan: start on cephalosporin for possible cystitis cephalexin 500mg po in home (does not carry cefpodoxime) and Rx for cefpodoxime to pharmacy red flag s/s reviewed Primary care, consider check in with patient/daughter to assess progress. Ucx sent to lab Disposition: We discussed the diagnostic uncertainty of home visits and the risk associated with this. In this case, the patient and I felt this to be an acceptable and reasonable amount of risk given the benefit of avoiding an ED visit. We discussed the need to seek care urgently/emergentl y in the setting of any new or worsening serious symptoms, particularly fevers, chills, vomiting, abdominal pain, localizing neuro deficits, other acute concerns [email or web address] Not available 05/01/2023 12:57:57 07/05/2023 07/05/2023 I have reviewed and agree with the assessment and plan as documented by the crm technical lead. I provided real-time medical direction for this encounter and was immediately available to provide additional phone-based assistance as needed. 72F presenting with concern for corneal abrasion since 1 day. Family noted scleral erythema to left eye that progressed today. Patient has severe dementia, non verbal, and may have scratched her eye. She is not expressing any pain today, no irritation or excessive tearing. Eye appears to have mild scleral injection, no discharge. No periorbital swelling. Normal extraocular movements. Unable to test visual acuity, however family notices no difference in patients demeanor. Suspect corneal abrasion, will recommend erythromycin ointment. Family agrees to monitor for worsening swelling, pain or new concerns, and to seek medical attention immediately if they occur. [email or web address] Not available 07/05/2023 17:27:28 04/06/2024 04/06/2024 I provided real -time medical direction via phone for this encounter and was available for additional phone-based assistance as needed. I have reviewed and agree with the Assessment and Plan as documented by the Case Picker. Patient given the opportunity to ask questions. Our service contacted for an assessment of: falls As per above, patient with dementia that is worsening and patient is becoming unable to be directed to maintain safety. Patient has had 2 falls last week out of bed. She was unable to be directed to stay in bed overnight. Family aware and trying medication strategies such as getting rails on the bed. There was no loss of consciousness. She has not had any changes in mental status. She is not taking a blood thinner. The dementia and mental status overall is declining but not acutely changed. Patient is urinating and bowel movements are normal for her. P.o. intake is normal. Per crm technical lead on the scene, vital signs are stable patient is afebrile. Please see uploaded pictures for injuries that are evolving over the course of a week to week and a half. Impression: Falls Plan: F/u with PCP and care team to assist patient and family with safety in the home. May benefit from a hospital bed close to the ground and mats/padding on the ground at night. Allergies: Reviewed PCP f/u: We discussed the diagnostic uncertainty of home visits and the risk associated with this. In this case, the patient and I felt this to be an acceptable and reasonable amount of risk given the benefit of avoiding an ED visit. We discussed the need to seek care urgently/emergentl y in the setting of any new or worsening serious symptoms, particularly fever chills lightheadedness altered mental status [email or web address] Not available 04/06/2024 19:16:02 Plan of Treatment Reminders Order Date Submit Date Provider Last Modified By Organization Details Last Modified Time Details Appointments None recorded. Lab urinalysis, dipstick 2023 [facility], [address] [place] [address], [phone], 12:18:16 urinalysis, dipstick [address], [address] [place] [address], [phone], 12:38:08 culture, urine 2023 [facility] (Centralized Electronic Ordering - All Locations), Patient Can Go To The Location Of Their Choice, [address] 14:06:46 Referral None recorded. Procedures None recorded. Surgeries None recorded. Imaging None recorded. Medication Orders erythromyci n 5 mg/gram (0.5 %) eye ointment 2023 [id number], [address] [place] [address], [id number], 17:28:23 cefpodoxime 100 mg tablet 2023 [id number], [address], [place], [id number], 12:45:54 Patient TargetsNo targets recorded. Patient InstructionsNo instructions recorded. Reason for Referral None Reported. Results Created Date Observation Date Name Description Value Unit Range Abnormal Flag Note LastModifiedBy Organization Detail LastModifiedTime 05/01/1905/02/2023 URINE CULTU RE,CO MPREH ENSIV E urine culture,comp rehensive TNP Test not perfo rmed. No urine speci men was recei kaleb for cultu re. Test not perfo rmed. Red/y ellow speck led urine tube is for Urina lysis only; not suita ble for urine cultu re or other urine testi ng. Not Available [facility] ([facility]) [address], [place], [address], 05/02/2023 14:06:46 05/01/19 24 05/02/[address] PROBL EM request problem TNP Test not perfo rmed. No urine speci men was recei kaleb for cultu re. Test not perfo rmed. Red/y ellow speck led urine tube is for Urina lysis only; not suita ble for urine cultu re or other urine testi ng. TEST: 13269 6 Urine Cultu re,Co mpreh ensiv e Not Available [facility] ([facility]) [address], [place], [address], 05/02/2023 14:06:47 05/01/19 24 05/01/2023 urina lysis , dipst ick Leukocytes positi ve Not Available [facility] - [facility] [address] [place] [address], [phone], 05/01/2023 12:36:47 05/01/19 24 05/01/2023 urina lysis , dipst ick Nitrite negati ve Not Available [facility] - [facility] [address] [place] [address], [phone], 05/01/2023 12:36:47 05/01/19 24 05/01/2023 urina lysis , dipst ick Protein positi ve Not Available Main - [facility] ed [address] [place] [address], [phone], 05/01/2023 12:36:47 05/01/19 24 05/01/2023 urina lysis , dipst ick Blood negati ve Not Available Main - [facility] ed [address] [place] [address], [phone], 05/01/2023 12:36:47 05/01/19 24 05/01/2023 urina lysis , dipst ick Ketone negati ve Not Available Main - [facility] ed [address] [place] [address], [phone], 05/01/2023 12:36:47 05/01/19 24 05/01/2023 urina lysis , dipst ick Glucose negati ve Not Available Main - [facility] ed [address] [place] [address], [phone], 05/01/2023 12:36:47 05/01/19 24 05/01/2023 urina lysis , dipst ick Appearance clear Not Available [facility] [address] [place] [address], [phone], 05/01/2023 12:36:47 05/01/19 24 05/01/2023 urina lysis , dipst ick Color yellow Not Available Main - [facility] [address] [place] [address], [phone], 05/01/2023 12:36:47 Result Notes None recorded. Medical Equipment None Reported. Allergies Allergen ID Allergen Name Allergen Category Reaction Reaction Severity Criticality Documentation Date Start Date Code Code System Note Provider Name and Address Organization Details Recorded Time 78455 codeine medicatio n Not available Not available Not available 04/06/2024 2670 RxNorm Not Available [facility] - production 5 08:24:50 82276 metformin medicatio n Not available Not available Not available 04/06/2024 6809 RxNorm Not Available [facility] - production 5 08:24:50 08463 hydrochlo rothiazid e medicatio n Not available Not available Not available 04/06/2024 5487 RxNorm Not Available [facility] - production 5 08:24:50 Medications Name Sig Start Date Stop Date Status Note LastModified by Organization Details LastModified Time medbox status USE DIRECTED active Not Available Not Available No t Available atorvastatin 40 mg tablet TAKE ONE TABLET EVERY NIGHT AT BEDTIME active Not Available Not Available No t Available cefpodoxime 100 mg tablet TAKE 1 TABLET BY MOUTH EVERY 12 HOURS FOR 5 DAYS active Not Available Not Available No t Available ondansetron HCl 4 mg tablet TAKE ONE TABLET BY MOUTH EVERY 8 HOURS NEEDED FOR NAUSEA AND VOMITING active Not Available Not Available No t Available clonazepam 0.5 mg tablet TAKE ONE TABLET TWICE DAILY active Not Available Not Available No t Available olanzapine 5 mg tablet TAKE ONE TABLET IN THE MORNING AND EVENING active Not Available Not Available No t Available amlodipine 5 mg tablet TAKE 1 TABLET EVERY EVENING active Not Available Not Available No t Available olanzapine 2.5 mg tablet TAKE ONE TABLET EVERY DAY NEEDED FOR ANXIETY active Not Available Not Available No t Available calcium 500 mg (as calcium carbonate 1,250 mg) tablet TAKE ONE TABLET IN THE MORNING AND EVENING active Not Available Not Available No t Available OneTouch Ultra Test strips TEST BLOOD SUGAR THREE TIMES DAILY active Not Available Not Available No t Available erythromycin 5 mg/gram (0.5 %) eye ointment APPLY 1 CM RIBBION INTO THE AFFECTED EYE THREE TIMES DAILY active Not Available Not Available No t Available losartan 25 mg tablet TAKE ONE TABLET EVERY MORNING active Not Available Not Available No t Available omeprazole 20 mg capsule,delaye d release TAKE ONE CAPSULE EVERY MORNING active Not Available Not Available No t Available mirtazapine 15 mg tablet TAKE ONE TABLET EVERY NIGHT AT BEDTIME active Not Available Not Available No t Available ergocalciferol (vitamin D2) 1,250 mcg (50,000 unit) capsule TAKE ONE CAPSULE EACH MONTH ON THE FIRST of THE MONTH active Not Available Not Available No t Available glipizide 5 mg tablet TAKE ONE TABLET TWICE DAILY BEFORE MEALS active Not Available Not Available No t Available memantine 5 mg tablet TAKE ONE TABLET TWICE DAILY IN THE MORNING AND AT BEDTIME active Not Available Not Available No t Available metoprolol tartrate 25 mg tablet TAKE ONE TABLET IN THE MORNING AND EVENING active Not Available Not Available No t Available cholecalcifero l (vitamin D3) 50 mcg (2,000 unit) tablet TAKE ONE TABLET EVERY MORNING active Not Available Not Available No t Available OneTouch Ultra2 Meter TEST BLOOD SUGAR THREE TIMES DAILY active Not Available Not Available No t Available OneTouch Delica Plus Lancet 33 gauge TEST BLOOD SUGAR THREE TIMES DAILY active Not Available Not Available No t Available Vitals Date Recorded Heart rate Body height Oxygen saturation Oxygen saturation in Arterial blood by Pulse oximetry Body weight Body temperature Respiratory rate Systolic blood pressure Diastolic blood pressure Provider Name and Address Organization Details Last Updated DateTime 3 73 /min 149.86 cm 98 % 98 % 88134 g 98 [degF] 18 /min 102 mm[Hg] 66 mm[Hg] Not Available [facility] 3 16:02:23 Date Recorded Heart rate Body height Oxygen saturation Oxygen saturation in Arterial blood by Pulse oximetry Body weight Body temperature Respiratory rate Systolic blood pressure Diastolic blood pressure Provider Name and Address Organization Details Last Updated DateTime 4 80 /min 147.32 cm 97 % 97 % 40077.0 4 g 97.2 [degF] 14 /min 131 mm[Hg] 77 mm[Hg] Not Available [facility] 4 12:30:22 Date Recorded Oxygen saturation Oxygen saturation in Arterial blood by Pulse oximetry Heart rate Respiratory rate Body temperature Systolic blood pressure Diastolic blood pressure Provider Name and Address Organization Details Last Updated DateTime 4 97 % 97 % 69 /min 16 /min 97.8 [degF] 110 mm[Hg] 64 mm[Hg] Not Available [facility] 4 17:12:00 Date Recorded Respiratory rate Heart rate Body weight Body temperature Oxygen saturation Oxygen saturation in Arterial blood by Pulse oximetry Systolic blood pressure Diastolic blood pressure Provider Name and Address Organization Details Last Updated DateTime 4 16 /min 88 /min 86397.0 4 g 98.3 [degF] 99 % 99 % 142 mm[Hg] 74 mm[Hg] Not Available [facility] 4 10:01:21 Date Recorded Oxygen saturation Oxygen saturation in Arterial blood by Pulse oximetry Body temperature Respiratory rate Heart rate Systolic blood pressure Diastolic blood pressure Provider Name and Address Organization Details Last Updated DateTime 5 94 % 94 % 99.3 [degF] 14 /min 94 /min 105 mm[Hg] 66 mm[Hg] Not Available [facility] - production 5 14:12:14 Social History None recorded. Functional Status None recorded. Mental Status None recorded. Family History Nothing Reported. Medical History No medical history recorded. Gynecological HistoryNo gynecological history recorded. Obstetrics History GPAL:G 0 P 0 0 0 0 Past Encounters Encounter ID Performer Location Encounter Start Date Encounter Closed Date Diagnosis/Indication Diagnosis SNOMED-CT Code Diagnosis ICD10 Code Diagnosis Note [id number] Shantanu Block MD [facility] - [facility] [address] [place] [id number] 09/13/2022 16:02:21 09/13/2022 23:19:40 Essential hypertension [id number] I10 The patient went to the ER several days ago with an elevated BP, but she left without being seen. Today's visit was to check her vital signs and to see how she is doing. The patient has no complaints , and her BP is good. She will follow-up with her PCP. The patient agreed with this plan. [id number] TAO LEAL MD Main - [facility] [address] [place] [phone] 05/01/2023 12:30:16 05/01/2023 18:49:44 Urinary symptoms 471668416 R39.9 [id number] Josette Ham MD Main - [facility] [address] [place] [id number] 07/05/2023 17:11:52 07/06/2023 10:29:57 Corneal abrasion 12990033 S05.00XA [id number] Shantanu Block MD Main - [facility] [address] [place] [phone] 11/02/2023 10:01:18 11/02/2023 14:43:46 Hypoglycemia 272056677 E16.2 This 73-year-ol d female with type 2 diabetes, dementia, and schizophre armando had an episode yesterday where she seemed to be unresponsi ve. She is back to her baseline today. Her family suspects she had hypoglycem ia or a UTI as she has had in the past. Her FBS was 99 this morning. They are concerned that she might have a UTI. Her U/A was unremarkab le. She will follow-up with her PCP. The patient's family agreed with this plan. [id number] Lala Clarke MD Main - [address] [phone] 04/06/2024 14:12:06 04/16/2024 12:22:48 Fall W19.XXXA Health Concerns Section Related Observation LastModified by Organization Detai ls LastModified Time None Recorded Concern Status LastModified by Organization Details LastModified Time None Recorded Advance Directives Directive None Recorded Payers Encounter Date Sequence Insurance Name Policy Number Policy Hinkle Covered Member ID Hinkle Member ID Guarantor Name 09/13/2022 1 [facility] DOS ON OR AFTER 2022 - DUAL ELIGIBLE - ASSISTED OPTIONS AND ONE CARE (MEDICARE REPLACEMENT/ADV ANTAGE - HMO) Safia Barcenas [id number] Safia Cruz 05/01/2023 1 [employer] [facility] - DOS ON OR AFTER 2022 - DUAL ELIGIBLE - ASSISTED OPTIONS AND ONE CARE (MEDICARE REPLACEMENT/ADV ANTAGE - HMO) Safia Barcenas [id number] Safia Cruz 07/05/2023 1 [employer] [facility] - DOS ON OR AFTER 2022 - DUAL ELIGIBLE - ASSISTED OPTIONS AND ONE CARE (MEDICARE REPLACEMENT/ADV ANTAGE - HMO) Safia Barcenas [id number] Safia Cruz 11/02/2023 1 [employer] [facility] DOS ON OR AFTER 2022 - DUAL ELIGIBLE - ASSISTED OPTIONS AND ONE CARE (MEDICARE REPLACEMENT/ADV ANTAGE - HMO) Safia Barcenas [id number] Safia Barcenas 04/06/2024 1 [employer] [facility] - DOS ON OR AFTER 2022 - DUAL ELIGIBLE - ASSISTED OPTIONS AND ONE CARE (MEDICARE REPLACEMENT/ADV ANTAGE - HMO) Safia Barcenas [id number] Safia Barcenas Notes Date Note Type Note Provider Name and Address Organization Details Recorded Time 09/13/2022 text/html HPI: Patient with episode of elevated BP last Monday BP 160/100. Taken to ED but not evaluated BP improved but patient was having multiple trips to the bathroom that day with agitation. Underlying Dementia. BP improved and unknown status with urinary concerns. ...................... ...................... ...................... ...................... ...................... ...................... ......... CRC Nursing Assessment: Comments: CRC RN did not require any additional information to process this visit. Shantanu Block MD [address] [facility],[address], [place], [phone], [employer] 09/13/2022 16:05:49 05/01/2023 text/html HPI: Members daughter calling on behalf of member stating that she believes member might have a UTI. Member has dementia and at baseline she urinates frequently. Daughter states that as of 4 days ago member has become increasingly confused and has been urinating more frequently than normal. They did not notice urine being darker than normal in color or increasingly malodourous. Daughter states that member denies burning while urinating but d/t her dementia it is difficult to as her symptom questions. Member does not have a fever and no other symptoms. Would like a home visit to assess urine. PMH: includes but not limited to vascular dementia with behavioral disturbance, Paranoid schizophrenia, anxiety, type 2 diabetes mellitus with diabetic cataract, Cerebral atherosclerosis, HTN, HLD ...................... ...................... ...................... ...................... ...................... ...................... ......... CRC Nurse Triage Notes (Elizabeth August): Comments: CRC RN DID NOT NEED FURTHER SABINA RN ...................... ...................... ...................... ...................... ...................... ...................... ......... Case Picker Note From Esvin Neely: Pt? s daughter reports 4 days of increased confusion (dementia at baseline) and increased urinary frequency (25-30 times per day). Daughter reports hx of UTI? s and sts this is the pt? s classic presentation. Daughter denies CP, SOB, HURTADO, hematuria, dark urine, flank pain, ABD pain, f/n/v/d. Pt is alert to person and place, NAD. VSS. Afebrile. Non focal neuro exam. Normal gait. Lungs CTA. Benign ABD exam. No CVA tenderness. No LE edema. UA: +ABHINAV, -NIT, +PRO; pale yellow, clear. UC sent to [facility]. [facility] contacted and pt treated with cephalexin 500 mg PO. Pt/daughter instructed to stay well hydrated, f/u with PCP and to seek emergent medical care for new or worsening sx, which are reviewed with them. [facility] Lab Orders: urinalysis, dipstick: Performed culture, urine: Performed ...................... ...................... ...................... ...................... ...................... ...................... ......... Disposition: Fulfilled TAO LEAL MD [address] [facility], [place], [phone], ADRIANA Elvia ISMAELMAC 05/01/2023 13:01:34 07/05/2023 text/html HPI: Hx: Chronic Hep C, ALICE, Neuropathy.Patient with red slightly painful left eye. No known FB. No fever or URI symptoms. ...................... ...................... ...................... ...................... ...................... ...................... ......... CRC Nurse Triage Notes (Jana Carroll): Comments: HPI reviewed. No further information needed to process visit. ...................... ...................... ...................... ...................... ...................... ...................... ......... Case Picker Note From Kin Washington: Dispatched to the call address for the elderly female with an eye irritation. Pts daughter (and also caregiver) advise that Pt has dementia and is a poor historian. Pt goes to an adult day care during the day so cg is not always with her. Yesterday daughter noticed a small red spot on the corner of the pts left eye and today the red area is larger. Pt states it is mildly irritating but not itchy or painful. Pt denies any trauma to the area. Pt was found sitting at kitchen table, CAOx4, airway open and patent, breathing non labored, able to speak in full sentences, -JVD, skin PWD with good turgor, mucous membranes pink and moist, abd soft non tender/distended, pupils PERRL, +CMSx4. Red area to lateral side of left eye noted. C consulted. Script called into preferred pharmacy. Red flags discussed. ALL times are approx. ...................... ...................... ...................... ...................... ...................... ...................... ......... Disposition: Fulfilled Josette Ham MD [address] [facility], [place], [phone], [employer] 07/05/2023 18:53:49 11/02/2023 text/html HPI: Bette is a 73 yo female with hx of Vascular dementia, paranoid schizophrenia, anxiety, Bipolar, Type 2 DM, HLD, dysphagia, joint pain and osteopenia. Allergies to Duglas Inhibitors, Codeine, HCTZ, and Metformin. Bette's daughter Agata calling into the CRU asking that [facility] come out to see her Mother. Call originated from [phone]. Dgtr stating that around 730 p yesterday Bette passed out for about 5 minutes sitting in her chair. Dgtr stated she had a hard time waking her up for about 5 minutes and then she woke up. Per dgtr BP yesterday was 192/10o at 723 p and 170/102 at 740 p. Caller stated that Bette had a similar episode in August and they took her to the ER and they found her to have a UTI. Dgtr denies any fever, sob or chest pain or any other s/s. Per dgtr mbr is back to her baseline. Dtr reports Mbr is alert and happy this morning. FBS 99 this morning. Confirmed address and phone/[phone]. Instructed dgtr to call 911 and take Mbr to ER if Mbr passes out again and Caller agreed to do. This CRU RN placed [facility] referral in on Mbr's behalf and sent gc activity to CP referencing this call and TE. ...................... ...................... ...................... ...................... ...................... ...................... ......... CRC Nurse Triage Notes (Elizabeth August): Chief Complaints: Syncope/Dizziness/Ligh theadedness, UTI/Pyelonephritis PMH: Diabetes, Hypertension Other Allergies: Duglas Inhibitors, Codeine, HCTZ, and Metformin Comments: CRC RN DID NOT NEED FURTHER INFO Case Picker Organization Information for [facility] Legal Name: [facility] Transportation Address: [address] [place] [address], [place] [address], Print Cutter: Maycol Easton MD [place] No.: [id number] Case Picker POC Test Results from [facility] Urine Dipstick (09:58:17) Urine leukocytes: NR Urine nitrites: NR Urine urobilinogen: 0.2(3.5) URO Urine protein: 30(0.3) PRO Urine pH: 5 pH Urine blood: NR Urine specific gravity: 1.000 SG Urine ketones: NR Urine bilirubin: NR Urine glucose: NR Shantanu Block MD [address] [facility],[address], [place], [id number], [place] [facility] 11/02/2023 10:13:49 04/06/2024 text/html HPI: Member's daughter Mitzy, calling into [facility] line requesting home visit for evaluation. Mitzy reports member had repeated fall last night. Mitzy reports member is currently sleeping in bed and is not in acute distress. Member has dementia and impaired mobility and kept getting out of bed during the night. Member had left arm pain last night, but none at this time. Member is confused at baseline, and does not have a change in mental status. ...................... ...................... ...................... ...................... ...................... ...................... ......... [facility] Nurse Triage Notes (Prasanth Samayoa): Chief Complaints: Falls PMH: Hypertension, Bipolar Disorder, Diabetes Mellitus Type 2, Epilepsy/Seizure Disorder, Gastroesophageal Reflux Disease (GERD), Dementia (e.g., Alzheimer's Disease) PMH Reviewed at 04/06/2024 08:24 Allergies Reviewed at 04/06/2024 - 08:24 Comments: Reviewed HPI ...................... ...................... ...................... ...................... ...................... ...................... ......... Case Picker Note From Esvin Neely: This visit is for a 73-year-old female with a history including but not limited to HTN, bipolar, DM type II, epilepsy, GERD, dementia was well known to myself. Patient's daughter/primary caregiver requested the visit to have her left arm assessed. Daughter states that the patient has fallen out of bed and in the hallway twice in the past week, most recently last night. Both falls were unwitnessed however the daughter was quickly by her side and states that she does not believe there to be any loss of consciousness. Daughter states the patient's dementia seems to be worsening and she's no longer directable especially at night when she tries to go to the bathroom. Daughter states they just ordered a side rail for her bed which will prevent her from getting up at night. Patient complains of mild pain in her left upper arm. Daughter states she is treating the pain with ibuprofen. Daughter denies the patient having any urinary symptoms or complaining of headaches, chest pain, shortness of breath, fevers, nausea, vomiting, diarrhea. Patient presents awake and alert to baseline, in no acute distress and is speaking full sentences. Her vital signs are reasonably stable and she is afebrile. Nonfocal neurological exam. Lungs are clear throughout auscultation. Abdomen is soft, nontender, nondistended. No lower extremity edema. Bruising on her left upper arm and bilateral knees (pictures uploaded). Patient also has a bruise around her left eye (picture uploaded), reported fall last Monday. Patient has full range of motion of all of her extremities and has normal sensation and pulses. We discussed the diagnostic uncertainty of home visits and the risk associated with this. In this case, the patient? s daughter and I felt this to be an acceptable and reasonable amount of risk given the benefit of avoiding an ED visit. I provided education on the increased risk of bleeding when taking ibuprofen and I recommend they treat any pain with Tylenol. I provided recommended Tylenol dosing based on the patient's weight. I also recommend the patient follow-up with her PCP and/or neurologist and to present to the emergency department for any new or worsening severe symptoms such as chest pain, shortness of breath, severe weakness especially to one side, high fever, altered mental status. The patient's daughter and family were given the opportunity to ask questions and are agreeable to this plan. ...................... ...................... ...................... ...................... ...................... ...................... ......... [facility] Consulted: Lala Clarke ...................... ...................... ...................... ...................... ...................... ...................... ......... Disposition: Fulfilled Lala Clarke MD [address] [facility],[address] [facility], [place], [id number], [employer] 04/06/2024 19:16:12 OBGyn Episode No OBEpisode recorded.
--- OUTSIDE RECORDS SUMMARY | 2024-05-09 11:10 | XMS_ITS | Encounter Summary ---
Author Organization [employer] Address [address] [place] [address] 7 [place] [address] Care Team Providers Care Scrub Woman Name Role Phone Crystal Rosario MD Primary Care Provider [phone] Encounter Details Date Type Department Care Team (Latest Contact Info) Description 07/07/2020 Abstract [facility] CONVERSIONS Dental, Provider, DDS Social History Tobacco Use Types Packs/Day Years Used Date Smoking Tobacco: Never Assessed Comments Unknown Sex and Gender Information Value Date Recorded Sex Assigned at Female 12/06/2021 10:30 AM EDT Legal Sex Female 10:30 AM EDT Gender Identity Female 12/06/2021 10:30 AM EDT Sexual Orientation Straight 12/06/2021 10 :30 AM EDT documented as of this encounter Plan of Treatment Not on file documented as of this encounter Visit Diagnoses Not on filedocumented in this encounter Care Teams Scrub Woman Relationship Specialty Start Date End Date Crystal Rosario MD [address] [place] [address] PCP - General Family Medicine 02/21/20 documented as of this encounter
--- OUTSIDE RECORDS SUMMARY | 2024-05-09 11:10 | XMS_ITS | Encounter Summary ---
Author Organization [employer] Address [address] [place] [address] [address] [place] [address] Care Team Providers Care Acrobatic Rigger Name Role Phone Crystal Rosario MD Primary Care Provider [phone] Encounter Details Date Type Department Care Team ([facility] st Contact Info) Description 01/14/2022 Orders Only [facility] PEDS [address] [place], [place] [id number] Crystal Rosario MD [address] [place], [place] [phone] Esophageal dysmotility (Primary Dx); Osteopenia, unspecified location Social History Tobacco Use Types Packs/Day Years [...] documented as of this encounter Visit Diagnoses Diagnosis Esophageal dysmotility- Primary Dyskinesia of esophagus Osteopenia, unspecified location documented in this encounter Care Teams Acrobatic Rigger Relationship Specialty Start Date End Date Crystal Rosario MD [address] [place] [address] PCP - General Family Medicine 02/21/20 documented as of this encounter
--- OUTSIDE RECORDS SUMMARY | 2024-05-09 11:11 | XMS_ITS | Encounter Summary ---
Author Organization [employer] Address [address] [facility] 7t [place] [address] Care Team Providers Care Abattoir Manager Name Role Phone Crystal Rosario MD Primary Care Provider [phone] Encounter Details Date Type Department Care Team (Late st Contact Info) Description 07/12/2023 Orders Only [facility] [address] [place] [address] Provider, MD Izzy Social History Tobacco Use Types Packs/Day Years Used Date Smoking Tobacco: Never Passive Smoke Exposure: Never Smokeless Tobacco: Never Alcohol Use Standard Drinks/Week Comments Never 0 (1 standard drink = 0.6 oz pur e alcohol) Housing Stability Answer Date Recorded What is your housing situation today? I have emily gaming 01/09/[address] you li ve. Do you have problems with any of the following? None of the above 01/09/2023 Food Insecurity Answer Date Recorded Within the past 12 months, y ou worried that your food would run out before you got money to buy more: Never True 01/09/2023 Within the past 12 months,th e food you bought just didn't last and you didn't have enough money to get more: Never True 05/2022 Transportation Answer Date Recorded In the past 12 months, has l ack of transportation kept you from medical appts, meetings, work or from getting things needed for daily living? No 01/09/2023 Utilities Answer Date Recorded In the past 12 months, has t he electric, gas, oil or water company threatened to shut off services in your home? No 01/09/2023 Comments Unknown Sex and Gender Information Value Date Recorded Sex Assigned at Female 12/06/2021 10:30 AM EDT Legal Sex Female 10:30 AM EDT Gender Identity Female 12/06/2021 10:30 AM EDT Sexual Orientation Straight 12/06/2021 10 :30 AM EDT documented as of this encounter Plan of Treatment Not on file documented as of this encounter Procedures Procedure Name Priority Date/Time Associated Diagnosis Comments DERMATOPATHOLOGY REPORT Routine 06/29/19 11:11 AM EDT documented in this encounter Results * Dermatopathology Report (06/29/2023 11:11 AM EDT) us Historical Provider LAB BLOOD ORDERABLES Wendy l Result documented in this encounter Visit Diagnoses Not on filedocumented in this encounter Care Teams Abattoir Manager Relationship Specialty Start Date End Date Crystal Rosairo MD [address] [place] [address] PCP - General Family Medicine 02/21/20 documented as of this encounter
--- OUTSIDE RECORDS SUMMARY | 2024-05-09 11:11 | XMS_ITS | Encounter Summary ---
Author Organization [employer] Address [address] [place] [address] [address], [place] [address] Care Team Providers Care Lobby Porter Name Role Phone Crystal Rosario MD Primary Care Provider [phone] Reason for Visit * Reason Onset Date Comments r/s appt 11/04/2022 Encounter Details Date Type Department Care Team ([facility] st Contact Info) Description 11/04/2022 Telephone [facility] MED & PEDS [address] [place] [address] Crystal Rosario MD [address] [place] [address] r/s appt Social History Tobacco Use Types Packs/Day Years Used Date Smoking Tobacco: Never Passive Smoke Exposure: Never Smokeless Tobacco: Never Alcohol Use Standard Drinks/Week Comments Never 0 (1 standard drink = 0.6 oz pur e alcohol) Comments Unknown Sex and Gender Information Value Date Recorded Sex Assigned at Female 12/06/2021 10:30 AM EDT Legal Sex Female 10:30 AM EDT Gender Identity Female 12/06/2021 10:30 AM EDT Sexual Orientation Straight 12/06/2021 10 :30 AM EDT documented as of this encounter Miscellaneous Notes * Telephone Encounter - Graciela Hodges - 11/04/2022 1:18 PM EDT Tc from daughter requesting to r/s appt for pt on 12/05/2022 for DM Follow up. Please contact pt daughter at [phone] documented in this encounter Plan of Treatment Not on file documented as of this encounter Visit Diagnoses Not on filedocumented in this encounter Care Teams Lobby Porter Relationship Specialty Start Date End Date Crystal Rosario MD [address] [place] [id number] PCP - General Family Medicine 02/21/20 documented as of this encounter
--- OUTSIDE RECORDS SUMMARY | 2024-05-09 11:11 | XMS_ITS | Clinical Summary ---
Author Organization [facility] Address [address] [place] [address] Care Team Providers Care Precision Grinder External Name Role Phone Renetta Wan MD Primary Care Provider [phone] Immunizations Name Administration Dates Next Due Moderna SARS-CoV-2 COVID-19, mRNA, LNP-S, preservative free 06/28/2021,04/01/2020 Medical History Medical History Date Comments Hypertension 05/05/2011 DX:Hypertension Historical Medical DX 05/05/2011 DX:Hyperli pidemia LDL goal < 130 Obesity, unspecified 05/05/2011 DX:Obesity, unspecified Hepatitis C 05/05/2011 DX:Hepatitis C Breast cancer 05/05/2011 DX:Breast cancer (HCC) Arthritis 05/05/2011 DX:Arthritis Esophageal reflux 05/05/2011 DX:Esophageal reflux Elevated LFTs 05/05/2011 DX:Elevated LFTs Asthma 05/05/2011 DX:Asthma 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 Social History Tobacco Use Types Packs/Day Years Used Date Smoking Tobacco: Never Alcohol Use Standard Drinks/Week Comments Not Asked 0 (1 standard drink = 0.6 oz pur e alcohol) Comments Unknown Sex and Gender Information Value Date Recorded Sex Assigned at Not on file Legal Sex Female 2:32 PM EST Gender Identity Not on file Sexual Orientation Not on file Obstetrics History Last Filed Vital Signs Vital Sign Reading Time Taken Comments Blood Pressure - - Pulse - - Temperature - - Respiratory Rate - - Oxygen Saturation - - Inhaled Oxygen Concentration - - Weight 56.7 kg (125 lb) 10/20/2023 11:00 AM EDT Height 149.9 cm (4' 11 ) 10/20/2023 11:00 AM EDT Body Mass Index 25.25 10/20/2023 11:00 AM EDT Plan of Treatment Health Maintenance Due Date Last Done Comments DTaP,Tdap,and Td Vaccines (1 - Tdap) 09/26/1967 Hepatitis A Vaccines (1 of 2 - Risk 2-dose series) 09/26/1967 Pneumococcal Vaccine: 50+ Years (1 of 2 - PCV) 09/26/1967 Zoster Vaccines (1 of 2) 09/26/1967 Hepatitis B Vaccines (1 of 3 - Risk 3-dose series) 2008 COVID-19 Vaccine (3 - Modern a risk series) 07/26/2021 06/28/2021, 04/01/2020 Cholesterol Screening (Lipid Panel) 01/05/2022 Colorectal Cancer Screening: Colonoscopy 01/05/2022 Depression Screening 01/05/2022 Falls Risk Assessment 01/05/2022 Hepatitis C Screening 01/05/2022 Osteoporosis Screening (Bone Density Screening) 01/05/2022 Social Influencers of Health Screening 01/05/2022 Hypertension/CHF/CAD Annual BMP Blood Test 08/31/2023 RSV Immunization Adult Patients (1 - 1-dose 75+ series) 09/26/2023 Influenza Vaccine (#1) 2023 HIB Vaccines Aged Out No longer eligi ble based on patient's age to complete this topic HPV Vaccines Aged Out No longer eligi ble based on patient's age to complete this topic IPV Vaccines Aged Out No longer eligi ble based on patient's age to complete this topic MMR Vaccines Aged Out No longer eligi ble based on patient's age to complete this topic Meningococcal ACWY Vaccine Aged Out N o longer eligible based on patient's age to complete this topic Meningococcal B Vacine Aged Out No lo nger eligible based on patient's age to complete this topic RSV Immunization Patients Under 20 months Aged Out No longer eligible b ased on patient's age to complete this topic Varicella Vaccines Aged Out No longer eligible based on patient's age to complete this topic Care Teams Precision Grinder External Relationship Specialty Start Date End Date Renetta Wan MD [address] [place] [address] PCP - General 07/04/23
--- OUTSIDE RECORDS SUMMARY | 2024-05-09 11:11 | XMS_ITS | Encounter Summary ---
Author Organization [employer] Address [address] [facility] 7t [place] [address] Care Team Providers Care Developer Programmer Name Role Phone Crystal Rosario MD Primary Care Provider [phone] Reason for Visit * Reason Comments Med Refill Encounter Details Date Type Department Care Team ([facility] Contact Info) Description 11/24/2023 Refill [facility] MED & PEDS [address] [place] [address] Crystal Rosario MD [address] [place] [address] Insomnia, unspecified type Social History Tobacco Use Types Packs/Day Years [...] as of this encounter Visit Diagnoses Diagnosis Insomnia, unspecified type documented in this encounter Care Teams Developer Programmer Relationship Specialty Start Date End Date Crystal Rosario MD [address] [place] [id number] PCP - General Family Medicine 02/21/20 documented as of this encounter
--- OUTSIDE RECORDS SUMMARY | 2024-05-09 11:11 | XMS_ITS | Encounter Summary ---
Author Organization [employer] Address [address] [facility] 7t [place] [address] Care Team Providers Care Hand Bindery Assembly Worker Name Role Phone Crystal Rosario MD Primary Care Provider [phone] Reason for Visit * Reason Comments Med Refill Encounter Details Date Type Department Care Team ([facility] Contact Info) Description 03/31/2023 Refill [facility] [address] [place] [address] Crystal Rosario MD [address] [place] [address] Social History Tobacco Use Types Packs/Day Years [...] t he electric, gas, oil or water [employer] threatened to shut off services in your [...] on filedocumented in this encounter Care Teams Hand Bindery Assembly Worker Relationship Specialty Start Date End Date Crystal Rosario MD [address] [place] [address] PCP - General Family Medicine 02/21/20 documented as of this encounter
--- OUTSIDE RECORDS SUMMARY | 2024-05-09 11:11 | XMS_ITS | Clinical Summary ---
Author Organization [employer] Address [address] [place] [address] 7 [place] [address] Care Team Providers Care [employer] Miner Name Role Phone Crystal Rosario MD Primary Care Provider [phone] Allergies Active Allergy Reactions Criticality Noted Date Comments Duglas Inhibitors Cough 10/02/2015 Codeine Other 10/02/2015 Hydrochlorothiazide 10/02/2015 Other reaction(s): hyponatremia Metformin 10/02/2015 Other reaction(s): lactic acidosis Medications OLANZapine (ZyPREXA) 5 MG tablet Take 1 tablet by mouth. Active acetaminophen (Tylenol) 500 MG tablet Take 2 tablets by mouth in the morning and 2 tablets at noon and 2 tablets in the evening and 2 tablets before bedtime. 0 Active albuterol (5 MG/ML) 0.5% nebulizer solution Inhale 0.5 mL in the morning and 0.5 mL at noon and 0.5 mL in the evening. 1 Active albuterol (ProAir HFA) 108 (90 Base) MCG/ACT inhaler Inhale 2 puffs every 4 (four) hours. 1 Active calcium carbonate (Os-Rosalio) 1250 (500 Ca) MG tablet take 1 tablet bid po 2 Active clonazePAM (KlonoPIN) 0.5 MG tablet Take 1 tablet by mouth every 12 (twelve) hours. Active Blood Glucose Monitoring Suppl (ONE TOUCH ULTRA 2) w/Device kit 1 Device with breakfast, with lunch, and with evening meal. 1 kit 3 Active memantine (Namenda) 10 MG tablet Take by mouth. Activ e omeprazole (PriLOSEC) [address] capsule Take 1 capsule (20 mg) by mouth every 12 (twelve) hours. 180 capsule 1 4 Active losartan (Cozaar) 25 MG tablet TAKE ONE TABLET EVERY MORNING 90 tablet 4 4 Active atorvastatin (Lipitor) 40 MG tablet TAKE ONE TABLET EVERY NIGHT AT BEDTIME Active glucose blood test strip Provide One touch Ultra strips to check BID 100 each 12 4 11/16/19 25 Active Lancets (OneTouch Delica Plus [id number]) mis Apply 1 Units topically 2 times daily. 100 each 11 4 Active Oyster Shell Calcium 500 MG tablet TAKE ONE TABLET IN THE MORNING AND EVENING 180 tablet 1 4 Active mirtazapine (Remeron) 15 MG tabletIndication s:Insomnia, unspecified type TAKE ONE TABLET EVERY NIGHT AT BEDTIME 90 tablet 1 4 Active cholecalciferol VITAMIN D (Vitamin D-3) 50 MCG (1999 UT) tabletIndication s:Osteopenia, unspecified location TAKE ONE TABLET EVERY MORNING 90 tablet 3 4 Active metoprolol tartrate (Lopressor) 25 MG tablet TAKE 1 TABLET IN THE MORNING AND EVENING 180 tablet 1 5 Active amLODIPine (Norvasc) 5 MG tabletIndication s:Hypertension, unspecified type TAKE 1 TABLET BY MOUTH EVERY EVENING 90 tablet 1 5 Active Active Problems Problem Noted Date Diagnosed Date Physical exam 05/01/2023 Assessment & Plan (05/02/2023 11:28 AM EDT): - Encourage light physical activity as tolerated to maintain mobility and prevent further decline Had lengthly discussion with patient and daughter about goals of care, code status given her mental decline in the last couple of months. Patients dementia has worsen. Her appetite is low and she is declining. At this moment will discontinue statin and will proceed moving forward on how to simplify her regimen, deprescribe and make her comfortable. Esophageal dysmotility 02/02/2022 Assessment & Plan (12/20/2022 1:20 PM EST): Patient following with GI and also on nutritional supplementation. She has indeed lost 1 lbs in the last 3 months, her weight is relatively stable, indicating benefit of continued nutritional supplementation. Drinking a nutritional supplement will provide this individual with needed nutritions and calories, to prevent further deterioration. Patient also experiencing social isolation caused by reduced mobility which could lead to inadequate intake due to eating alone and difficulty preparing meals. Assessment & Plan (07/29/2022 3:12 PM EDT): Patient with continued dysphagia. Refer to gastroenterology for further evaluation. Neuropathic pain 07/09/2018 Asthenia 07/09/2018 Type 2 diabetes mellitus 11/27/2017 Assessment & Plan (11/16/2023 3:20 PM EDT): Controlled.Discontinued Glipizide (Glucotrol) 5 MG tablet. Relevant orders: -Glucose blood test strip -Lancets (Argos TherapeuticsTouch Delica Plus [id number]) misc -POCT Glucose -POCT HGB A1C Assessment & Plan (05/01/2023 9:38 PM EDT): Controlled: will keep treating and monitoring. Advised to keep taking glucose levels at home. Labs: Glucose, HGB A1C Assessment & Plan (12/19/2022 10:40 AM EST): Controlled: will keep treating and monitoring. Advised to keep taking glucose levels at home. Assessment & Plan (07/29/2022 3:11 PM EDT): Controlled. Continue current regimen. Will follow up in 6 months. Will send labs to recheck levels. Assessment & Plan (02/02/2022 4:56 PM EST): POC a1c controlled. Cont current regimen. Patient has not been able to get prescribed nutritional supplementation since 3 months ago and has bought OTC, she has been on supplementation for more then 3 years given failure to thrive in the setting of esophageal dysmotility, prior hx of breast CA, dementia, bipolar disorder and hiatal hernia. She is already followed by specialist and also had surgery to correct herniation but continues requiring supplementation to achieve her nutritional needs and will benefit of continuation of these at this moment. I have send message to DME specialist about her supplementation need, unclear requirement to approve her supplementation. Will need to followup on this. Recurrent primary malignant neoplasm of left breast in female 11/09/2017 Obstructive sleep apnea syndrome 03/10/2017 Sensorineural hearing loss, bilateral 03/21/2016 Tremor 01/29/2016 Osteopenia 10/02/2015 Hypertension 10/02/2015 Assessment & Plan (07/29/2022 3:11 PM EDT): Controlled. Continue current regimen. Assessment & Plan (02/02/2022 4:53 PM EST): Patient w/ elevated BP today, reports compliance with meds, diastolic less then 65 mmHg, hold off changes but scheduled for nursing appt. - If SBP < 130/DBP <80 mmHg in more than 75% of home self-monitoring, continue current medication regimen and make f/u with PCP in 3 month - If SBP >130-165/DBP >80-115 mmHg , increase losartan to 50 mg and f/u with PCP in 1 month - If SBP > 165/ DBP> 115 mmHg, consult with covering provider - If SBP <90/DBP <50 mmHg, consult with covering provider. Chronic hepatitis C 10/02/2015 Bipolar disorder 10/02/2015 Assessment & Plan (05/01/2023 9:39 PM EDT): Continue same treatment regimen. Bilateral tinnitus 10/02/2015 Encounters Date Type Department Care Team Description 05/02/2024 2:45 PM EDT Office Visit [facility] [address] [place] [address] Renetta Wan MD Bilateral tinnitus (Primary Dx); Acute pain of left shoulder; Left elbow pain; Pain in left wrist; Physical deconditioning; Gait abnormality; Type 2 diabetes mellitus with diabetic neuropathy, unspecified whether computer terminal operator insulin use ([facility]) 05/02/2024 Travel 04/05/2024 Telephone [facility] [address] [place] [address] Crystal Rosario MD Durable Medical Equipment 02/17/2024 Refill [facility] [address] [place] [address] Crystal Rosario MD Hypertension, unspecified type from Last 3 Months Immunizations Name Administration Dates Next Due Hep A, Adult 05/01/2023 Hep B, adult 11/27/2017,03/10/2017,10/14/2015 Influenza High-dose Quadriva lent Preservative Free 11/19/2022,11/30/2020 Influenza, High Dose Seasona l, Preservative Free 11/16/2023,12/24/2018,11/27/2017,11/04 Influenza, seasonal, injecta ble, preservative free 12/12/2015 Moderna Covid-19 Vaccine 12+ 06/28/2021,04/30/19 21,04/01/2020 Pfizer Covid-19 Vaccine 12+ 05/01/2023 Pneumococcal Conjugate PCV 13 10/14/2015 Pneumococcal Polysaccharide PPSV23 05/26/2018,,01/11/2013 Tdap 01/08/2016 Zoster, Recombinant 09/12/2019,01/21/2019 Zoster, live 01/08/2016 Social History Tobacco Use Types Packs/Day Years Used Date Smoking Tobacco: Never Passive Smoke Exposure: Never Smokeless Tobacco: Never Tobacco Cessation:Counseling Given: Not Answered Alcohol Use Standard Drinks/Week Comments Never 0 [...] Orientation Straight 12/06/2021 10 :30 AM EDT Last Filed Vital Signs Vital Sign Reading Time Taken Comments Blood Pressure 138/68 05/02/2024 2:03 PM EDT Pulse 92 05/02/2024 2:03 PM EDT Temperature 36.7 ??C (98 ??F) 05/02/2024 2:03 PM EDT Respiratory Rate 19 05/02/2024 2:03 PM EDT Oxygen Saturation 96% 05/02/2024 2:03 PM EDT Inhaled Oxygen Concentration - - Weight 58.5 kg (129 lb) 05/02/2024 2:03 PM EDT Height 139.7 cm (4' 7 ) 05/02/2024 2:03 PM EDT Body Mass Index 29.98 05/02/2024 2:03 PM EDT Plan of Treatment Health Maintenance Due Date Last Done Comments CT Colonography 1950 Colonoscopy 1950 Colorectal Cancer Screening 1950 Depression Screening 1950 FIT DNA/Cologuard 1948 FIT 1948 FOBT 1950 Sigmoidoscopy 1948 Eye Exam 1958 Alcohol/Substance Use Screening 1960 Diabetes: Urine Protein Screening 06/21/2022 06/21/2021, 08/28/2019 Lipid Panel 08/20/2023 08/19/2022, 0504/2021, 08/27/2019 RSV Patients and Patients Aged 60 years or older (1 - 1-dose 75+ series) 09/26/2023 COVID-19 Vaccine ( season) 2023 05/01/2023, 11/19/2022, 11/03/2021, Additional history exists Hepatitis A Vaccines (2 of 2 - Risk 2-dose series) 11/01/2023 05/01/2023 Diabetes: Foot Exam 12/20/2023 12/19/2022, 12/19/2022, 12/19/2022, Additional history exists SDOH Screening 04/23/2024 04/24/2023 Mammogram 07/09/2024 07/10/2023, 07/08, 07/28/2022, Additional history exists Diabetes: Hemoglobin A1C 11/02/2024 025, 11/16/2023, 05/01/2023, Additional history exists Tobacco Screening 05/02/2025 05/02/2024 DTaP/Tdap/Td Vaccines (2 - Td or Tdap) 01/07/2026 01/08/2016 Hepatitis B Vaccines Completed 11/27/2017, 03/10/2017, 10/14/2015 Pneumococcal Vaccine: 50+ Years Completed 05/26/2018, 11/04/2016, 10/14/2015, Additional history exists Zoster Vaccines Completed 09/12/2019, 01/06, 01/08/2016 Influenza Vaccine Completed 11/16/2023, , 11/30/2020, Additional history exists HIB Vaccines Aged Out No longer eligi ble based on patient's age to complete this topic HPV Vaccines Aged Out No longer eligi ble based on patient's age to complete this topic IPV Vaccines Aged Out No longer eligi ble based on patient's age to complete this topic Meningococcal Vaccine Aged Out No andrez john eligible based on patient's age to complete this topic RSV under 20 months Aged Out No longe r eligible based on patient's age to complete this topic Rotavirus Vaccines Aged Out No longer eligible based on patient's age to complete this topic Procedures Procedure Name Priority Date/Time Associated Diagnosis Comments POCT GLUCOSE Routine 05/02/2024 2:55 PM EDT Type 2 diabetes mellitus with diabetic neuropathy, unspecified whether nursing home insulin use (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) BI MAMMOGRAM DIAGNOSTIC TOMOSYNTHESIS BILATERAL Routine 07/10/2023 2:20 PM EDT LIPID PANEL, STANDARD Routine 08/19/2022 9:08 AM EDT ALBUMIN, RANDOM URINE W/CREATININE Routine 06/21/2021 8:30 AM EDT from Last 3 Months or Most Recently Relevant to Health Maintenance Results * POCT Glucose (05/02/2024 2:55 PM EDT) Glucose Blood, POC 130 60 - 200 mg/dL QC Media Lot # [id number] Lot# Expiration Date 782,025 Comment:random Blood Capillary blood specimen / Unknown 05/02/2024 2:55 PM EDT us Renetta Wan MD POINT OF CARE TEST ENTER/ED IT ORDERABLES Final Result * POCT HGB A1C (05/02/2024 2:54 PM EDT) Hemoglobin A1C 5.4 4.0 - 6.0 % QC Media Lot # [id number] Lot# Expiration Date ,026 Blood 05/02/2024 2:54 PM EDT us Renetta Wan MD POINT OF CARE TEST ENTER/ED IT ORDERABLES Final Result * BI Mammogram Diagnostic Tomosynthesis Bilateral (07/10/2023 2:20 PM EDT) Anatomical Region Laterality Modality Breast Bilateral Mammography 07/10/2023 2:20 PM EDT Narrative 07/10/2023 3:07 PM EDT ? [facility] ? [address] ?[place] [address] ? Mammography Report ? Signed ? Patient: Narinder,Safia ?MR#: [id number] ? : 1950 ?Acct:[id number] ? Age/Sex: 72 / F ?ADM Date: 06/03/24 ? Loc: HO.MAMMO ? Attending Dr: Crystal Rosario MD ? Ordering Physician: Crystal Rosario MD ?Results: 2Beni ?? gn Findings ? Date of Service: 07/10/23 ?Follow Up: 1 Year From Orig ?? inal Mammogram ? Procedure(s): MM tomosynthesis diagnostic BI ?? Accession Number(s): [id number] ? cc: Crystal Rosario MD ? EXAMINATION: ?? MM DIAGNOSTIC DIGITAL BREAST TOMOSYNTHESIS, BILATERAL ? CLINICAL INFORMATION: ? Diagnostic for follow-up left breast calcifications. Patient due for ?? bilateral screening. Prior history of bilateral breast cancer, most ?? recently on the left in 2018. Left excisional biopsy for calcifications ?? upper quadrant 20 1020 yielding fat necrosis, calcifications, and ?? chronic inflammation. ? COMPARISON: ?? Mammography: 07/01/2022, 06/18/2021, 12/03/2020, 05/18/2020 (BI-RADS ?? 0), 03/18/2019, 02/21/2019,, 11/01/2017. ? TECHNIQUE: ?? Digital breast tomosynthesis is performed in both the craniocaudal and ?? mediolateral oblique views along with computer-aided detection (CAD). ?? Synthesized 2D images are generated from the tomosynthesis. In ?? addition, 2-D spot magnification left CC views x2, exaggerated lateral ?? CC magnification views x4, and left mediolateral magnification view x1 ?? were also obtained. Examination technically limited requiring 2 ?? technologists to obtain best images possible. Exam interpreted in light ?? of this limitation. ? FINDINGS: ?? The breasts are heterogeneously dense, which may obscure small masses ?? (ACR BI-RADS breast composition Category c). ? Stable post surgical changes are seen bilaterally without significant ?? change. The right breast is extremely small with microcalcifications ?? and a stable parenchymal pattern. ??The left breast is also somewhat ?? small, and the calcifications remote from the lumpectomy site in the ?? upper outer aspect which are short and linear have remained unchanged ?? allowing for technical limitations since May 2020, and are hence ?? benign, showing a 3 year stability. There are no suspicious features. ?? There are no suspicious masses, new regions of architectural ?? distortion, or developing asymmetries in either breast. There are ?? stable dystrophic calcifications bilaterally. ? MM/MM tomosynthesis diagnostic BI ?? IMPRESSION: ?? -There are no findings suspicious for malignancy in either breast. ? -There are stable post therapeutic changes and benign findings in both ?? breasts without significant change. ? -Linear segmental calcifications in the upper outer left breast have ?? remained stable since May 2020, and are hence benign, showing ?? stability over 3 years. No further follow-up warranted. ? -Recommend this patient return to routine annual screening to include ?? both breasts. ? ASSESSMENT: ? BI-RADS BI-RADS 2 - Benign Findings ? RECOMMENDATION: ?? 1 year F/U ? Results were provided to the patient at time of visit by the ?? technologist. ? This patient's information was entered into a reminder system with a ?? target due date for their next mammogram. ? Dictated By: ?Kwadwo Dumas MD ? Signed By: ?<Electronically signed by Kwadwo Dumas MD in OV> ?07/10/23 1503 ? DD/ 1420 ? TD/TT: ? [employer] Assembler: ? Procedure Note Leticia Mercer - 07/10/2023 Mai [facility] [address] [place] [address] Mammography Report Signed Patient: Rene Barcenas#: [id number] : 9Acct:[id number] Age/Sex: 72 / FADM Date: 07/10/23 Loc: HO.MAMMO Attending Dr: Crystal Rosario MD Ordering Physician: Crystal Rosario MDResults: 2Beni gn Findings Date of Service: 07/10/23Follow Up: 1 Year From Orig ina Mammogram Procedure(s): MM tomosynthesis diagnostic BI Accession Number(s): [id number] cc: Crystal Rosario MD EXAMINATION: MM DIAGNOSTIC DIGITAL BREAST TOMOSYNTHESIS, BILATERAL CLINICAL INFORMATION: Diagnostic for follow-up left breast calcifications. Patient due for bilateral screening. Prior history of bilateral breast cancer, most recently on the left in 2018. Left excisional biopsy for calcifications upper quadrant 20 1020 yielding fat necrosis, calcifications, and chronic inflammation. COMPARISON: Mammography: 07/01/2022, 06/18/2021, 12/03/2020, 05/18/2020 (BI-RADS 0), 03/18/2019, 02/21/2019,, 11/01/2017. TECHNIQUE: Digital breast tomosynthesis is performed in both the craniocaudal and mediolateral oblique views along with computer-aided detection (CAD). Synthesized 2D images are generated from the tomosynthesis. In addition, 2-D spot magnification left CC views x2, exaggerated lateral CC magnification views x4, and left mediolateral magnification view x1 were also obtained. Examination technically limited requiring 2 technologists to obtain best images possible. Exam interpreted in light of this limitation. FINDINGS: The breasts are heterogeneously dense, which may obscure small masses (ACR BI-RADS breast composition Category c). Stable post surgical changes are seen bilaterally without significant change. The right breast is extremely small with microcalcifications and a stable parenchymal pattern. The left breast is also somewhat small, and the calcifications remote from the lumpectomy site in the upper outer aspect which are short and linear have remained unchanged allowing for technical limitations since May 2020, and are hence benign, showing a 3 year stability. There are no suspicious features. There are no suspicious masses, new regions of architectural distortion, or developing asymmetries in either breast. There are stable dystrophic calcifications bilaterally. MM/MM tomosynthesis diagnostic BI IMPRESSION: -There are no findings suspicious for malignancy in either breast. -There are stable post therapeutic changes and benign findings in both breasts without significant change. -Linear segmental calcifications in the upper outer left breast have remained stable since May 2020, and are hence benign, showing stability over 3 years. No further follow-up warranted. -Recommend this patient return to routine annual screening to include both breasts. ASSESSMENT: BI-RADS BI-RADS 2 - Benign Findings RECOMMENDATION: 1 year F/U Results were provided to the patient at time of visit by the technologist. This patient's information was entered into a reminder system with a target due date for their next mammogram. Dictated By: Kwadwo Dumas MD Signed By: <Electronically signed by Kwadwo Dumas MD in OV> 07/10/23 1503 DD/ 1420 TD/TT: [employer] Assembler: us Crystal Rosario MD IMG BI PROCEDURES Final Resul t * Lipid Panel, Standard (08/19/2022 9:08 AM EDT) Triglycerides 68 mg/dL [facility] Comment:Desirable Triglyceri de: less than 150 mg/dLBorderline High Triglyceride 150-199 mg/dLHigh Triglyceride: 200-499 mg/dLVery High Triglyceride: greater than or equal to 5OO mg/dL Cholesterol 120 mg/dL [facility] Comment:Desirable Cholestero l: less than 200 mg/dLBorderline High Cholesterol: 200-239 mg/dLHigh Cholesterol: greater than 239 mg/dL LDL Cholesterol Calculated 62 mg/dl [facility] Comment:Desirable LDL: less than 100 mg/dLNear Optimal/Above Optimal LDL: 110- 129 mg/dLBorderline High LDL: 130-159 mg/dLHigh LDL: 160-189 mg/dLVery High LDL: greater than or equal to 190 mg/dL HDL Cholesterol 45 mg/dL [facility] Comment:Desirable HDL: great er than 40 mg/dL Note: This HDL assay may give artificially low results in patients with liver disease. 08/19/2022 9:08 AM EDT 08/19/2022 2:18 PM EDT us [facility] External Provider LAB BLO OD ORDERABLES Final Result Performing Organization Address [facility]/ZIP Co de Phone Number [facility] [address] [place] [address] [phone] * ALBUMIN, RANDOM URINE W/CREATININE (06/21/2021 8:30 AM EDT) Microalbumin Urine 0.6 See Note: mg/dL [facility] Comment: Reference Range: ?? Reference Range Not established Microalb/Creat Ratio 12 <30 mcg/mg creat [facility] Comment: ?? The ADA defines abnormalities in albumin excretion as follows: ?? Albuminuria Category ?Result (mcg/mg creatinine) ?? Normal to Mildly increased ?? <30 Moderately increased ? 30-299 ?? Severely increased ? > OR = 300 ?? The ADA recommends that at least two of three specimens collected within a 3-6 month period be abnormal before considering a patient to be within a diagnostic category. Creatinine, Urine 50 20 - 275 mg/dL [facility] 06/21/2021 8:30 AM EDT us Crystal Rosario MD LAB URINE ORDERABLES Final Re sult Performing Organization Address City/[facility]/ZIP Co de Phone Number [facility] [address] from Last 3 Months or Most Recently Relevant to Health Maintenance Insurance [facility] Care Teams [employer] Miner Relationship Specialty Start Date End Date Crystal Rosario MD [address] [place] [phone] PCP - General Family Medicine 02/21/20
--- OUTSIDE RECORDS SUMMARY | 2024-05-09 11:11 | XMS_ITS | Encounter Summary ---
Author Organization [employer] Address [address] [place] [address] Care Team Providers Care Clinical Athletic Instructor Name Role Phone Crystal Rosario MD Primary Care Provider [phone] Reason for Visit * Reason Onset Date Comments Appointment Request 01/17/2023 Encounter Details Date Type Department Care Team ([facility] Contact Info) Description 01/17/2023 Telephone [facility] [address] [place] [address] Crystal Rosario MD [address] [place] [address] Appointment Request Social History Tobacco Use Types Packs/Day Years [...] * Telephone Encounter - Graciela Hodges - 01/17/2023 11:49 AM EST Tc from daughter requesting to r/s Physical on 03/02/2023 @ 2:00 pm due to not being able to make it Please contact Daughter @ [phone] documented in this encounter Plan of Treatment Not on file documented as of this encounter Visit Diagnoses Not on filedocumented in this encounter Care Teams Clinical Athletic Instructor Relationship Specialty Start Date End Date Crystal Rosario MD [address] [place] [address] PCP - General Family Medicine 02/21/20 documented as of this encounter
== END 2024-05-09 10:18 | disposition home or self-care (01) ==
LOC: HO.XRAY 10:17
PROVIDERS: PCP Internal Medicine; Visit Provider Internal Medicine
DX: M25.512 Pain in left shoulder (principal); M25.522 Pain in left elbow; M25.532 Pain in left wrist
CPT/HCPCS: 73030; 73080; 73110

== ENCOUNTER → 2024-05-09 10:21 | Outpatient (BNV) | payer OTHER, SELFPAY | PROVIDERS: PCP Internal Medicine; Visit Provider Specialist | DX: S42.92XA Fracture of left shoulder girdle, part unspecified, initial encounter for closed fracture (principal); W19.XXXA Unspecified fall, initial encounter; M25.522 Pain in left elbow; M25.532 Pain in left wrist | CPT/HCPCS: 73030; 73080; 73110 ==

== ENCOUNTER 2024-06-29 10:53 | Outpatient (REF) | payer OTHER, SELFPAY | END 2024-06-29 10:54 | disposition home or self-care (01) | LOC: HO.MRI 10:53 | PROVIDERS: PCP Family Medicine; Visit Provider Pediatrics | DX: S46.912D Strain of unspecified muscle, fascia and tendon at shoulder and upper arm level, left arm, subsequent encounter (principal) | CPT/HCPCS: 73221 ==

== ENCOUNTER → 2024-06-29 11:02 | Outpatient (BNV) | payer OTHER, SELFPAY | PROVIDERS: PCP Family Medicine; Visit Provider Radiology Diagnostic Radiology | DX: S42.292A Other displaced fracture of upper end of left humerus, initial encounter for closed fracture (principal); S42.295A Other nondisplaced fracture of upper end of left humerus, initial encounter for closed fracture; M19.012 Primary osteoarthritis, left shoulder; W18.30XA Fall on same level, unspecified, initial encounter | CPT/HCPCS: 73221 ==

== ENCOUNTER 2024-08-12 10:44 | Outpatient (AMB) | payer OTHER, SELFPAY ==
--- OUTSIDE RECORDS SUMMARY | 2024-08-12 11:39 | XMS_ITS | Encounter Summary ---
Author Organization [email or web address] Address [address] [place] [address] 7 [place] [address] Care Team Providers Care Pharmaceutical Laboratory Technician Name Role Phone Crystal Rosario MD Primary Care Provider [phone] Encounter Details Date Type Department Care Team (Late Contact Info) Description 01/14/2022 Orders Only [facility] [address] [place], [place] [phone] Crystal Rosario MD [address] [place], [place] [phone] Esophageal dysmotility (Primary Dx); Osteopenia, unspecified location [...] as of this encounter Plan of Treatment Upcoming Encounters Date Type Department Care Team (Late st Contact Info) Description 09/04/2024 2:00 PM EDT Office Visit [facility] [address] [place], [place] [phone] Crystal Rosario MD [address] [place], [place] [phone] documented as of this encounter Visit Diagnoses Diagnosis Esophageal dysmotility- Primary Dyskinesia of esophagus Osteopenia, unspecified location documented in this encounter Care Teams Pharmaceutical Laboratory Technician Relationship Specialty Start Date End Date Crystal Rosario MD [address] [place] [address] PCP - General Family Medicine 02/21/20 documented as of this encounter
--- OUTSIDE RECORDS SUMMARY | 2024-08-12 11:39 | XMS_ITS | Data Portability ---
Author Organization [facility], [facility] Address [address] [place] [address] Care Team Providers Care Drawing Kiln Operator Name Role Phone [facility] Referring Provider [facility] Referring Provider [phone] Assessment Encounter Date Assessment Date Assessment LastModified by Organization Details LastModified Time 05/01/2023 05/01/2023 As noted, we renee omtley called to see this patient regarding concerns of possible UTI Hx obtained with assistance of daughter 72 yo dutch speaking F with h/o dementia and at baseline she urinates frequently with 4 days of increased confusion and more frequent urination. No n/v. No fevers. No report of abd pain. Patient is eating/drinking and walking around. PMH notable for vascular dementia, paranoid schizophrenia, anxiety, DM, htn Evaluation in the field was performed by my hemstitcher colleague, as noted above, I provided real-time [...] assessment and plan as documented by the hemstitcher. I provided real-time medical direction for this [...] Assessment and Plan as documented by the Certified Medical Technician Assistant. Patient given the opportunity to ask questions. [...] for her. P.o. intake is normal. Per hemstitcher on the scene, vital signs are stable [...] particularly fever chills lightheadedness altered mental status [email or web address] Not available 04/06/2024 19:16:02 Plan of Treatment Reminders Order Date Submit Date Provider Last Modified By Organization Details Last Modified Time Details Appointments None recorded. Lab urinalysis, dipstick [address], [phone] 4 12:18:16 urinalysis, dipstick [address], [address] 4 12:38:08 culture, urine 2023 [place] [facility] (Centralized Electronic Ordering - All Locations), Patient Can Go To The Location Of Their Choice, [address] 14:06:46 Referral None recorded. Procedures None recorded. Surgeries None recorded. Imaging None recorded. Medication Orders erythromyci n 5 mg/gram (0.5 %) eye ointment 2023 [facility] #[id number], [address] [place] [address], [id number], 17:28:23 cefpodoxime 100 mg tablet 2023 [facility][id number], [address] [place] [address], [id number], 12:45:54 Patient TargetsNo targets recorded. Patient InstructionsNo instructions recorded. Reason for Referral None Reported. Results Created Date Observation Date Name Description Value Unit Range Abnormal Flag Note LastModifiedBy Organization Detail LastModifiedTime 05/01/19 24 05/02/2023 URINE CULTU RE,CO MPREH ENSIV E urine culture,comp rehensive TNP Test not perfo rmed. No urine speci men was recei kaleb for cultu re. Test not perfo rmed. Red/y ellow speck led urine tube is for Urina lysis only; not suita ble for urine cultu re or other urine testi ng. Not Available [facility] ([facility]) [address] [facility], [place], [address], 05/02/2023 14:06:46 05/01/19 24 05/02/[address] PROBL EM request problem TNP Test not perfo rmed. No urine speci men was recei kaleb for cultu re. Test not perfo rmed. Red/y ellow speck led urine tube is for Urina lysis only; not suita ble for urine cultu re or other urine testi ng. TEST: [id number] Urine Cultu re,Co mpreh ensiv e Not Available [facility] ([facility]) [address] [place], [address], 05/02/2023 14:06:47 05/01/19 24 05/01/2023 urina lysis , dipst ick Leukocytes positi ve Not Available [facility] - [facility] [address] [place] [address], [phone] 05/01/2023 12:36:47 05/01/19 24 05/01/2023 urina lysis , dipst ick Nitrite negati ve Not Available Main - [facility] ed [address] [place] [address], [phone] 05/01/2023 12:36:47 05/01/19 24 05/01/2023 urina lysis , dipst ick Protein positi ve Not Available Main - [facility] [address] [place] [address], [phone] 05/01/2023 12:36:47 05/01/19 24 05/01/2023 urina lysis , dipst ick Blood negati ve Not Available Main - [facility] [address] [place] [address], [phone] 05/01/2023 12:36:47 05/01/19 24 05/01/2023 urina lysis , dipst ick Ketone negati ve Not Available Main - [facility] [address] [place] [address], [phone] 05/01/2023 12:36:47 05/01/19 24 05/01/2023 urina lysis , dipst ick Glucose negati ve Not Available Main - [facility] [address] [place] [address], [phone] 05/01/2023 12:36:47 05/01/19 24 05/01/2023 urina lysis , dipst ick Appearance clear Not Available Main - [facility] [address] [place] [address], [phone] 05/01/2023 12:36:47 05/01/19 24 05/01/2023 urina lysis , dipst ick Color yellow Not Available Main - [facility] [address] [place] [address], [phone] 05/01/2023 12:36:47 Result Notes None recorded. Medical Equipment None Reported. Allergies Allergen ID Allergen Name Allergen Category Reaction Reaction Severity Criticality Documentation Date Start Date Code Code System Note Provider Name and Address Organization Details Recorded Time 42407 codeine medicatio n Not available Not available Not available 04/06/2024 2670 RxNorm Not Available [facility] 5 08:24:50 51109 metformin medicatio n Not available Not available Not available 04/06/2024 6809 RxNorm Not Available [facility] 5 08:24:50 70222 hydrochlo rothiazid e medicatio n Not available Not available Not available 04/06/2024 5487 RxNorm Not Available [facility] 08:24:50 Medications Name Sig [...] Available No t Available Vitals Date Recorded Oxygen saturation Oxygen saturation in Arterial blood by Pulse oximetry Body temperature Respiratory rate Heart rate Systolic And Diastolic Provider Name and Address Organization Details Last Updated DateTime 5 94 % 94 % 99.3 [degF] 14 /min 94 /min 105/66 mm[Hg] Not Available [employer] 5 14:12:14 Date Recorded Heart rate Body height Oxygen saturation Oxygen saturation in Arterial blood by Pulse oximetry Body weight Body temperature Respiratory rate Systolic And Diastolic Provider Name and Address Organization Details Last Updated DateTime 4 80 /min 147.32 cm 97 % 97 % 71839.0 4 g 97.2 [degF] 14 /min 131/77 mm[Hg] Not Available [employer] 4 12:30:22 Date Recorded Oxygen saturation Oxygen saturation in Arterial blood by Pulse oximetry Heart rate Respiratory rate Body temperature Systolic And Diastolic Provider Name and Address Organization Details Last Updated DateTime 4 97 % 97 % 69 /min 16 /min 97.8 [degF] 110/64 mm[Hg] Not Available [employer] 4 17:12:00 Date Recorded Heart rate Body height Oxygen saturation Oxygen saturation in Arterial blood by Pulse oximetry Body weight Body temperature Respiratory rate Systolic And Diastolic Provider Name and Address Organization Details Last Updated DateTime 3 73 /min 149.86 cm 98 % 98 % 72360 g 98 [degF] 18 /min 102/66 mm[Hg] Not Available [employer] 3 16:02:23 Date Recorded Respiratory rate Heart rate Body weight Body temperature Oxygen saturation Oxygen saturation in Arterial blood by Pulse oximetry Systolic And Diastolic Provider Name and Address Organization Details Last Updated DateTime 4 16 /min 88 /min 96843.0 4 g 98.3 [degF] 99 % 99 % 142/74 mm[Hg] Not Available [employer] 4 10:01:21 Social History None recorded. Functional Status None recorded. Mental Status None recorded. Family History Nothing Reported. Medical History No medical history recorded. Gynecological HistoryNo gynecological history recorded. Obstetrics History GPAL:G 0 P 0 0 0 0 Past Encounters Encounter ID Performer Location Encounter Start Date Encounter Closed Date Diagnosis/Indication Diagnosis SNOMED-CT Code Diagnosis ICD10 Code Diagnosis Note [id number] Shantanu Block MD Main - [facility] [address] [place] [phone] 09/13/2022 16:02:21 09/13/2022 23:19:40 Essential hypertension 10013746 I10 The patient went to the ER several days ago with an elevated BP, but she left without being seen. Today's visit was to check her vital signs and to see how she is doing. The patient has no complaints , and her BP is good. She will follow-up with her PCP. The patient agreed with this plan. [id number] TAO LEAL MD Main - [facility] [address] [place] [phone] 05/01/2023 12:30:16 05/01/2023 18:49:44 Urinary symptoms 397266876 R39.9 [id number] Josette Ham MD Main - [facility] [address] [place] [phone] 07/05/2023 17:11:52 07/06/2023 10:29:57 Corneal abrasion 84070121 S05.00XA [id number] Shantanu Block MD Main - [facility] [address] [place] [phone] 11/02/2023 10:01:18 11/02/2023 14:43:46 Hypoglycemia 638305176 E16.2 This 73-year-ol d female with type [...] The patient's family agreed with this plan. [id number] Lala Clarke MD Main - [facility] [address] [place] [phone] 04/06/2024 14:12:06 04/16/2024 12:22:48 Fall W19.XXXA Health Concerns Section Related Observation LastModified by Organization Detai ls LastModified Time None Recorded Concern Status LastModified by Organization Details LastModified Time None Recorded Advance Directives Directive None Recorded Payers Insurance Date Sequence Insurance Name Policy Number Policy Hinkle Covered Member ID Hinkle Member ID Guarantor Name 04/16/[address] [facility] - DOS ON OR AFTER 2022 - DUAL ELIGIBLE - DETENTION OPTIONS AND ONE CARE (MEDICARE REPLACEMENT/ADV ANTAGE - HMO) Safia Barcenas [id number] Safia Barcenas Notes Date Note Type Note [...] to process this visit. Shantanu Block MD [address] [place] [address],[address] [facility], [place], [phone] [employer] 09/13/2022 16:05:49 05/01/2023 text/html HPI: Members daughter [...] ...................... ...................... ...................... ...................... ...................... ...................... ......... Certified Medical Technician Assistant Note From Esvin Neely: Pt s daughter reports 4 days of increased confusion (dementia at baseline) and increased urinary frequency (25-30 times per day). Daughter reports hx of UTI s and sts this is the pt s classic presentation. Daughter denies CP, SOB, HURTADO, hematuria, dark urine, flank pain, ABD pain, f/n/v/d. Pt is alert to person and place, NAD. VSS. Afebrile. Non focal neuro exam. Normal gait. Lungs CTA. Benign ABD exam. No CVA tenderness. No LE edema. UA: +ABHINAV, -NIT, +PRO; pale yellow, clear. UC sent to [facility]. [facility] contacted and pt treated with cephalexin 500 mg PO. Pt/daughter instructed to stay well hydrated, f/u with PCP and to seek emergent medical care for new or worsening sx, which are reviewed with them. [facility] Lab Orders: urinalysis, dipstick: Performed culture, urine: Performed ...................... ...................... ...................... ...................... ...................... ...................... ......... Disposition: Fulfilled TAO LEAL MD [address] [place] [address],[address] [facility], [place], [address], [employer] 05/01/2023 13:01:34 07/05/2023 text/html HPI: Hx: Chronic Hep C, ALICE, Neuropathy.Patient with red slightly painful left eye. No known FB. No fever or URI symptoms. ...................... ...................... ...................... ...................... ...................... ...................... ......... CRC Nurse Triage Notes (Jana Carroll): Comments: HPI reviewed. No further information needed to process visit. ...................... ...................... ...................... ...................... ...................... ...................... ......... Certified Medical Technician Assistant Note From Kin Washington: Dispatched to the [...] to lateral side of left eye noted. [facility] consulted. Script called into preferred pharmacy. Red flags discussed. ALL times are approx. ...................... ...................... ...................... ...................... ...................... ...................... ......... Disposition: Fulfilled Josette Ham MD [address] [facility],[address], [place], [address], [employer] 07/05/2023 18:53:49 11/02/2023 text/html HPI: Bette is a 73 yo female with hx of Vascular dementia, paranoid schizophrenia, anxiety, Bipolar, Type 2 DM, HLD, dysphagia, joint pain and osteopenia. Allergies to Duglas Inhibitors, Codeine, HCTZ, and Metformin. Bette's daughter Agata calling into the CRU asking that [facility] come out to see her Mother. Call originated from [phone]. Dgtr stating that around 730 p yesterday Mbr passed out for about 5 minutes sitting in her chair. Dgtr stated she had a hard time waking her up for about 5 minutes and then she woke up. Per dgtr BP yesterday was 192/10o at 723 p and 170/102 at 740 p. Caller stated that Mbr had a similar episode in August and they took her to the ER and they found her to have a UTI. Dgtr denies any fever, sob or chest pain or any other s/s. Per dgtr mbr is back to her baseline. Dtr reports Mbr is alert and happy this morning. FBS 99 this morning. Confirmed address and phone/[phone]. Instructed dgtr to call 911 and take [...] CRC RN DID NOT NEED FURTHER INFO Certified Medical Technician Assistant Organization Information for [facility] Elvia Nicanormichele Legal Name: [facility] Transportation Address: [address] [place] [address], [place] [address], Video Arcade Manager: Maycol Easton MD CLIA No.: [id number] Certified Medical Technician Assistant POC Test Results from [facility] El[facility] CANCINO Urine Dipstick (09:58:17) Urine leukocytes: NR Urine nitrites: NR Urine urobilinogen: 0.2(3.5) URO Urine protein: 30(0.3) PRO Urine pH: 5 pH Urine blood: NR Urine specific gravity: 1.000 SG Urine ketones: NR Urine bilirubin: NR Urine glucose: NR Shantanu Block MD [address] [place] [address],[address], [place], [address], [employer] 11/02/2023 10:13:49 04/06/2024 text/html HPI: Member's daughter [...] Dementia (e.g., Alzheimer's Disease) PMH Reviewed at 04/06/2024:24 Allergies Reviewed at 04/06/2024 08:24 Comments: Reviewed HPI ...................... ...................... ...................... ...................... ...................... ...................... ......... Certified Medical Technician Assistant Note From Esvin Neely: This visit is [...] with this. In this case, the patient s daughter and I felt this to [...] ...................... ...................... ...................... ...................... ...................... ...................... ......... [facility] Consulted: Lala Clarke ...................... ...................... ...................... ...................... ...................... ...................... ......... Disposition: Fulfilled Lala Clarke MD [address] [facility],[address], [place], [address], [employer] 04/06/2024 19:16:12 OBGyn Episode No OBEpisode recorded.
--- OUTSIDE RECORDS SUMMARY | 2024-08-12 11:40 | XMS_ITS | Patient Health Record ---
Author Organization [employer] Address [address] [place] [address] Care Team Providers Care Safety Deposit Boxes Custodian Name Role Phone Nikky Hodges Primary Care Provider UnavailMaster Amaya [phone] Reason For Referral No Information Plan Of Treatment No Information Insurance Providers Payer Name Payer Address Payer Phone Subscriber Number Group Number Insured Name Patient Relationship to Insured Coverage Start Date Coverage End Date [facility] [address] [address] [place] [address] [phone] [id number] MAGDALENA LAO Self - patient is the insured
--- OUTSIDE RECORDS SUMMARY | 2024-08-12 11:40 | XMS_ITS | Clinical Summary ---
Author Organization [facility] it Address [address] [place] [address] Care Team Providers Care Supervisor Blood Donor Recruiters Name Role Phone Renetta Wan MD Primary Care Provider [phone] Immunizations Name Administration Dates Next Due Moderna SARS-CoV-2 COVID-19, mRNA, LNP-S, preservative free 06/28/2021,04/01/2020 Medical History Medical History Date Comments Hypertension 05/05/2011 DX:Hypertension Historical Medical DX 05/05/2011 DX:Hyperli pidemia LDL goal < 130 Obesity, unspecified 05/05/2011 DX:Obesity, unspecified Hepatitis C 05/05/2011 DX:Hepatitis C Breast cancer (CMS/HCC V24, CMS/HCC V28) 05/05/19 12 DX:Breast cancer (HCC) Arthritis 05/05/2011 DX:Arthritis Esophageal [...] Health Maintenance Due Date Last Done Comments Diabetes: Annual GFR (Glomerular Filtration Rate) 1948 Diabetes: Annual Foot Exam 1958 Diabetes: Annual Retina Eye Exam 1958 Colorectal Cancer Screening: Colonoscopy 01/05/2022 Depression Screening 01/05/2022 Falls Risk Assessment 01/05/2022 Hepatitis C Screening 01/05/2022 Osteoporosis Screening (Bone Density Screening) 01/05/2022 Social Influencers of Health Screening 01/05/2022 Hypertension/CHF/CAD Annual BMP Blood Test 08/31/2023 RSV Immunization Adult Patients (1 - 1-dose 75+ series) 09/26/2023 COVID-19 Vaccine ( - season) 2023 05/01/2023, 06/28/2021, 04/29/2020, Additional history exists Hepatitis A Vaccines (2 of 2 - Risk 2-dose series) 11/01/2023 05/01/2023 Diabetes: Annual Urine Albumin-Creatinine Ratio (uACR) 05/29/2024 Influenza Vaccine (#1) 2024 , 11/19/2022, 11/30/2020, Additional history exists Diabetes: Blood Sugar Control Test (HGBA1C) 11/02/2024 05/02/2024 DTaP,Tdap,and Td Vaccines (2 - Td or Tdap) 01/07/2026 01/08/2016 Cholesterol Screening (Lipid Panel) 08/20/2027 08/19/2022 Hepatitis B Vaccines Completed 11/27/2017, 03/10/2017, 10/14/2015 Pneumococcal Vaccine: 50+ Years Completed 05/26/2018, 11/04/2016, 10/14/2015, Additional history exists Zoster Vaccines Completed 09/12/2019, 01/06, 01/08/2016 HIB Vaccines Aged Out No longer eligi [...] age to complete this topic Meningococcal B Vaccine Aged Out No l onger eligible based on patient's age to complete this topic RSV Immunization Patients Under 20 months Aged Out No longer eligible based on patient's age to complete this topic Varicella Vaccines Aged Out No longer eligible based on patient's age to complete this topic Care Teams Supervisor Blood Donor Recruiters Relationship Specialty Start Date End Date Renetta Wan MD [address] [place] [address] PCP - General 07/04/23
--- NOTE | 2024-08-12 11:42 | A.OFFVIS_ITS ---
Intake Visit Reasons: 2 month f/u Allergies codeine (Codeine) Allergy (Mild, Verified 11/23/23 14:59) UPSET STOMACH, visual impairment DEQUAN Inhibitors (DEQUAN INHIBITORS) Adverse Reaction (Intermediate, Verified 11/23/23 14:59) COUGH hydrochlorothiazide (HYDROCHLOROTHIAZIDE) Adverse Reaction (Intermediate, Verified 11/23/23 14:59) HYPONATREMIA Medication List - Last Reconciled 08/12/24 by Estuardo Arzola MD amlodipine 1 tab PO QPM aspirin 81 mg PO DAILY atorvastatin 40 mg PO BEDTIME calcium carbonate (Oyster Shell Calcium 500) 1 tab PO BID cephalexin 500 mg PO QID 7 days cholecalciferol (vitamin D3) 25 mcg PO DAILY@1800 clonazepam 1 mg PO BID cyanocobalamin (vitamin B-12) 1 tab PO QAM gabapentin 300 mg PO TID levetiracetam (Keppra) 500 mg PO BID losartan 1 tab PO QAM memantine 5 mg PO metoprolol tartrate 25 mg PO BID mirtazapine 15 mg PO BEDTIME olanzapine 5 mg PO BID omeprazole 20 mg PO QAM ondansetron HCl 4 mg PO Q8H PRN 5 days oxycodone 5 mg PO Q6H PRN HPI Comments Details: 73 years old woman with diagnosis of bipolar disorder, generalized seizure disorder and dementia with behavioral symptoms. Addition of gabapentin has helped and she was less anxious and relatively easier to manage by her daughter. She still required 247 care. [facility] Medical History (Updated 08/12/24 @ 11:44 by Estuardo Arzola MD) Hyponatremia Osteoarthritis Asthma Seizure disorder Alzheimer disease Dysphagia Obesity Paranoia Anxiety Tardive dyskinesia Dementia with behavioral disturbance Cerebral microvascular disease Tinnitus Dementia Sleep apnea care home (current) use of insulin Diabetes type 2, uncontrolled Vitamin D deficiency HLD (hyperlipidemia) HTN (hypertension) T2DM (type 2 diabetes mellitus) Invasive ductal carcinoma of breast Bipolar disorder Rheumatoid arthritis Barretts esophagus Hepatitis C Hypertension Surgical History History of esophagogastroduodenoscopy (EGD) H/O colonoscopy History of pubovaginal sling Hx of excision of mass H/O ventral hernia repair (01/17/22) Status post left breast lumpectomy History of cholecystectomy H/O parotidectomy Status post right breast lumpectomy Family History Daughter No problems noted. Father No problems noted. Mother No problems noted. Social History Alcohol intake: never Patient Tobacco Use Status: Never used Tobacco Second Hand Smoke Exposure: No Advance Directives Date on File: 09/18/20 Current occupational status: unemployed Current occupation: right handed Physical Exam Neuro Other: She was alert and awake with normal spontaneity of speech fluency comprehension and anxious affect. She was in a wheelchair. She was having mild dyskinetic movements of chin. Assessment & Plan Assessment & Plan (1) Seizure disorder: Code(s): G40.909 - Epilepsy, unspecified, not intractable, without status epilepticus Category: Medical Plan With combination of clonazepam 1 mg 3 times a day, gabapentin 300 mg 3 times a day, and levetiracetam 500 mg twice a day she was relatively stable. She was not getting olanzapine anymore. Mild dyskinesia was there but I would not recommend any medicine for that as it would result in more problems. Medications: New gabapentin 300 mg PO TID 270 caps 0RF clonazepam 1 mg PO BID 180 tabs 1RF Changed From levetiracetam (Keppra) 500 mg PO BID 60 tabs 0RF To levetiracetam (Keppra) 500 mg PO BID 180 tabs 1RF 90 days Coding Level of Care Code Est Pt Level 4 (29291) Diagnoses Seizure disorder G40.909
== END 2024-08-12 11:55 | disposition home or self-care (01) ==
LOC: HO.HSM 10:45
PROVIDERS: PCP Family Medicine; Visit Provider Psychiatry & Neurology Neurology
DX: G40.909 Epilepsy, unspecified, not intractable, without status epilepticus (principal)
CPT/HCPCS: 99214

== ENCOUNTER → 2024-08-12 10:44 | Outpatient (BNVA) | payer OTHER, SELFPAY | PROVIDERS: PCP Family Medicine; Visit Provider Psychiatry & Neurology Neurology | DX: G40.909 Epilepsy, unspecified, not intractable, without status epilepticus (principal) | CPT/HCPCS: 99212 ==

== ENCOUNTER 2024-08-16 12:56 | Outpatient (REF) | payer OTHER, SELFPAY ==
--- OUTSIDE RECORDS SUMMARY | 2024-08-16 12:59 | XMS_ITS | Data Portability ---
Author Organization [facility], Or [facility] Address [address] [place] [address] Care Team Providers Care Head Tennis Professional Name Role Phone [facility] Referring Provider [facility] Referring Provider [phone] Assessment Encounter Date Assessment Date Assessment LastModified by Organization Details LastModified Time 05/01/2023 05/01/2023 As noted, we renee motley called to see this patient regarding concerns of possible UTI Hx obtained with assistance of daughter 72 yo chinese speaking F with h/o dementia and at baseline she urinates frequently with 4 days of increased confusion and more frequent urination. No n/v. No fevers. No report of abd pain. Patient is eating/drinking and walking around. PMH notable for vascular dementia, paranoid schizophrenia, anxiety, DM, htn Evaluation in the field was performed by my sergeant at arms colleague, as noted above, I provided real-time [...] assessment and plan as documented by the sergeant at arms. I provided real-time medical direction for this [...] Assessment and Plan as documented by the Credit Operations Specialist. Patient given the opportunity to ask questions. [...] for her. P.o. intake is normal. Per sergeant at arms on the scene, vital signs are stable [...] Appointments None recorded. Lab urinalysis, dipstick [address], [address] 4 12:18:16 urinalysis, dipstick [address], [address] 4 12:38:08 culture, urine 2023 [place] [facility] (Centralized Electronic Ordering - All Locations), Patient Can Go To The Location Of Their Choice, [address] 14:06:46 Referral None recorded. Procedures None recorded. Surgeries None recorded. Imaging None recorded. Medication Orders erythromyci n 5 mg/gram (0.5 %) eye ointment 2023 [facility] #[id number], [address] [place] [address], [id number], 17:28:23 cefpodoxime 100 mg tablet 2023 [id number], [address] [place] [address], [id number], 12:45:54 Patient TargetsNo targets recorded. Patient InstructionsNo [...] other urine testi ng. Not Available [facility] ([facility]) [address] [facility], [place], [address], 05/02/2023 14:06:46 05/01/19 24 05/02/[address] PROBL EM request problem TNP Test not perfo rmed. No urine speci men was recei kaleb for cultu re. Test not perfo rmed. Red/y ellow speck led urine tube is for Urina lysis only; not suita ble for urine cultu re or other urine testi ng. TEST: [id number] 6 Urine Cultu re,Co mpreh ensiv e Not Available [facility] ([facility]) [address] [place], [address], 05/02/2023 14:06:47 05/01/19 24 05/01/2023 urina lysis , dipst ick Leukocytes positi ve Not Available Main - [facility] [address] [place] [address], [id number] 05/01/2023 12:36:47 05/01/19 24 05/01/2023 urina lysis , dipst ick Nitrite negati ve Not Available Main - [facility] ed [address] [place] [address], [id number] 05/01/2023 12:36:47 05/01/19 24 05/01/2023 urina lysis , dipst ick Protein positi ve Not Available Main - [facility] [address] [place] [address], [phone] 05/01/2023 12:36:47 05/01/19 24 05/01/2023 urina lysis , dipst ick Blood negati ve Not Available Main - [facility] [address] [place] [address], [id number] 05/01/2023 12:36:47 05/01/19 24 05/01/2023 urina lysis , dipst ick Ketone negati ve Not Available Main - [facility] [address] [place] [address], [phone] 05/01/2023 12:36:47 05/01/19 24 05/01/2023 urina lysis , dipst ick Glucose negati ve Not Available Main - [facility] [address] [place] [address], [phone] 05/01/2023 12:36:47 05/01/19 24 05/01/2023 urina lysis , dipst ick Appearance clear Not Available Main - [facility] [address] [place] [address], [phone] 05/01/2023 12:36:47 05/01/19 24 05/01/2023 urina lysis , dipst ick Color yellow Not Available Main - [facility] [address] [place] [address], [id number] 05/01/2023 12:36:47 Result Notes None recorded. Medical Equipment None Reported. Allergies Allergen ID Allergen Name Allergen Category Reaction Reaction Severity Criticality Documentation Date Start Date Code Code System Note Provider Name and Address Organization Details Recorded Time 08788 codeine medicatio n Not available Not available Not available 04/06/2024 2670 Rx[facility] Available [facility] 08:24:50 05984 metformin medicatio n Not available Not available Not available 04/06/2024 6809 RxNorm Not Available [facility] 5 08:24:50 40417 hydrochlo rothiazid e medicatio n Not available Not available Not available 04/06/2024 5487 [facility] 08:24:50 Medications Name Sig [...] /min 94 /min 105/66 mm[Hg] Not Available [facility] 5 14:12:14 Date Recorded Heart rate Body height Oxygen saturation Oxygen saturation in Arterial blood by Pulse oximetry Body weight Body temperature Respiratory rate Systolic And Diastolic Provider Name and Address Organization Details Last Updated DateTime 4 80 /min 147.32 cm 97 % 97 % 83001.0 4 g 97.2 [degF] 14 /min 131/77 mm[Hg] Not Available [facility] 4 12:30:22 Date Recorded Oxygen saturation Oxygen saturation in Arterial blood by Pulse oximetry Heart rate Respiratory rate Body temperature Systolic And Diastolic Provider Name and Address Organization Details Last Updated DateTime 4 97 % 97 % 69 /min 16 /min 97.8 [degF] 110/64 mm[Hg] Not Available [facility] 4 17:12:00 Date Recorded Heart rate Body height Oxygen saturation Oxygen saturation in Arterial blood by Pulse oximetry Body weight Body temperature Respiratory rate Systolic And Diastolic Provider Name and Address Organization Details Last Updated DateTime 3 73 /min 149.86 cm 98 % 98 % 69662 g 98 [degF] 18 /min 102/66 mm[Hg] Not Available [facility] 3 16:02:23 Date Recorded Respiratory rate Heart rate Body weight Body temperature Oxygen saturation Oxygen saturation in Arterial blood by Pulse oximetry Systolic And Diastolic Provider Name and Address Organization Details Last Updated DateTime 4 16 /min 88 /min 20605.0 4 g 98.3 [degF] 99 % 99 % 142/74 mm[Hg] Not Available [facility] 4 10:01:21 Social History None recorded. Functional Status None recorded. Mental Status None recorded. Family History Nothing Reported. Medical History No medical history recorded. Gynecological HistoryNo gynecological history recorded. Obstetrics History GPAL:G 0 P 0 0 0 0 Past Encounters Encounter ID Performer Location Encounter Start Date Encounter Closed Date Diagnosis/Indication Diagnosis SNOMED-CT Code Diagnosis ICD10 Code Diagnosis Note [id number] Shantanu Block MD Main - [facility] [address] [place] [phone] 09/13/2022 16:02:21 09/13/2022 23:19:40 Essential hypertension [id number] I10 The patient went to the ER several days ago with an elevated BP, but she left without being seen. Today's visit was to check her vital signs and to see how she is doing. The patient has no complaints , and her BP is good. She will follow-up with her PCP. The patient agreed with this plan. [id number] TAO LEAL MD Main - [facility] [address] [place] [phone] 05/01/2023 12:30:16 05/01/2023 18:49:44 Urinary symptoms 855018753 R39.9 [id number] Josette Ham MD Main - [facility] [address] [place] [phone] 07/05/2023 17:11:52 07/06/2023 10:29:57 Corneal abrasion 71605671 S05.00XA [id number] Sahntanu Block MD Main - [facility] [address] [place] [phone] 11/02/2023 10:01:18 11/02/2023 14:43:46 Hypoglycemia 208576901 E16.2 This 73-year-ol d female with type [...] The patient's family agreed with this plan. [id number] Lala Clarke MD Main - [facility] [address] [place] [phone] 04/06/2024 14:12:06 04/16/2024 12:22:48 Fall W19.XXXA Health Concerns Section Related Observation LastModified by Organization Detai ls LastModified Time None Recorded Concern Status LastModified by Organization Details LastModified Time None Recorded Advance Directives Directive None Recorded Payers Insurance Date Sequence Insurance Name Policy Number Policy Hinkle Covered Member ID Hinkle Member ID Guarantor Name 04/16/2024 1 [facility] - DOS ON OR AFTER 2022 - DUAL ELIGIBLE - [employer] OPTIONS AND ONE C[employer] (MEDICARE REPLACEMENT/ADV ANTAGE - HMO) Safia Barcenas [id number] Safia Barcenas Notes Date Note Type Note [...] to process this visit. Shantanu Block MD [address] [place] [address],[address] [facility], [place], [address] [employer] 09/13/2022 16:05:49 05/01/2023 text/html HPI: Members daughter [...] ...................... ...................... ...................... ...................... ...................... ...................... ......... Credit Operations Specialist Note From Esvin Neely: Pt s daughter [...] pale yellow, clear. UC sent to [facility]. [facility] contacted and pt treated with cephalexin 500 mg PO. Pt/daughter instructed to stay well hydrated, f/u with PCP and to seek emergent medical care for new or worsening sx, which are reviewed with them. [facility] Lab Orders: urinalysis, dipstick: Performed culture, urine: Performed ...................... ...................... ...................... ...................... ...................... ...................... ......... Disposition: Fulfilled TAO LEAL MD [address] [place] [address],[address] [facility], [place], [address], [employer] 05/01/2023 13:01:34 07/05/2023 text/html HPI: Hx: Chronic Hep C, ALICE, Neuropathy.Patient with red slightly painful left eye. No known FB. No fever or URI symptoms. ...................... ...................... ...................... ...................... ...................... ...................... ......... CRC Nurse Triage Notes (Jana Carroll): Comments: HPI reviewed. No further information needed to process visit. ...................... ...................... ...................... ...................... ...................... ...................... ......... Credit Operations Specialist Note From Kin Washington: Dispatched to the [...] ......... Disposition: Fulfilled Josette Ham MD [address] [facility],[address], [place], [address], [employer] 07/05/2023 18:53:49 11/02/2023 text/html HPI: Bette is a 73 yo female with hx of Vascular dementia, paranoid schizophrenia, anxiety, Bipolar, Type 2 DM, HLD, dysphagia, joint pain and osteopenia. Allergies to Duglas Inhibitors, Codeine, HCTZ, and Metformin. Bette's daughter Agata calling into the CRU asking that INSTED come out to see her Mother. Call originated from [phone]. Dgtr stating that around 730 p yesterday [...] FBS 99 this morning. Confirmed address and phone/[phone]. Instructed dgtr to call 911 and take [...] CRC RN DID NOT NEED FURTHER INFO Credit Operations Specialist Organization Information for Chance Cha Elvia Nicanormichele Legal Name: [facility] Transportation Address: [address] [place] [address], [place] [address], Spot Welder Line: Maycol Easton MD CLIA No.: [id number] Credit Operations Specialist POC Test Results from Chance Cha Elvia CANCINO Urine Dipstick (09:58:17) Urine leukocytes: NR Urine nitrites: NR Urine urobilinogen: 0.2(3.5) URO Urine protein: 30(0.3) PRO Urine pH: 5 pH Urine blood: NR Urine specific gravity: 1.000 SG Urine ketones: NR Urine bilirubin: NR Urine glucose: NR Shantanu Block MD [address] [place] [address],[address], [place], [address], [employer] 11/02/2023 10:13:49 04/06/2024 text/html HPI: Member's daughter [...] ...................... ...................... ...................... ...................... ...................... ...................... ......... Credit Operations Specialist Note From Esvin Neely: This visit is [...] ...................... ...................... ...................... ...................... ...................... ...................... ......... [facility] Consulted: Lala Clarke ...................... ...................... ...................... ...................... ...................... ...................... ......... Disposition: Fulfilled Llaa Clarke MD [address] [facility],[address], [place], [address], [employer] 04/06/2024 19:16:12 OBGyn Episode No OBEpisode recorded.
--- OUTSIDE RECORDS SUMMARY | 2024-08-16 12:59 | XMS_ITS | Encounter Summary ---
Author Organization [employer] Address [address] [place] [address] [address] [place] [address] Care Team Providers Care Pharmacist Helper Name Role Phone Crystal Rosario MD Primary Care Provider Encounter Details Date Type Department Care Team (Late st Contact Info) Description 01/14/2022 Orders Only [facility] MED & PEDS [address] [place], [place] [phone] Crystal Rosario MD [address] [place], [place] [phone] Esophageal dysmotility (Primary Dx); Osteopenia, unspecified location [...] Description 09/04/2024 2:00 PM EDT Office Visit [facility] [address] [place], [place] [phone] Crystal Rosario MD [address] [place], [place] [phone] documented as of this encounter Visit Diagnoses Diagnosis Esophageal dysmotility- Primary Dyskinesia of esophagus Osteopenia, unspecified location documented in this encounter Care Teams Pharmacist Helper Relationship Specialty Start Date End Date Crystal Rosario MD [address] [place] [address] PCP - General Family Medicine 02/21/20 documented as of this encounter
--- OUTSIDE RECORDS SUMMARY | 2024-08-16 13:00 | XMS_ITS | Clinical Summary ---
[facility] Organization [facility] Address [address] [place] [address] Care Team Providers Care Station Installer And Repairer Name Role Phone Renetta Wan MD Primary Care Provider [phone] Immunizations Name Administration Dates Next Due Moderna [...] age to complete this topic Care Teams Station Installer And Repairer Relationship Specialty Start Date End Date Renetta Wan MD [address] [place] [address] PCP - General 07/04/23
--- OUTSIDE RECORDS SUMMARY | 2024-08-16 13:00 | XMS_ITS | Patient Health Record ---
Author Organization [facility] Address [address] [place] [address] Care Team Providers Care Database Programmer Analyst Name Role Phone Nikky Hodges Primary Care Provider UnavailMaster Amaya [phone] Reason For Referral No Information Plan Of Treatment No Information Insurance Providers Payer Name Payer Address Payer Phone Subscriber Number Group Number Insured Name Patient Relationship to Insured Coverage Start Date Coverage End Date [facility] [address] [address] [place] [phone] [id number] MAGDALENA LAO Self - patient is the insured
== END 2024-08-16 12:57 | disposition home or self-care (01) ==
LOC: HO.MAMMO 12:56
PROVIDERS: PCP Internal Medicine; Visit Provider Internal Medicine
DX: Z12.31 Encounter for screening mammogram for malignant neoplasm of breast (principal)
CPT/HCPCS: 77063; 77067

== ENCOUNTER → 2024-08-16 13:30 | Outpatient (BNV) | payer OTHER, SELFPAY | PROVIDERS: PCP Internal Medicine; Visit Provider Internal Medicine | DX: Z12.31 Encounter for screening mammogram for malignant neoplasm of breast (principal) | CPT/HCPCS: 77063; 77067 ==

== ENCOUNTER 2024-09-10 08:43 | Outpatient (REF) | payer OTHER, SELFPAY ==
--- OUTSIDE RECORDS SUMMARY | 2024-09-10 08:55 | XMS_ITS | Encounter Summary ---
Author Organization [facility] Address [address] [facility] [address] [place] [address] Phone Care Team Providers Care Hatchery Supervisor Name Role Phone Steven Alexander MD Primary Care Provider [phone] Encounter Details Date Type Department Care Team (Late st Contact Info) Description 05/16/2018 Ancillary Orders [facility],Outside Imaging [address] [place], [place] [phone] System, Provider Not In, [place] [address] Social History Tobacco Use Types Packs/Day Years Used Date Smoking Tobacco: Never Smokeless Tobacco: Never Alcohol Use Standard Drinks/Week Comments Not Currently 0 (1 standard drink = 0.6 oz pur e alcohol) Comments Unknown Sex and Gender Information Value Date Recorded Sex Assigned at Female 06/26/2018 1:27 PM EDT Legal Sex Female 4:09 PM EDT Gender Identity Female 06/26/2018 1:27 PM EDT Sexual Orientation Not on file documented as of this encounter Plan of Treatment Not on file documented as of this encounter Results * US Breast Outside (No Interpretation) (11/20/2017 12:00 AM EDT) Narrative SYSTEMGENERATED, DOCUMENTATION - 05/16/2018 11:44 AM EDT This study is for PACS storage only and not for interpretation. us Provider Not In System PhD IMG OUTSIDE IMAGING W /OUT INTERPRETATION Final Result documented in this encounter Visit Diagnoses Not on filedocumented in this encounter Care Teams Hatchery Supervisor Relationship Specialty Start Date End Date Steven Alexander MD [address] [address] [email or web address] PCP - General Family Medicine 05/08/18 documented as of this encounter Additional Source Comments The information contained in this document represents components of the legal health record. It is not the complete legal health record.[facility]
--- OUTSIDE RECORDS SUMMARY | 2024-09-10 08:55 | XMS_ITS | Encounter Summary ---
Author Organization [employer] Address [address] [place] [address] [address] [place] [address] Care Team Providers Care Soap Chipper Name Role Phone Crystal Rosario MD Primary Care Provider [phone] Encounter Details Date Type Department Care Team ([facility] st Contact Info) Description 01/14/2022 Orders Only [facility] MED [facility] PEDS [address] [place], [place] [phone] Crystal Rosario MD [address] [place], [place] [phone] Esophageal dysmotility (Primary Dx); Osteopenia, unspecified location [...] location documented in this encounter Care Teams Soap Chipper Relationship Specialty Start Date End Date Crystal Rosario MD [address] [place] [address] PCP - General Family Medicine 02/21/20 Dariusz Altman Consulting Physician Neurology 09/04/24 documented as of this encounter
--- OUTSIDE RECORDS SUMMARY | 2024-09-10 08:55 | XMS_ITS | Clinical Summary ---
Author Organization [facility] it Address [address] [place] [address] Care Team Providers Care Scaffold Erector Name Role Phone Renetta Wan MD Primary Care Provider [phone] Immunizations Name Administration Dates Next Due Moderna [...] Exam 1960 Colorectal Cancer Screening: Colonoscopy 01/05/2022 Falls Risk Assessment 01/05/2022 Hepatitis C Screening 01/05/2022 Osteoporosis Screening (Bone Density Screening) 01/05/2022 Social Influencers of Health Screening 01/05/2022 Hypertension/CHF/CAD Annual BMP Blood Test 08/31/2023 RSV Immunization Adult Patients (1 - 1-dose 75+ series) 09/26/2023 COVID-19 Vaccine ( - season) 2023 05/01/2023, 06/28/2021, 04/29/2020, Additional history exists Hepatitis A Vaccines (2 of 2 - Risk 2-dose series) 11/01/2023 05/01/2023 Depression Screening 02/07/2024 Diabetes: Annual Urine Albumin-Creatinine Ratio (uACR) 05/29/2024 [...] age to complete this topic Care Teams Scaffold Erector Relationship Specialty Start Date End Date Renetta Wan MD [address] [place] [address] PCP - General 07/04/23
--- OUTSIDE RECORDS SUMMARY | 2024-09-10 08:55 | XMS_ITS | Patient Health Record ---
Author Organization [facility] Address [address] [place] [address] Care Team Providers Care Cut To Length Operator Name Role Phone Nikky Hodges Primary Care Provider UnavailMaster Amaya [phone] Reason For Referral No Information Plan Of Treatment No Information Insurance Providers Payer Name Payer Address Payer Phone Subscriber Number Group Number Insured Name Patient Relationship to Insured Coverage Start Date Coverage End Date [facility] [address] [address] [place] [phone] [id number] MAGDALENA LAO Self - patient is the insured
[2024-09-10 14:19] LABS: MANUAL DIFF FLAG NO
[2024-09-10 14:27] LABS: Hematocrit 40.3 % (37.0-47.0); Hemoglobin 13.6 g/dl (12.0-16.0); Imm Gran Abs Auto 0.01 X10*3/uL (0.00-0.03); Imm Gran Pct Auto 0.2 % (0.0-0.4); Lymphocytes Absolute Auto 1.2 X10*3/uL (1.2-4.9); Mean Corpuscular HGB Conc 33.7 g/dl (31.0-35.0); Mean Corpuscular Hemoglobin 32.2 pg (27.0-33.0); Mean Corpuscular Volume 95.5 fL (80.0-98.0); NRBC Abs Auto 0.000 X10*3/uL (0.0-0.012); NRBC Pct Auto 0.0 /100WBC (0.0-0.2); Platelet Count 207 X10*3/uL (160-400); Red Blood Count 4.22 X10*6/uL (4.20-5.50); White Blood Count 5.7 X10*3/uL (4.8-10.8)
[2024-09-10 14:58] LABS: Alanine Aminotransferase 50 U/L (0-31); Albumin Level 4.4 g/dL (3.5-5.0); Alkaline Phosphatase 98 U/L (39-117); Anion Gap 12 (12-20); Aspartate Amino Transferase 43 U/L (5-31); Blood Urea Nitrogen 10 mg/dL (9-16); Calcium 9.6 mg/dL (8.4-10.2); Carbon Dioxide 29 mmol/L (22-29); Chloride 104 mmol/L (96-108); Cholesterol 230 mg/dL (<200); Estimated Glomerular Filt Rate 53; HDL Cholesterol 54 mg/dL (>40); Potassium 4.2 mmol/L (3.3-5.1); Sodium 141 mmol/L (135-145); Total Protein 8.1 g/dL (6.5-8.0); Triglycerides 140 mg/dL (<150)
[2024-09-10 15:18] LABS: Folate 13.5 ng/mL (> or = 4.0); Vitamin B12 697 pg/mL (200-900)
== END 2024-09-10 08:44 | disposition home or self-care (01) ==
LOC: HO.CHCLDS 08:43
PROVIDERS: Visit Provider Family Medicine
DX: E11.65 Type 2 diabetes mellitus with hyperglycemia (principal); M85.80 Other specified disorders of bone density and structure, unspecified site
CPT/HCPCS: 36415; 80053; 80061; 82306; 82607; 82746; 85025